=== PATIENT | female | born 1975 | race Caucasian/White ===

== ENCOUNTER → 2019-12-23 09:02 | Outpatient (BNVA) | payer OTHER, SELFPAY | PROVIDERS: Family Provider Internal Medicine; PCP Internal Medicine; Visit Provider Internal Medicine Rheumatology | DX: M35.00 Sjogren syndrome, unspecified (principal); I49.9 Cardiac arrhythmia, unspecified; H04.123 Dry eye syndrome of bilateral lacrimal glands; Q24.5 Malformation of coronary vessels; M25.50 Pain in unspecified joint | CPT/HCPCS: 36415; 80076; 82306; 82565; 85025; 85651; 86140; 99214 ==

== ENCOUNTER 2020-03-17 13:47 | Outpatient (CLI) | payer OTHER, SELFPAY ==
--- NOTE | 2020-03-17 14:15 | USCV_ITS ---
Norma Rodriguez Age: 44 Gender: F : 1975 Exam Date: 03/17/2020 14:15 Ordering Phys: Ariel Dueñas MD (Andy) ([email or web address]) Technologist: Carlie Alonso Exam Location: [facility] [place] Indication: HISTORY: Lower extremity pain. PROCEDURES: Bilateral duplex Venous Insufficiency study of the Deep and Superficial systems was carried out according to normal protocol with the patient in supine positon for deep system and dependent position for the superficial system. FINDINGS: There is no evidence of bilateral deep vein thrombosis. No evidence of superficial thrombosis in the bilateral saphenous system. Venous reflux is demonstrated in the RIGHT greater saphenous vein with a spectral Doppler display of greater than 500 milliseconds at all levels evaluated. No venous reflux noted in the RIGHT small saphenous vein. No venous reflux noted in the LEFT greater saphenous vein. No venous reflux noted in the LEFT small saphenous vein. CONCLUSIONS 1. No evidence of DVT in the above-mentioned identifiable veins. 2. Significant venous reflux of greater than 500 ms were noted on the right side, distal to the saphenofemoral junction and throughout the greater saphenous vein segments-proximal, mid, distal and below-knee segments. No significant venous reflux was noted in the small saphenous vein segments.The venous dimensions were ranging area from 0.58 to 0.71 cm, in these segments and were at a depth of greater than 1.5 cm from the surface. 3. No significant venous reflux was noted on the left side 4. No significant venous reflux in the deep veins. Dr Natalia Carnes MD [facility] (Electronically Signed) Final Date: 18 March 2020 10:13 S
== END 2020-03-17 13:48 | disposition home or self-care (01) ==
LOC: RAD 13:49
PROVIDERS: PCP Internal Medicine; Visit Provider Thoracic Surgery (Cardiothoracic Vascular Surgery)
DX: I83.813 Varicose veins of bilateral lower extremities with pain (principal); M79.604 Pain in right leg; M79.605 Pain in left leg
CPT/HCPCS: 93970

== ENCOUNTER → 2020-05-20 11:50 | Outpatient (BNVA) | payer OTHER, SELFPAY | PROVIDERS: PCP Internal Medicine; Visit Provider Nurse Practitioner Family | DX: Z20.828 Contact with and (suspected) exposure to other viral communicable diseases (principal); B34.9 Viral infection, unspecified | CPT/HCPCS: 87426 ==

== ENCOUNTER → 2020-05-22 10:49 | Outpatient (BNVA) | payer OTHER, SELFPAY | PROVIDERS: PCP Internal Medicine; Visit Provider Obstetrics & Gynecology | DX: R19.5 Other fecal abnormalities (principal); R14.0 Abdominal distension (gaseous); Z83.79 Family history of other diseases of the digestive system | CPT/HCPCS: 82784; 83516 ==

== ENCOUNTER 2020-05-29 08:41 | Day surgery (SDC) | payer OTHER, SELFPAY ==
[2020-05-28 07:34] VITALS: BMI 30.8
[2020-05-29 09:01] VITALS: BP 133/94; PULSE 82; RESP 18; TEMP 36.5; O2SAT 98
--- NOTE | 2020-05-29 09:10 | W.PM.OPSUD ---
Surgery/Procedure H&P Update DATE OF PROCEDURE: May 29, 2020 DATE H&P PERFORMED: 05/25/20 PREOP DIAGNOSIS: nv PLANNED PROCEDURE: Operation Date: 05/29/20 09:30 Proposed Procedures p EGD 36192 K52.9(Not Applicable) - Fernandez Veloz MD
--- NOTE | 2020-05-29 09:11 | ANES.PREANE2 ---
Pre-Anesthetic Assessment Pre-Anesthetic Assessment: Height/Weight: Height 1.7 m Weight 89.358 kg Temp Pulse Resp BP Pulse Ox 97.7 F 82 18 133/94 98 05/29/20 09:01 05/29/20 09:01 05/29/20 09:01 05/29/20 09:01 05/29/20 09:01 Preop Diagnosis: Nausea/Vomiting Proposed Procedure: Operation Date: 05/29/20 09:30 Proposed Procedures p EGD 63973 K52.9(Not Applicable) - Fernandez Veloz MD Familial anesthetic complications: PONV, but has done fine w/ endoscopies in the past Was Beta Aleksandar taken within 24 hours: N/A Last intake: Intake Last Liquid Date 05/28/20 Last Liquid Time 20:00 Last Solid Date 05/28/20 Last Solid Time 20:00 Social: Social History: No alcohol and No tobacco Exam: Pre-Anes Outpt Exam: alert, oriented x 3, clear to auscultation bilaterally and regular rate & rhythm Airway: Cervical ROM: WNL MP: 3 Dentition: Full (fragile teeth d/t sjogren's syndrome (dry mouth)) CV/HEM: CV/HEM: Arrythmia and HTN Comments: ? Myocardial bridge/internalized coronary vessels Patient can achive > 4 mETS without chest pain, syncope, SOB GI: GI: GERD Anesthetic Plan: ASA status: 2 Anesthesia: MAC Risk of > 500 ml blood loss (7ml/kg in children): No PFSH Anesthesia PFSH: Medical History (Updated 05/25/20 @ 14:09 by Fernandez Veloz MD) Dry eyes Dry mouth GERD (gastroesophageal reflux disease) HTN (hypertension) Myocardial bridge Primary Sjogren's syndrome Ventricular arrhythmia Surgical History S/P ACL repair S/P cholecystectomy Status post tubal ligation Family History Father Hypertension Cancer LUNG/PROSTATE Grandmother Diabetes CAD (coronary artery disease) Stroke Chronic kidney disease (CKD) Daughter Diabetes Mother CAD (coronary artery disease) Grandfather CAD (coronary artery disease) Social History (Updated 05/25/20 @ 13:[address]) Smoking and tobacco status: never smoked Alcohol intake: never History of recent travel: No Data Anesthesia Cardiac Studies: No Data to Display
[2020-05-29] MEDS: sodium chloride 0.9% 1,000 ML 30 ML IV (09:12)
[2020-05-29 09:23] VITALS: BP 116/65; PULSE 78; RESP 16; TEMP 36.7; O2SAT 98
[2020-05-29 10:32] VITALS: BP 119/89; PULSE 87; RESP 16; O2SAT 97
--- NOTE | 2020-05-29 18:38 | ANE.PACU2 ---
Inpatient post-anesthesia follow up: Airway intact: Yes Vital signs: Temperature 98.1 F Pulse Rate 87 Respiratory Rate 16 Blood Pressure 119/89 Pulse Oximetry 97 Oxygen Delivery Me thod Room Air Oxygen Flow Rate Fraction of Inspir ed Oxygen Hydration adequate: Yes Nausea and vomiting: No Pain level: 1 Mental status: Baseline
== END 2020-05-29 10:51 | disposition home or self-care (01) ==
PROVIDERS: PCP Internal Medicine; Visit Provider Internal Medicine
PROC: 0DJ08ZZ Inspection of Upper Intestinal Tract, Via Natural or Artificial Opening Endoscopic (ICD-10-PCS; CPT 43235; principal; 2020-05-29 09:30)
DX: R10.11 Right upper quadrant pain (principal); K52.9 Noninfective gastroenteritis and colitis, unspecified; I10 Essential (primary) hypertension; K21.9 Gastro-esophageal reflux disease without esophagitis
CPT/HCPCS: 12345; 43239; 88305; J2704; J7030

== ENCOUNTER 2020-06-02 07:36 | Outpatient (CLI) | payer OTHER, SELFPAY ==
--- NOTE | 2020-06-02 09:00 | CT_ITS ---
WS: [id number] CT ABDOMEN AND PELVIS WITH CONTRAST HISTORY: R63.4 - Abnormal weight loss TECHNIQUE: Imaging performed of the abdomen and pelvis with IV contrast. Single phase imaging of the abdomen. Coronal and sagittal reformats are submitted. All CT scans at [facility] use at least one of these dose optimization techniques: automated exposure control; mA and/or kV adjustment per patient size (includes targeted exams where dose is matched to clinical indication); or iterativ e reconstruction. IV CONTRAST: Omnipaque 300; 95 mL IV. Oral contrast: Yes. DLP: 1366.28 mGy.cm COMPARISON: 03/05/2010 Lower thorax: Lung bases are clear. Heart is normal size. Small hiatal hernia. Liver/biliary system: Normal size with no intrahepatic dilatation. Gallbladder: Status post cholecystectomy. Normal common bile duct. Pancreas: Normal. Spleen: Spleen is top normal size at 13 cm in length. Adrenal glands: Normal. Right kidney: Numerous cysts and calcifications associated with the RIGHT kidney. The largest cyst in the mid kidney measures 5.8 x 5.2 cm. No solid mass is identified. Largest calcification is 9 mm in the mid kidney. Left kidney: Numerous calcifications and cysts scattered throughout the kidney. The largest cyst kidn ey maximum diameter of 2.3 cm. There are numerous calcifications with the largest cluster measuring 1 .2 cm maximum diameter. No renal obstruction. Aorta: Normal. Lymphadenopathy: There are numerous small lymph nodes in the central mesentery along with infiltratio n of the central mesentery no pseudocapsule. There are several lymph nodes which are now present. The largest with a short axis diameter of 12 mm. There are a few small retroperitoneal lymph nodes in th e periaortic and retrocaval distribution which are not enlarged. New since the prior study. Free fluid: None. GI tract: Mild constipation. The appendix is normal. Abdominal wall: Unremarkable abdominal wall. No hernia. Pelvis: Well-distended urinary bladder. Prior hysterectomy. Bones: Mild degenerative disc disease and endplate osteophytes at L5-S1. CT/CT abdomen pelvis w con* [id number] IMPRESSION: 1. 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 Findings can be associated with chronic nonspecific inflammatio n of the small bowel mesentery. Additional evaluation for low-grade lymphoma is also within the differential. 2. Increasing size and number of bilateral renal cysts and renal calcification s. 3. Prior hysterectomy and cholecystectomy.
[2020-06-02] MEDS: iohexol 300 mg/mL 100 mL Btl IV (09:09)
== END 2020-06-02 07:37 | disposition home or self-care (01) ==
LOC: RAD 07:38
PROVIDERS: PCP Internal Medicine; Visit Provider Internal Medicine
DX: R63.4 Abnormal weight loss (principal); K65.4 Sclerosing mesenteritis; N28.1 Cyst of kidney, acquired; N20.0 Calculus of kidney; Z90.49 Acquired absence of other specified parts of digestive tract; Z90.710 Acquired absence of both cervix and uterus
CPT/HCPCS: 74177; 87635

== ENCOUNTER → 2020-06-22 09:02 | Outpatient (BNVA) | payer OTHER, SELFPAY | PROVIDERS: PCP Internal Medicine; Visit Provider Internal Medicine Rheumatology | DX: M35.00 Sjogren syndrome, unspecified (principal); Z79.899 Other long term (current) drug therapy; K65.4 Sclerosing mesenteritis; R76.8 Other specified abnormal immunological findings in serum; R59.0 Localized enlarged lymph nodes; K90.0 Celiac disease | CPT/HCPCS: 36415; 80076; 81001; 82565; 83883; 84155; 84165; 85025; 85651; 99214 ==

== ENCOUNTER → 2020-06-24 16:00 | Outpatient (BNVA) | payer OTHER, SELFPAY | PROVIDERS: PCP Internal Medicine; Visit Provider Internal Medicine | DX: R59.0 Localized enlarged lymph nodes (principal); K90.41 Non-celiac gluten sensitivity; R43.0 Anosmia | CPT/HCPCS: 87426 ==

== ENCOUNTER 2020-09-08 08:00 | Outpatient (CLI) | payer OTHER, SELFPAY ==
--- NOTE | 2020-09-08 09:30 | CT_ITS ---
WS: [id number] CT ABDOMEN PELVIS TECHNIQUE: Contrast-enhanced CT of the abdomen and pelvis with coronal and sagittal reformatted image s. CLINICAL INFORMATION: R59.0 - Localized enlarged lymph nodes COMPARISON: CT abdomen pelvis June 02, 2020 and March 05, 2010 DLP: 1144.[address] scans at [facility] use at least one of these dose optimization techniques: automat ed exposure control; mA and/or kV adjustment per patient size (includes targeted exams where dose is matched to clinical indication); or iterative reconstruction. FINDINGS: Previously described findings of sclerosing mesenteritis is unchanged. No evidence of progr ession. Prominent lymph nodes along the mesenteric root similar to the prior examination. No progress ed lymphadenopathy. Minimal induration in the central mesentery. No periaortic or retroperitoneal lym phadenopathy. Prior postoperative changes cholecystectomy and hysterectomy. Diffuse fatty infiltration of the liver . Normal portal vein and splenic vein. Normal spleen. Normal GE junction. Lung bases are well aerated . Normal pancreas. Adrenal glands are normal. No hydronephrosis in either kidney. Numerous bilateral renal cysts largest in the right measuring 6.0 x 4.7 CM. Nonobstructing calyceal renal parenchymal ca lculi. Both ureters are decompressed. A few sigmoid diverticuli. No evidence of small or large bowel obstruction. No free fluid in the pelv is. Normal caliber abdominal aorta. Tiny fat-containing umbilical hernia. Disc osteophyte complex L3-L4 with moderate to severe central c anal stenosis. Disc space narrowing L5-S1. Right ovarian cyst measuring 2.[address]/CT abdomen pelvis w con* [id number] IMPRESSION: 1. Previously described sclerosing enteritis is unchanged in the central mesen sherin with stable prominent lymph nodes. No evidence of progression. 2. No progressed abdominal or pelvic lymphadenopathy. 3. Stable bilateral renal cysts and nonobstructing renal parenchymal and calyc eal tip calculi. Largest right renal cyst measures 6.0 x 4.7 cm. 4. Mild diffuse fatty infiltration of the liver. 5. Prior cholecystectomy and hysterectomy. 6. Overall no significant changes from previous.
[2020-09-08] MEDS: iohexol 300 mg/mL 50 mL Btl PO (09:31)
[2020-09-08] MEDS: iohexol 300 mg/mL 100 mL Btl IV (09:31)
== END 2020-09-08 08:01 | disposition home or self-care (01) ==
LOC: RADWPI 08:02
PROVIDERS: PCP Internal Medicine; Visit Provider Internal Medicine
DX: R59.0 Localized enlarged lymph nodes (principal); Z90.49 Acquired absence of other specified parts of digestive tract; Z90.710 Acquired absence of both cervix and uterus; K76.0 Fatty (change of) liver, not elsewhere classified; Q61.02 Congenital multiple renal cysts; K52.9 Noninfective gastroenteritis and colitis, unspecified
CPT/HCPCS: 74177; Q9967

== ENCOUNTER 2020-10-22 09:42 | Outpatient (CLI) | payer OTHER, SELFPAY ==
--- NOTE | 2020-10-22 09:47 | XR_ITS ---
WS: [id number] KUB, AP view, 10/22/2020 Clinical Data: stones Comparison: KUB, 03/05/2010, CT abdomen and pelvis, 09/08/2020. Findings: No abnormal intraabdominal masses are seen. There is no dilatated small bowel or evidence of obstruct ion. There are numerous bilateral renal calcifications. The largest calcification is 1.3 cm in the left ki dney and the largest is 0.9 cm in the right kidney. There is is a large amount of fecal material thro ughout the colon. XR/XR KUB [id number] Impression: Numerous bilateral renal calculi.
== END 2020-10-22 09:43 | disposition home or self-care (01) ==
LOC: RAD 09:45
PROVIDERS: PCP Internal Medicine; Visit Provider Urology
DX: N20.0 Calculus of kidney (principal)
CPT/HCPCS: 74018

== ENCOUNTER → 2020-10-23 08:38 | Outpatient (BNVA) | payer OTHER, SELFPAY | PROVIDERS: PCP Internal Medicine; Visit Provider Urology | DX: N20.9 Urinary calculus, unspecified (principal) | CPT/HCPCS: 81003 ==

== ENCOUNTER → 2020-10-26 09:31 | Outpatient (BNVA) | payer OTHER, SELFPAY | PROVIDERS: PCP Internal Medicine; Visit Provider Urology | DX: N20.0 Calculus of kidney (principal); Z20.822 Contact with and (suspected) exposure to COVID-19 | CPT/HCPCS: 87635 ==

== ENCOUNTER 2020-10-30 11:36 | Day surgery (SDC) | payer OTHER, SELFPAY ==
[2020-10-29 14:42] VITALS: BMI 27.3
[2020-10-30] VITALS (16 sets, daily range): BP systolic 95–124; BP diastolic 57–87; PULSE 54–108; RESP 16–18; TEMP 36.4–37.2; O2SAT 95–99
--- NOTE | 2020-10-30 | SCC_ITS ---
Procedure Done: 1. Cystoscopy with right retrograde ureteropyelogram 2. Right ureteroscopy, laser lithotripsy, stent (4.5 x 28 cm no string) 33.1 seconds of fluoroscopic guidance, for a cumulative dose of 6.94 mGy, was provided to Dr. Alvarado by the radiology department. C-arm images of the abdomen were saved for the patient's permanent record. [facility]
[2020-10-30] MEDS: sodium chloride 0.9% 1,000 ML 30 ML IV (12:00)
--- NOTE | 2020-10-30 12:18 | P.ANESASSM_ITS ---
Pre-Anesthetic Assessment Pre-Anesthetic Assessment: Height/Weight: Height 1.7 m Weight 79.379 kg Temp Pulse Resp BP Pulse Ox 99.0 F 77 18 108/72 99 10/30/20 11:54 10/30/20 11:54 10/30/20 11:54 10/30/20 11:54 10/30/20 11:54 Preop Diagnosis: Right distal ureteral calculi Proposed Procedure: Operation Date: 10/30/20 13:00 Proposed Procedures p Cystoscopy 08830 66901 23431 N20.0 N20.1(Not Applicable) - Curtis Alvarado MD s Retrograde Pyelogram(Right) - MD milad Prieto Ureteroscopy(Not Applicable) - Curtis Alvarado MD s Laser Lithotripsy(Not Applicable) - Curtis Alvarado MD s Ureteral Stent Placement(Not Applicable) - Curtis Alvarado MD Was Beta Aleksandar taken within 24 hours: N/A Was Clonidine taken within 24 hours: N/A Last intake: Intake Last Liquid Date 10/30/20 Last Liquid Time 07:00 Last Solid Date 10/30/20 Last Solid Time 18:30 Social: Social History: No alcohol and No tobacco Exam: Pre-Anes Outpt Exam: alert, oriented x 3, clear to auscultation bilaterally and regular rate & rhythm Airway: Submandibular: WNL Cervical ROM: WNL MP: 2 Dentition: Full CV/HEM: CV/HEM: Arrythmia (SVT) and HTN GI: GI: GERD Comments: Celiac Dz Neuropsych: Neuropsych: HERNANDEZ Anesthetic Plan: ASA status: 2 Anesthesia: General Risk of > 500 ml blood loss (7ml/kg in children): No PFSH Anesthesia PFSH: Medical History Adult celiac disease Bilateral renal stones GERD (gastroesophageal reflux disease) HTN (hypertension) Migraine headache with aura Myocardial bridge Nephrolithiasis Primary Sjogren's syndrome Rheumatoid factor positive Right ureteral stone Sclerosing mesenteritis Ventricular arrhythmia Surgical History H/O vaginal surgery (10/04/02) A&P repair, Katelyn application. Dx: Cystocele, rectocele, HUMA. [place]. Card [place] [facility] [place]. History of esophagogastroduodenoscopy (EGD) (10/05/20) with sphincterotomy of sphincter of oddi. Performed in [place] S/P ACL repair (~1993) Open on Right S/P bilateral breast reduction (~03/2000) S/P cholecystectomy (~1996) Laparoscopic. Performed by Dr. Burgess at [facility] in [place] S/P cystoscopy with ureteral stent placement (03/06/10) S/P laparoscopic assisted vaginal hysterectomy (LAVH) (12/04/18) With LSO, RS, Anterior vaginal repair, Solyx SIS, cystoscopy. Dx: Incomplete uterovaginal prolapse, HUMA. Performed by Dr. Card at [facility] [place]. S/P tubal ligation (06/01/12) LTF. Performed by Dr. Card at [facility] [place]. Status post hysteroscopic ablation of endometrium (05/09/17) NovaSure. Dx: Menorrhagia. Performed by Dr. Card at [facility] [place]. Family History Father Hypertension Cancer LUNG/PROSTATE Grandmother Diabetes Maternal CAD (coronary artery disease) Maternal Stroke Maternal Chronic kidney disease (CKD) Maternal Daughter Diabetes Mother CAD (coronary artery disease) Arthritis Family history of thyroid problem Grandfather CAD (coronary artery disease) Paternal Sister Asthma Migraine headache Family/Other CAD (coronary artery disease) Maternal aunt Chronic kidney disease (CKD) Maternal aunt Social History Smoking and tobacco status: never smoked Alcohol intake: never History of recent travel: No Data Anesthesia Cardiac Studies: No Data to Display
--- NOTE | 2020-10-30 13:06 | P.HPUD_ITS ---
Surgery/Procedure H&P Update DATE OF PROCEDURE: October 30, 2020 DATE H&P PERFORMED: 10/23/20 H&P UPDATE INFORMATION: I have reviewed H&P completed within last 30 days, I have examined patient prior to procedure, No changes to prior documentation and H&P is in [facility] EMR on date indicated CHANGES TO PREVIOUS DOCUMENTATION: In retrospect she thinks she has had this right-sided flank pain now likely consistent with renal colic for probably off a nd on for 3 years. Reviewed that thankfully her kidney looks much better preserved than that would imply. We also reviewed again the concern related to chronic inflammatory changes below the stones which may make access to the upper tract much more tenuous. Discussed stenting again as the sole treatment today if could not successfully get to the stone with the scope safely or even considering pe rcutaneous nephrostomy tube placement with antegrade stent placement if access cannot be obtained. She expressed understanding PREOP DIAGNOSIS: Right distal ureteral calculi PLANNED PROCEDURE: Operation Date: 10/30/20 13:00 Proposed Procedures p Cystoscopy 23662 [id number] 72956 N20.0 N20.1(Not Applicable) - Curtis Alvarado MD s Retrograde Pyelogram(Right) - Curtis Alvarado MD s Ureteroscopy(Not Applicable) - Curtis Alvarado MD s Laser Lithotripsy(Not Applicable) - Curtis Alvarado MD s Ureteral Stent Placement(Not Applicable) - Curtis Alvarado MD
[2020-10-30] MEDS: levofloxacin-dextrose 5 % 500 MG/100 ML PREMIX 100 MG IV (13:12)
--- NOTE | 2020-10-30 14:29 | SUR.OPER ---
family was updated via cell phone
--- NOTE | 2020-10-30 14:52 | P.OP_ITS ---
Operative Report Date of procedure: October 30, 2020 Pre-op Diagnosis: Right distal ureteral calculi Post-op diagnosis: same Procedure Done: 1. Cystoscopy with right retrograde ureteropyelogram 2. Right ureteroscopy, laser lithotripsy, stent (4.5 x 28 cm no string) Specimens removed/disposition: Stone fragments Pathology: Stone fragments Surgeon: Christiano Anesthesia: General Estimated blood loss: None Urine output: Not measured Complications: None Findings: Stones in the expected position. Access to them was relatively easy. Completely fragmented and fragments were removed with basketing and flushing of the ureter. 4.5 Scottish by 28 cm double-pigtail stent without string was left in place. Condition: stable Disposition: PACU Brief History: Is a 44-year-old white female with a history of complex stone disease MSK type pattern She was found on recent CT scan done for right flank pain to have a column of stones with mild obstructive changes. The column was in the distal ureter several centimeters above the right ureteral orifice. She is admitted for endoscopic treatment of the stones. Procedure: After routine preoperative evaluation examination and obtaining of informed consent she was taken to the operating suite on 10/30/2020 where general anesthesia was administered without difficulty after appropriate timeout was performed, SCDs confirmed to be functioning, preoperative antibiotics administered, beta-yong protocol confirmed. Prepped and draped in the usual sterile fashion in dorsolithotomy position p aying careful attention to avoiding pressure points. 21 Scottish cystoscope with 30 degree lens was introduced into the urethra meatus and advanced into the bladder without difficulty. The bladder was systematically examined and found to be within normal limits. An 8 Scottish cone-tip catheter was intubated to the right ureteral orifice for right retrograde ureteropyelogram which demonstrated normal caliber of the distal ureter extending about 3 cm from the right ureteral orifice up to the column of stones seen previously. The contrast easily advanced beyond the stone into the proximal ureter. No additional stones were seen in the ureter proximal to this column that was already identified. A flexible tip guidewire was advanced up the ureter thankfully easily bypassing the stone column and curling in the area of the renal pelvis. The distal ureter was then dilated with an 18 Scottish 4 cm balloon. The 7.5 Scottish offset semirigid ureteroscope was advanced up the ureter next to the guidewire and the stones were encountered in the expected position. A 365 ?m thulium superpulse laser fiber was utilized for fragmentation of the stones. The stones were methodically fragmented with combination of fragmentation and dusting technique one by one until the column was completely fragmented. A good portion of the sand and fragmentation particles flushed free from the ureter as the process continued the remaining pieces which were quite numerous were removed with a parachute basket with multiple passes. No tension and no problem removing these fragments. Final passage showed no large fragments and very little sand remaining. The scope was passed up to the UPJ. The ureter was again inspected as the scope was removed. There was some inflammatory change as expected where the stones have been located distally and for that reason it was decided to leave a stent. A 4.5 Scottish by 28 cm double-pigtail stent was then advanced over the guidewire through the cystoscope into appropriate position as confirmed via fluoroscopy. No string. The bladder had a large amount of sand fragments that were flushed free from the bladder. Final inspection revealed stent in good position. No active bleeding. And the procedure was completed. She tolerated procedure well without complications and was awakened in the operating room and returned to recovery room in stable condition. PLANS: 1. Anticipate discharge from outpatient surgery 2. Follow-up next week for cystoscopy and stent removal. Associated Problem List Diagnoses (1) Right ureteral stone: (2) Bilateral renal stones:
[2020-10-30] MEDS: fentaNYL 50 mcg/mL INJ 2mL IVP (14:57)
[2020-10-30] MEDS: HYDROmorphone 1 mg/mL INJ 1 mL 0.5 MG IVP (15:17)
--- NOTE | 2020-10-30 15:25 | SUR.PHASEI ---
pt awake on admit to PACU, PT RESTLESS WRITHING IN BED C/O OF PAIN SEE MED GIVEN, PT THEN CALMS DOWN, VSS AND THEN AWAKES AGAIN MOANING IN PAIN,VSS SEE PAIN MED GIVEN PER DR HERNANDEZ'S OK, HE ORDERED HER TO HAVE DILAUDID FOR PAIN IN PACU.
[2020-10-30] MEDS: ondansetron 2 mg/ML SDV 2 mL 4 MG IVP (16:20)
--- NOTE | 2020-10-30 16:21 | ANE.PACU2 ---
Inpatient post-anesthesia follow up: Airway intact: Yes Vital signs: Temperature 97.5 F Pulse Rate 70 Respiratory Rate 18 Blood Pressure 118/66 Pulse Oximetry 96 Oxygen Delivery Me thod Room Air Oxygen Flow Rate 8 Fraction of Inspir ed Oxygen Hydration adequate: Yes Nausea and vomiting: No Pain level: 2 Mental status: Baseline
[2020-10-30] MEDS: metoclopramide 5 mg/mL SDV 2 mL 10 MG IVP (16:35)
== END 2020-10-30 17:24 | disposition home or self-care (01) ==
PROVIDERS: PCP Internal Medicine; Visit Provider Urology
PROC: 0TJB8ZZ Inspection of Bladder, Via Natural or Artificial Opening Endoscopic (ICD-10-PCS; CPT 52000; principal; 2020-10-30 13:00)
PROC: (CPT 74420; 2020-10-30 13:00)
PROC: 0TJ98ZZ Inspection of Ureter, Via Natural or Artificial Opening Endoscopic (ICD-10-PCS; CPT 52351; 2020-10-30 13:00)
PROC: (CPT 52356; 2020-10-30 13:00)
PROC: (CPT 50605; 2020-10-30 13:00)
DX: N20.1 Calculus of ureter (principal); K21.9 Gastro-esophageal reflux disease without esophagitis; I10 Essential (primary) hypertension
CPT/HCPCS: 52356; 76000; 82365; 88300; 96374; 96375; C2625; J1100; J1170; J1956; J2250; J2405; J2704; J2765; J3010; J3490; J7030

== ENCOUNTER 2020-11-06 07:35 | Outpatient (CLI) | payer OTHER, SELFPAY ==
--- NOTE | 2020-11-06 07:39 | XR_ITS ---
WS: [id number] Exam: XR KUB [id number] Date/Time of Exam: 11/06/2020 7:47 AM Reason For Exam: post lithotripsy A right-sided double-J ureteral stent is in place appearing to be in appropriate position. There are numerous bilateral renal calculi noted. No bowel obstruction or free air. Marked constipation. Signs of prior cholecystectomy. XR/XR KUB [id number] IMPRESSION: 1. Right-sided ureteral stent in place in satisfactory location. 2. Multiple bilateral renal stones. 3. Constipation.
== END 2020-11-06 07:36 | disposition home or self-care (01) ==
LOC: RAD 07:38
PROVIDERS: PCP Internal Medicine; Visit Provider Urology
DX: Z98.890 Other specified postprocedural states (principal); N20.1 Calculus of ureter; Z96.0 Presence of urogenital implants; N20.0 Calculus of kidney; K59.00 Constipation, unspecified
CPT/HCPCS: 74018; 81003

== ENCOUNTER → 2020-11-12 11:50 | Outpatient (BNVA) | payer OTHER, SELFPAY | PROVIDERS: PCP Internal Medicine; Visit Provider Obstetrics & Gynecology | DX: Z01.419 Encounter for gynecological examination (general) (routine) without abnormal findings (principal); K59.00 Constipation, unspecified; R10.11 Right upper quadrant pain; R50.9 Fever, unspecified | CPT/HCPCS: 80053; 82150; 83690; 85007; 85027 ==

== ENCOUNTER 2020-11-16 16:12 | Outpatient (CLI) | payer OTHER, SELFPAY ==
--- NOTE | 2020-11-16 16:19 | XRR_ITS ---
PROCEDURE INFORMATION: Exam: XR Chest Exam date and time: 11/16/2020 4:25 PM Age: 44 years old Clinical indication: Other: Abnormal breath sounds; Prior surgery; Surgery type: Hysterectomy TECHNIQUE: Imaging protocol: XR of the chest. Views: 2 views. Total images: 2 COMPARISON: CR Chest 2 views* [id number] 05/28/2019 10:23 AM FINDINGS: Lungs: No visible active interstitial or alveolar airspace disease. Pleural spaces: Unremarkable. No pleural effusion. No pneumothorax. Heart/Mediastinum: Unremarkable. No cardiomegaly. Bones/joints: Unremarkable. Organs: Status post cholecystectomy. XR/XR chest 2V* [id number] IMPRESSION: Nonacute.
== END 2020-11-16 16:13 | disposition home or self-care (01) ==
PROVIDERS: PCP Internal Medicine; Visit Provider Internal Medicine
DX: R09.89 Other specified symptoms and signs involving the circulatory and respiratory systems (principal)
CPT/HCPCS: 71046

== ENCOUNTER → 2020-11-25 09:16 | Outpatient (BNVA) | payer OTHER, SELFPAY | PROVIDERS: PCP Internal Medicine; Visit Provider Nurse Practitioner Family | DX: N20.0 Calculus of kidney (principal); N20.9 Urinary calculus, unspecified; I10 Essential (primary) hypertension; Z79.899 Other long term (current) drug therapy | CPT/HCPCS: 80048; 81003; 82131; 82140; 82340; 82436; 82507; 82570; 83735; 83935; 84100; 84300; 84550 ==

== ENCOUNTER → 2020-12-14 08:50 | Outpatient (BNVA) | payer OTHER, SELFPAY | PROVIDERS: PCP Internal Medicine; Visit Provider Internal Medicine Rheumatology | DX: M35.00 Sjogren syndrome, unspecified (principal); R76.8 Other specified abnormal immunological findings in serum; K65.4 Sclerosing mesenteritis; N20.0 Calculus of kidney | CPT/HCPCS: 99214 ==

== ENCOUNTER 2021-01-04 07:16 | Outpatient (CLI) | payer OTHER, SELFPAY ==
--- NOTE | 2021-01-04 07:15 | XRR_ITS ---
PROCEDURE INFORMATION: Exam: XR Abdomen Exam date and time: 01/04/2021 7:15 AM Age: 45 years old Clinical indication: Condition or disease; Kidney or ureter condition; Calculus (stone) in kidney; Prior surgery; Surgery type: Hyst, tubal, ercp, gb; Additional info: Ureteral stone TECHNIQUE: Imaging protocol: XR of the abdomen. Views: Frontal supine view of the abdomen. 1 View. COMPARISON: CR XR KUB [id number] 11/06/2020 7:55 AM FINDINGS: Gastrointestinal tract: Normal. No bowel dilation. Organs: There is bilateral nephrolithiasis more prominently on the left side. This has not significantly changed since previous study. No definite ureteral calculi are seen. Small phleboliths are present in the pelvis. Bones/joints: Unremarkable. XR/XR KUB [id number] IMPRESSION: 1. Bilateral nephrolithiasis similar to the previous study. 2. No definite ureteral calculi.
== END 2021-01-04 07:17 | disposition home or self-care (01) ==
LOC: RAD 07:18
PROVIDERS: PCP Internal Medicine; Visit Provider Urology
DX: N20.1 Calculus of ureter (principal); N20.0 Calculus of kidney
CPT/HCPCS: 74018; 81003; 87086

== ENCOUNTER → 2021-02-13 14:54 | Outpatient (BNVA) | payer OTHER, SELFPAY | PROVIDERS: PCP Internal Medicine; Visit Provider Registered Nurse Neonatal Intensive Care | DX: Z20.822 Contact with and (suspected) exposure to COVID-19 (principal) | CPT/HCPCS: 87635 ==

== ENCOUNTER 2021-03-22 08:31 | Outpatient (CLI) | payer OTHER, SELFPAY ==
[2021-03-22] MEDS: iohexol 300 mg/mL 100 mL Btl IV (09:28)
--- NOTE | 2021-03-22 10:00 | CT_ITS ---
WS: [id number] CT ABDOMEN PELVIS TECHNIQUE: Noncontrast CT of the abdomen and contrast-enhanced CT of the abdomen and pelvis with kendra nal and sagittal reformatted images. CLINICAL INFORMATION: N20.1 - Calculus of ureter COMPARISON: CT 09/08/2020 and 06/02/2020 DLP: 1723.[address] scans at [facility] use at least one of these dose optimization techniques: automated e xposure control; mA and/or kV adjustment per patient size (includes targeted exams where dose is matc hed to clinical indication); or iterative reconstruction. FINDINGS: FINDINGS: Progressed right hydronephrosis with prominent right ureterectasis. This is progressed compared to pr evious. Pelvic phleboliths. No visualized obstructing renal or ureteral calculi. Delayed emptying of the right kidney. No opacification right ureter on the delayed images. No obstructing left renal or ureteral calculi. Multiple nonobstructing renal parenchymal calculi dayna lar in appearance. Multicystic kidneys bilaterally. 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 No evidence of progression. Promi nent lymph nodes along the mesenteric root similar to the prior examination. No progressed lymphadeno vickie. Minimal induration in the central mesentery. No periaortic or retroperitoneal lymphadenopathy. Prior postoperative changes cholecystectomy and hysterectomy. Diffuse fatty infiltration of the liver. Pneumobilia. Normal portal vein and splenic vein. Normal spl een. Normal GE junction. Lung bases are well aerated. Normal pancreas. Adrenal glands are normal. A few sigmoid diverticuli. No evidence of small or large bowel obstruction. No free fluid in the pel vis. Normal caliber abdominal aorta. Tiny fat-containing umbilical hernia. Disc osteophyte complex L3 -L4 with moderate to severe central canal stenosis. Disc space narrowing L5-S1. Right ovarian cyst me asuring 2.[address]/CT abdomen pelvis wo/w [id number] IMPRESSION: 1. Progressed right hydronephrosis with delayed emptying. Advanced right hydro nephrosis with ureterectasis. Ureter is dilated into the pelvis. No visualized obstructing renal or ureteral calculi. Recommend urology consultation. 2. No hydronephrosis in the left kidney. 3. Multicystic kidneys bilaterally. 4. Stable previously described slight sclerosing mesenteritis central mesenter y stable compared to the prior examination. Stable prominent lymph nodes. 5. No progressive abdominal or pelvic lymphadenopathy. 6. Prior cholecystectomy and hysterectomy.
== END 2021-03-22 08:32 | disposition home or self-care (01) ==
PROVIDERS: PCP Internal Medicine; Visit Provider Internal Medicine
DX: R63.4 Abnormal weight loss (principal); N20.1 Calculus of ureter; N13.30 Unspecified hydronephrosis; N13.4 Hydroureter; Q61.02 Congenital multiple renal cysts; Z90.49 Acquired absence of other specified parts of digestive tract; Z90.710 Acquired absence of both cervix and uterus
CPT/HCPCS: 74178; Q9967

== ENCOUNTER → 2021-03-24 13:09 | Outpatient (BNVA) | payer OTHER, SELFPAY | PROVIDERS: PCP Internal Medicine; Visit Provider Nurse Practitioner Women's Health | DX: R30.0 Dysuria (principal); N39.0 Urinary tract infection, site not specified | CPT/HCPCS: 81000; 87086 ==

== ENCOUNTER 2021-04-09 10:34 | Outpatient (CLI) | payer OTHER, SELFPAY ==
--- NOTE | 2021-04-09 10:15 | XR_ITS ---
WS: [id number] Exam: XR KUB [id number] Date/Time of Exam: 04/09/2021 10:38 AM Reason For Exam: stones Comparison 01/04/2021. Multiple calcifications are seen over the left renal silhouette suggesting multiple renal calculi. Th ere are also calcifications seen over the right kidney also suspicious for renal stones. No bowel obs truction or free air. Moderate amount stool in the colon. No sign of organ enlargement. Nonspecific b ilateral pelvic calcifications noted. Regional bony elements are intact. Degenerative changes of the lower lumbar spine. XR/XR KUB [id number] IMPRESSION: 1. Calcifications superimposing both kidneys more numerous on the left than the right suggesting renal stones. 2. No acute abdominal process.
== END 2021-04-09 10:35 | disposition home or self-care (01) ==
PROVIDERS: PCP Internal Medicine; Visit Provider Urology
DX: N20.0 Calculus of kidney (principal); Z20.822 Contact with and (suspected) exposure to COVID-19
CPT/HCPCS: 74018; 81003; 87635

== ENCOUNTER 2021-04-16 11:25 | Day surgery (SDC) | payer OTHER, SELFPAY ==
[2021-04-15 15:45] VITALS: BMI 28.0
[2021-04-16] VITALS (13 sets, daily range): BP systolic 85–141; BP diastolic 59–78; PULSE 5–91; RESP 12–22; TEMP 36.1–36.7; O2SAT 91–100
--- NOTE | 2021-04-16 | SCC_ITS ---
Procedure Done: 1. Cystoscopy with right retrograde ureteropyelogram 2. Right ureteroscopy with dilation of ureteral stricture 3. Right ureteral stent placement 87.1 seconds of fluoroscopic guidance, for a cumulative dose of 26.01 mGy, was provided to by the radiology department. C-arm images of the abdomen were saved for the patient's permanent record. [facility]
--- NOTE | 2021-04-16 11:32 | SC_ITS ---
WS: [id number] C-arm FL for Urology REASON FOR EXAM: Right ureteral obstruction FINDINGS: Initial injection into the proximal right ureter demonstrates an area of severe stenosis with contras t partially opacifying a dilated more proximal ureter which has irregular filling defects. Congruent with the CT scan of 03/22/2021. Last image demonstrates a ureteral stent at the level of the right renal pelvis with some contrast ou tlining severely dilated pyelocalyceal system, congruent with the previous CT scan. [place]/C-arm [place] for Urology IMPRESSION: Right ureteral stent placement.
--- NOTE | 2021-04-16 12:06 | P.ANESASSM_ITS ---
Pre-Anesthetic Assessment Pre-Anesthetic Assessment: Height/Weight: Height 1.7 m Weight 81.193 kg Temp Pulse Resp BP Pulse Ox 98.0 F 5 L 18 141/66 100 04/16/21 11:57 04/16/21 11:57 04/16/21 11:57 04/16/21 11:57 04/16/21 11:57 Preop Diagnosis: Right ureteral obstruction Proposed Procedure: Operation Date: 04/16/21 13:00 Proposed Procedures p Cystoscopy 73679 [id number] 42971 N20.1(Not Applicable) - Curtis Alvarado MD s Retrograde Pyelogram(Not Applicable) - Curtis Alvarado MD s Ureteroscopy(Not Applicable) - Curtis Alvarado MD s Ureteral Stent Placement(Not Applicable) - Curtis Alvarado MD Was Beta Aleksandar taken within 24 hours: N/A Was Clonidine taken within 24 hours: N/A Last intake: Intake Last Liquid Date 04/15/21 Last Liquid Time 18:00 Last Solid Date 04/15/21 Last Solid Time 18:00 Social: Social History: No alcohol and No tobacco Exam: Pre-Anes Outpt Exam: alert, oriented x 3, clear to auscultation bilaterally and regular rate & rhythm Airway: Submandibular: WNL Cervical ROM: WNL MP: 2 Dentition: Full GI: GI: GERD Comments: Celiac dz Musc/skel: Musc/avery: RA Anesthetic Plan: ASA status: 2 Anesthesia: General Other: TIVA (PONV) Risk of > 500 ml blood loss (7ml/kg in children): No PFSH Anesthesia PFSH: Medical History Adult celiac disease Bilateral renal stones GERD (gastroesophageal reflux disease) HTN (hypertension) Hydronephrosis, right Migraine headache with aura Myocardial bridge Nephrolithiasis Primary Sjogren's syndrome Rheumatoid factor positive Right ureteral stone Sclerosing mesenteritis Ventricular arrhythmia Surgical History H/O vaginal surgery (10/04/02) A&P repair, Katelyn application. Dx: Cystocele, rectocele, HUMA. [place] [facility] [place]. History of esophagogastroduodenoscopy (EGD) (10/05/20) with sphincterotomy of sphincter of oddi. Performed in [place] S/P ACL repair (~1993) Open on Right S/P bilateral breast reduction (~03/2000) S/P cholecystectomy (~1996) Laparoscopic. [place] Burg[place] [facility] [place] S/P cystoscopy with ureteral stent placement (03/06/10) S/P laparoscopic assisted vaginal hysterectomy (LAVH) (12/04/18) With LSO, RS, Anterior vaginal repair, Solyx SIS, cystoscopy. Dx: Incomplete uterovaginal prolapse, HUMA. [place]. Card [place] [facility] [place]. S/P tubal ligation (06/01/12) LTF. [place]. Card [place] [facility] [place]. Status post hysteroscopic ablation of endometrium (05/09/17) NovaSure. Dx: Menorrhagia. [place]. [place] [facility] [place]. Family History Father Hypertension Cancer LUNG/PROSTATE Grandmother Diabetes Maternal CAD (coronary artery disease) Maternal Stroke Maternal Chronic kidney disease (CKD) Maternal Daughter Diabetes Mother CAD (coronary artery disease) Arthritis Family history of thyroid problem Grandfather CAD (coronary artery disease) Paternal Sister Asthma Migraine headache Family/Other CAD (coronary artery disease) Maternal aunt Chronic kidney disease (CKD) Maternal aunt Social History Alcohol intake: never Marital status: Current occupational status: employed History of recent travel: No Data Anesthesia Cardiac Studies: No Data to Display
[2021-04-16] MEDS: sodium chloride 0.9% 1,000 ML 30 ML IV (12:30)
[2021-04-16] MEDS: ondansetron 2 mg/ML SDV 2 mL 4 MG IVP (12:30)
[2021-04-16] MEDS: diphenhydrAMINE 50 mg/mL SDV 1mL 12.5 MG IVP (12:30)
--- NOTE | 2021-04-16 13:06 | P.HPUD_ITS ---
Surgery/Procedure H&P Update DATE OF PROCEDURE: April 16, 2021 DATE H&P PERFORMED: 04/09/21 H&P UPDATE INFORMATION: I have reviewed H&P completed within last 30 days, I have examined patient prior to procedure, No changes to prior documentation and H&P is in [facility] EMR on date indicated PREOP DIAGNOSIS: Right ureteral obstruction PLANNED PROCEDURE: Operation Date: 04/16/21 13:00 Proposed Procedures p Cystoscopy 21709 [id number] 44553 N20.1(Not Applicable) - Curtis Alvraado MD s Retrograde Pyelogram(Not Applicable) - Curtis Alvarado MD s Ureteroscopy(Not Applicable) - Curtis Alvarado MD s Ureteral Stent Placement(Not Applicable) - Curtis Alvarado MD
[2021-04-16] MEDS: levofloxacin-dextrose 5 % 500 MG/100 ML PREMIX 100 MG IV (13:45)
[2021-04-16] MEDS: iohexol 300 mg/mL 50 mL Btl (OR ONLY) XX (13:55)
--- NOTE | 2021-04-16 14:38 | P.OP_ITS ---
Operative Report Date of procedure: April 16, 2021 Pre-op Diagnosis: Right ureteral obstruction Post-op diagnosis: same Procedure Done: 1. Cystoscopy with right retrograde ureteropyelogram 2. Right ureteroscopy with dilation of ureteral stricture 3. Right ureteral stent placement Implants: 8.5 Singaporean by 28 cm double-pigtail stent without string Pathology: none sent Surgeon: Christiano Anesthesia: General Estimated blood loss: Less than 10 cc Urine output: Not measured Complications: None Findings: Stricture was found roughly at the level of the pelvic vessels crossing. It was very tight and extended for about a centimeter to 1.5 cm in length. It dilated up very nicely with only 6 esther of pressure. The ureter proximal to that point was very dilated. No lesions were identified at that other than the stricture. There was a lot of sediment in the kidney which was irrigated out. The stone seen on KUB could not be identified intracollecting system. Stent left indwelling for further healing of the dilated area. Condition: stable Disposition: PACU Brief History: Norma is a delightful 45-year-old white female with a history of stone disease who was discovered earlier this year to have a large stone burden in the right distal ureter with chronic hydronephrosis and pain. She was treated with endoscopic laser lithotripsy and the procedure went well. Recently she started having increasing abdominal pain and a CT scan showed marked increase in right hydroureteronephrosis with extension down to roughly the pelvic vessels. No stones could be identified in that area. It was presumed that she had a ureteral stricture. She is admitted now for further evaluation of that with hopes for dilation. She was also seen on KUB to have a stone in the kidney that was felt to be likely in the collecting system but she does have MSK changes so it was not clear. Plans were if easy access to the kidney can be obtained to try to treat the stone with laser lithotripsy at the same time Procedure: After routine preoperative evaluation examination and obtaining of informed consent she was taken to the operating suite on 04/16/2021 where general anesthesia was administered without difficulty after appropriate timeout was performed, SCDs confirmed to be functioning, preoperative antibiotics administered, beta-yong protocol confirmed. Prepped and draped in usual sterile fashion in dorsolithotomy position paying careful attention to avoiding pressure points. 21 Singaporean cystoscope with 30 degree lens was introduced into the urethra meatus and advanced into the bladder under videoscopy. The bladder was systematically examined and found to be within normal limits. An 8 Singaporean cone-tip catheter was intubated into the right ureteral orifice for right retrograde ureteropyelogram: The right distal ureter was normal up until roughly the all crossing of the pelvic vessels where there was a 1.5 cm very narrowed strictured area. The ureter proximal to that point did fill somewhat with contrast and it was markedly dilated as confirming CT scan findings. A flexible tip guidewire was advanced up the right ureter easily advancing through the strictured area up the right ureter into the dilated collecting system. An open-ended ureteral catheter was advanced over the guidewire up into the renal pelvis and contrast was injected for visualization of the system and it confirmed a severely dilated collecting system. A 7 Singaporean offset semirigid ureteroscope was advanced next to the safety wire (wire secured to the drapes with hemostat) and up to the level of the stricture. A second guidewire was passed through the ureteroscope through the narrowed area and passed up into the kidney. The scope was manipulated through the narrowed area and was found to be very tight. The ureter proximal to that point was as expected very dilated. There was some sediment in this area. The scope was removed and the second wire was utilized as a working wire for a 15 Singaporean 4 cm balloon which was passed over and across the stricture and then dilated. 6 esther of pressure was required to complete the dilation and then the balloon was deflated to 2 esther of pressure maintained at that for about for 5 minutes. The balloon was deflated and easily removed. A flexible ureteroscope was advanced over the working wire up into the renal pelvis. The system was very dilated. There was a large amount of sediment in all the dilated calyces and this was irrigated free for the most part completely. Inspection of the calyces failed to reveal the stone that was felt to likely be in the calyx. It is possible that it was intraparenchymal but could not say that for sure. That being said I could not find the stone with careful inspection of the her dilated system. The scope was removed under visualization. The area of dilation was traumatized from balloon as expected but no through and through perforation etc. It was decided to leave a stent indwelling for healing and an 8.5 Singaporean by 28 cm double-pigtail stent was advanced over the safety wire that had been backloaded through the cystoscope into appropriate position as confirmed via fluoroscopy and cystoscopy. The bladder was drained and the procedure was completed. Tolerated procedure well without complications and was awakened in the operating room and returned to the recovery room in stable condition. PLANS: 1. Anticipate discharge from outpatient surgery today 2. We will plan on maintaining the stent at least 4 weeks may be longer. The purpose of such a prolonged stent is to allow adequate healing. Prior to final removal of the stent I think it might make sense to reevaluate ureteroscopically to confirm adequate healing.
[2021-04-16] MEDS: fentaNYL 50 mcg/mL INJ 2mL IVP ×2 (14:45→14:52)
== END 2021-04-16 16:05 | disposition home or self-care (01) ==
PROVIDERS: PCP Internal Medicine; Visit Provider Urology
PROC: 0TJB8ZZ Inspection of Bladder, Via Natural or Artificial Opening Endoscopic (ICD-10-PCS; CPT 52000; principal; 2021-04-16 13:00)
PROC: (CPT 74420; 2021-04-16 13:00)
PROC: 0TJ98ZZ Inspection of Ureter, Via Natural or Artificial Opening Endoscopic (ICD-10-PCS; CPT 52351; 2021-04-16 13:00)
PROC: (CPT 50605; 2021-04-16 13:00)
DX: N13.5 Crossing vessel and stricture of ureter without hydronephrosis (principal); K21.9 Gastro-esophageal reflux disease without esophagitis; K90.0 Celiac disease; M06.9 Rheumatoid arthritis, unspecified; I10 Essential (primary) hypertension; Z82.49 Family history of ischemic heart disease and other diseases of the circulatory system; Z83.3 Family history of diabetes mellitus
CPT/HCPCS: 52332; 52344; 76000; 96374; 96375; C2625; J1100; J1200; J1956; J2405; J2704; J3010; J7030

== ENCOUNTER 2021-04-19 08:16 | Outpatient (CLI) | payer OTHER, SELFPAY ==
--- NOTE | 2021-04-19 08:22 | FL_ITS ---
WS: [id number] FL small bowel series* [id number] REASON FOR EXAM: CELIAC DISEASE FLUOROSCOPY TIME: 0 minutes FINDINGS: No abnormality of the small bowel is identified on the previous CT scan of 03/22/2021. After ingestion of barium meal, multiple abdominal images were obtained over time is a barium progres sed from stomach to colon. The duodenum and the jejunum demonstrate normal caliber and a normal mucosal fold pattern. No excess fluid. Terminal ileum demonstrates a normal caliber and normal mucosal fold pattern and no excess fluid. Incidentally noted are multiple clustered renal calculi. There is a right ureteral stent. There is ai r in the common bile duct and central intrahepatic radicles which was also demonstrated on a CT scan of 03/22/2021. FL/FL small bowel series* [id number] IMPRESSION: Normal small bowel.
== END 2021-04-19 08:17 | disposition home or self-care (01) ==
LOC: RAD 08:19
PROVIDERS: PCP Internal Medicine; Visit Provider Internal Medicine Gastroenterology
DX: K90.0 Celiac disease (principal); A04.8 Other specified bacterial intestinal infections; K92.9 Disease of digestive system, unspecified; M35.00 Sjogren syndrome, unspecified
CPT/HCPCS: 74250

== ENCOUNTER 2021-05-14 08:17 | Outpatient (CLI) | payer OTHER, SELFPAY ==
--- NOTE | 2021-05-14 08:23 | XR_ITS ---
WS: [id number] KUB, AP view, 05/14/2021 Clinical Data: RENAL STONES Comparison: KUB, 04/09/2021. Findings: No abnormal intraabdominal masses are seen. There is no dilatated small bowel or evidence of obstruct ion. There is a right ureteral stent. Bilateral renal calcifications are seen. There is a large amount of fecal material throughout the colon. XR/XR KUB [id number] Impression: 1. Right ureteral stent. 2. Bilateral renal calcifications.
== END 2021-05-14 08:18 | disposition home or self-care (01) ==
LOC: RAD 08:19
PROVIDERS: PCP Internal Medicine; Visit Provider Urology
DX: N20.0 Calculus of kidney (principal); Z96.0 Presence of urogenital implants; N28.89 Other specified disorders of kidney and ureter
CPT/HCPCS: 74018; 81003

== ENCOUNTER 2021-06-11 08:16 | Outpatient (CLI) | payer OTHER, SELFPAY ==
--- NOTE | 2021-06-11 08:15 | XR_ITS ---
WS: [id number] KUB, AP view, 06/11/2021 Clinical Data: BILATERAL RENAL STONES Comparison: KUB, 05/14/2021. Findings: No abnormal intraabdominal masses are seen. There is no dilatated small bowel or evidence of obstruct ion. The right ureteral stent remains in good position. The bilateral renal calcifications are again noted . There is a large amount of fecal material throughout the colon. There are clips in the right upper quadrant from a cholecystectomy. XR/XR KUB 10162 Impression: 1. Right ureteral stent unchanged. 2. Bilateral renal calcifications unchanged.
== END 2021-06-11 08:17 | disposition home or self-care (01) ==
PROVIDERS: PCP Internal Medicine; Visit Provider Urology
DX: N20.0 Calculus of kidney (principal); Z96.0 Presence of urogenital implants
CPT/HCPCS: 74018

== ENCOUNTER 2021-07-08 12:32 | Outpatient (CLI) | payer OTHER, SELFPAY | END 2021-07-08 12:33 | disposition home or self-care (01) | PROVIDERS: PCP Internal Medicine; Visit Provider Internal Medicine | DX: R23.2 Flushing (principal); R19.7 Diarrhea, unspecified; K90.0 Celiac disease | CPT/HCPCS: 36415; 86003 ==

== ENCOUNTER 2021-07-14 08:29 | Outpatient (CLI) | payer OTHER, SELFPAY ==
[2021-07-21 17:48] LABS: 24 Hour Urine Volume 2675 mL; 5-HIAA, 24 Hour Urine 4.3 mg/24 h (<=6.0)
== END 2021-07-14 08:30 | disposition home or self-care (01) ==
LOC: LAB 08:32
PROVIDERS: PCP Internal Medicine; Visit Provider Urology
DX: R23.2 Flushing (principal); K59.09 Other constipation
CPT/HCPCS: 83497

== ENCOUNTER → 2021-07-16 10:00 | Outpatient (BNVA) | payer OTHER, SELFPAY | PROVIDERS: PCP Internal Medicine; Visit Provider Obstetrics & Gynecology | DX: R30.0 Dysuria (principal) | CPT/HCPCS: 81000; 87086 ==

== ENCOUNTER 2021-08-27 09:10 | Outpatient (CLI) | payer OTHER, SELFPAY ==
--- NOTE | 2021-08-27 08:45 | US_ITS ---
WS: [id number] RENAL ULTRASOUND HISTORY: N13.30 - Unspecified hydronephrosis COMPARISON: CT 03/22/2021 and prior ultrasound 03/28/2016 TECHNIQUE: 2-D and color Doppler imaging of the kidney submitted. Right kidney: 9.8 cm x 5.1 cm x 4.8 cm. Low normal size kidney. The renal cortex is thinned and difficult to visualize due to increased echog enicity. There are multiple cystic masses throughout the RIGHT kidney. Some of these are lobulated an d some contain low-level echoes. These cystic masses have been described on prior imaging studies. No nobstructing calcification superior pole measures 2.0 cm. The renal pelvis does not appear dilated. L argest cyst in the mid kidney measures approximately 4.3 x 5.3 x 5.0 cm. Hydronephrosis was noted on a prior CT. On this ultrasound the pelvis does not appear dilated. Left kidney: 12.4 cm x 6.0 cm x 5.7 cm. Normal size kidney. There are multiple cysts within the LEFT kidney but these are smaller than the cy st within the RIGHT kidney. Largest cyst in the mid kidney measures approximately 3.0 x 2.4 x 2.2 cm. No hydronephrosis. Nonobstructing calcification in the mid kidney with a maximum diameter of 1.8 cm. There are additional stones within the renal pelvis. Aorta: Normal. Urinary Bladder: Only minimally distended urinary bladder. US/US renal BI* [id number] IMPRESSION: 1. Numerous bilateral renal cysts. Greater size and number of cysts in the RIG HT kidney. Very similar to prior studies. 2. No hydronephrosis within either kidney identified. 3. Bilateral renal calculi. Greater burden of calcification on the LEFT. 4. Mild increased echogenicity RIGHT kidney and thinning of the cortex. Early atrophy and medical renal disease suspected.
== END 2021-08-27 09:11 | disposition home or self-care (01) ==
PROVIDERS: PCP Internal Medicine; Visit Provider Urology
DX: N13.30 Unspecified hydronephrosis (principal); Q61.02 Congenital multiple renal cysts; N20.0 Calculus of kidney
CPT/HCPCS: 76770; 80048; 81003

== ENCOUNTER → 2021-09-14 18:12 | Outpatient (BNVA) | payer OTHER, SELFPAY | PROVIDERS: Visit Provider Emergency Medicine | DX: R68.89 Other general symptoms and signs (principal); J10.1 Influenza due to other identified influenza virus with other respiratory manifestations | CPT/HCPCS: 87400; 87880 ==

== ENCOUNTER 2021-09-23 07:48 | Outpatient (CLI) | payer OTHER, SELFPAY ==
--- NOTE | 2021-09-23 07:58 | NM_ITS ---
WS: [id number] NUCLEAR MEDICINE RENAL SCINTIGRAPHY INDICATION: RIGHT kidney hydronephrosis TECHNIQUE: Nuclear medicine renal scintigraphy with 12.6 mCi technetium 99m DTPA.. 20 mg Lasix admini stered at 10 minutes. FINDINGS: History of RIGHT ureteral stent with calculi removal. Comparison ultrasound August [address] March 22, 2021 Significantly delayed and diffusely persistent decreased perfusion RIGHT kidney. Persistent decreased activity in the RIGHT kidney throughout the duration of the examination. Administration of Lasix dem onstrates no significant effect on RIGHT kidney emptying. Estimated GFR RIGHT kidney 27.3 Estimated GFR LEFT kidney 94.3 NM/NM renal flow w pharm [id number] IMPRESSION: 1. Significantly delayed perfusion with decreased overall renal function RIGHT kidney likely due to chronic obstruction based on prior imaging findings. 2. Poor uptake throughout the RIGHT kidney throughout the duration of the exam ination. Lasix has no significant effect on RIGHT kidney emptying. 3. Normal function LEFT kidney.
== END 2021-09-23 07:49 | disposition home or self-care (01) ==
PROVIDERS: PCP Internal Medicine; Visit Provider Urology
DX: N13.5 Crossing vessel and stricture of ureter without hydronephrosis (principal)
CPT/HCPCS: 78708; A9539

== ENCOUNTER → 2021-10-01 08:27 | Outpatient (BNVA) | payer OTHER, SELFPAY | PROVIDERS: PCP Internal Medicine; Visit Provider Urology | DX: N13.30 Unspecified hydronephrosis (principal) | CPT/HCPCS: 81003 ==

== ENCOUNTER 2021-10-22 11:15 | Day surgery (SDC) | payer OTHER, SELFPAY ==
[2021-10-21 14:53] VITALS: BMI 27.8
--- NOTE | 2021-10-22 11:18 | SC_ITS ---
WS: [id number] C-arm fluoroscopy for right retrograde ureterogram, 10/22/2021 Clinical Data: Right ureteral stricture Comparison: None. Findings: Dr. Alvarado injected the right ureter and contrast material flowed into the right kidney. SC/C-arm FL for Urology Impression: Right retrograde ureterogram.
[2021-10-22] MEDS: sodium chloride 0.9% 1,000 ML 30 ML IV ×2 (11:58→13:25)
--- NOTE | 2021-10-22 12:45 | W.PM.OPSUD ---
Surgery/Procedure H&P Update DATE OF PROCEDURE: October 22, 2021 DATE H&P PERFORMED: 10/01/21 H&P UPDATE INFORMATION: I have reviewed H&P completed within last 30 days, I have examined patient prior to procedure, Changes to prior documentation as noted here and H&P is in [facility] EMR on date indicated CHANGES TO PREVIOUS DOCUMENTATION: No symptomatic change since visit. Her case has been reviewed with [facility] urology, Dr. Nagy. We discussed options and they included stenting and imaging for better delineation of the strictured area in order for surgical planning. No change in physical exam. Lungs are clear, heart is regular rate and rhythm, mental status is normal. Abdomen is soft. She does have some mild right-sided CVA tenderness. No contraindications to proceeding with surgery. PREOP DIAGNOSIS: Right ureteral stricture PLANNED PROCEDURE: Operation Date: 10/22/21 12:30 Proposed Procedures p Cystoscopy 49421 mod 26/81548/n13.5/n13.30(Not Applicable) - Curtis Alvarado MD s Retrograde Pyelogram(Right) - Curtis Alvarado MD s Ureteral Stent Placement(Right) - Curtis Alvarado MD
[2021-10-22] MEDS: levofloxacin-dextrose 5 % 500 MG/100 ML PREMIX 100 MG IV (12:52)
--- NOTE | 2021-10-22 13:09 | P.ANESASSM_ITS ---
Pre-Anesthetic Assessment Height/Weight: Height 1.7 m Weight 80.739 kg Preop Diagnosis: Right ureteral stricture Operation Date: 10/22/21 12:30 Proposed Procedures p Cystoscopy 33273 mod 26/99225/n13.5/n13.30(Not Applicable) - Curtis Alvarado MD s Retrograde Pyelogram(Right) - MD milad Prieto Ureteral Stent Placement(Right) - Curtis Alvarado MD Familial anesthetic complications: None Was Beta Aleksandar taken within 24 hours: N/A Was Clonidine taken within 24 hours: N/A Last intake: Intake Last Liquid Date 10/22/21 Last Liquid Time 08:00 Last Solid Date 10/21/21 Last Solid Time 20:00 Social No alcohol and No tobacco Exam alert, oriented x 3, clear to auscultation bilaterally and regular rate & rhythm Airway Submandibular: within normal limits Cervical ROM: within normal limits Mallampati: Class II Dentition: full CV/HEM Arrythmia and Hypertension GI Gastroesophageal Reflux Disease Musc/skel Rheumatoid Arthritis Sjorgen's, chronic steroid Neuropsych Headache Anesthetic Plan ASA status: 3 Anesthesia: General Other: PONV--TIVA Medications/Allergies Home Medications Medication Instructions Recorded Confirmed Last Taken Type ondansetron HCl 4 mg tablet 4 mg PO Q6H PRN #60 tab 06/01/20 10/21/21 04/15/21 Rx (Zofran) dicyclomine 10 mg capsule 10 mg PO QID PRN 06/22/20 10/22/21 04/15/21 History lorazepam 1 mg tablet (Ativan) 1 mg PO TID PRN 10/19/20 10/21/21 04/15/21 History pyridoxine (vitamin B6) 100 mg 100 mg PO DAILY tab 10/19/20 10/21/21 04/15/21 History tablet (Vitamin B-6) magnesium 200 mg tablet 400 mg PO DAILY tab 04/09/21 10/21/21 04/15/21 History mecobalamin (vitamin B12) 1,000 500 mcg PO DAILY tab 05/14/21 10/22/21 Unknown History mcg chewable tablet (B12 Active) polyethylene glycol 3350 17 17 g PO BID PRN 05/14/21 10/21/21 Unknown History gram/dose oral powder (Miralax) vortioxetine 5 mg tablet 10 mg PO DAILY tab 05/14/21 10/21/21 Unknown History (Trintellix) pantoprazole 40 mg tablet,delayed See Rx Instructions PO DAILY #90 08/11/21 10/21/21 Unknown Rx release tab prednisone 10 mg tablet 10 mg PO DAILY PRN #90 tab 08/11/21 10/21/21 Unknown Rx folic acid 1 mg tablet 1 mg PO DAILY #90 tab 08/17/21 10/21/21 Unknown Rx methotrexate sodium 2.5 mg tablet See Rx Instructions PO Q7D #30 tab 08/17/21 10/21/21 Unknown Rx valacyclovir 1 gram tablet 1,000 mg PO DAILY PRN #30 tab 09/22/21 10/21/21 Unknown Rx (Valtrex) ascorbic acid (vitamin C) 1,000 mg 1 g PO DAILY tab 10/01/21 10/21/21 Unknown History tablet cholecalciferol (vitamin D3) 50 50 mcg PO DAILY 10/01/21 10/21/21 Unknown History mcg (2,000 unit) capsule fluconazole 200 mg tablet 200 mg PO .WEEKLY PRN tab 10/20/21 10/21/21 Unknown History scopolamine base 1 mg over 3 days 1 patch TRANSDERMAL Q3D PRN #1 ea 10/21/21 10/21/21 10/21/21 Rx transdermal patch Allergies Allergy/AdvReac Type Severity Reaction Status Date / Time tetanus and diphtheria AdvReac Severe Cellulitis Verified 10/22/21 11:26 toxoids Current Medications Generic Name Dose Route Start Last Admin Trade Name Freq PRN Reason Stop Dose Admin Sodium Chloride 1,000 mls @ 30 mls/hr 10/22/21 11:30 10/22/21 11:58 Sodium Chloride 0.9% IV 10/23/21 11:29 30 mls/hr .Q24H JAMIL Administration PFSH Anesthesia Medical History (Updated 10/20/21 @ 08:22 by Norma Funez RN) Adult celiac disease Bilateral renal stones GERD (gastroesophageal reflux disease) High risk medication use HTN (hypertension) Hydronephrosis, right Immunization counseling Migraine headache with aura Myocardial bridge Nephrolithiasis Primary Sjogren's syndrome Rheumatoid factor positive Right ureteral stone 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 Dx: Cystocele, rectocele, HUMA. [place]. [place] [facility] [place]. History of esophagogastroduodenoscopy (EGD) (10/05/20) with sphincterotomy of sphincter of oddi. Performed in [place] S/P ACL repair (~1993) Open on Right S/P bilateral breast reduction (~03/2000) S/P cholecystectomy (~1996) Laparoscopic. [place] Dr. Burgess [place] [facility] [place] S/P cystoscopy with ureteral stent placement (03/06/10) S/P laparoscopic assisted vaginal hysterectomy (LAVH) (12/04/18) With LSO, RS, Anterior vaginal repair, Solyx SIS, cystoscopy. Dx: Incomplete uterovaginal prolapse, HUMA. Per[place] Dr. Card [place] [facility] [place]. S/P tubal ligation (06/01/12) LTF. Per[place] Dr. Card [place] [facility] [place]. Status post hysteroscopic ablation of endometrium (05/09/17) NovaSure. Dx: Menorrhagia. Per[place] Dr. Card [place] [facility] [place]. Family History (Updated 10/20/21 @ 08:25 by Norma Funez, LG) Father Hypertension Cancer prostate Grandmother Diabetes Maternal CAD (coronary artery disease) Maternal Stroke Maternal Chronic kidney disease (CKD) Maternal Daughter Diabetes Mother CAD (coronary artery disease) Arthritis Chronic kidney disease (CKD) Thyroid condition Grandfather CAD (coronary artery disease) Paternal Sister Asthma Migraine headache Diabetes Family/Other CAD (coronary artery disease) Maternal aunt Chronic kidney disease (CKD) Maternal aunt Denies family history of Colon cancer Ovarian cancer Breast cancer Uterine cancer Data Anesthesia Cardiac Studies: No Data to Display
[2021-10-22 13:25] VITALS: BP 115/58; PULSE 71; RESP 16; TEMP 36.9; O2SAT 100
[2021-10-22 13:30] VITALS: BP 114/65; PULSE 75; RESP 16; O2SAT 100
--- NOTE | 2021-10-22 13:33 | SUR.PHASEI ---
PATIENT ARRIVES INTO PACU ARROUSABLE BUT DROWSY. SHE HAS A SIMPLE MASK IN PLACE WITH O2 AT 6l AND SAT AT 100%. NO DRESSING PRESENT.
[2021-10-22 13:36] VITALS: BP 110/67; PULSE 69; RESP 14; O2SAT 98
--- NOTE | 2021-10-22 13:37 | PM.OP ---
Operative Report Date of procedure: October 22, 2021 Pre-op diagnosis: Right ureteral stricture Post-op diagnosis: Right ureteral stricture Procedure done: Cystoscopy, right retrograde ureteropyelogram with intraoperative interpretation exclusive of radiology Failed attempt at right ureteral stent placement Pathology: None Surgeon: Christiano Anesthesia: MAC (Total IV) Urine output: Not measured Complications: None Findings: Tight ureteral stricture at the crossing of the pelvic vessels. It appears that the total linear distance is about 2 cm to 3 cm in length. Unable to advance a guidewire past the stricture. Previously this had been an easy task. Video imaging and still shots obtained. Brief History: Norma is a very pleasant 45-year-old white female with a history of complex stone disease including bilateral MSK changes, multiple stone passages, multiple stone interventions. Further complicated by polycystic kidney disease of a lesser than severe variant. She was recently discovered to have progressive hydronephrosis and was discovered to have a ureteral stricture near the right pelvic vessels. She underwent cystoscopy dilation of the stricture and stent placement for an extended period of time. Did well. On surveillance though she was found to have persistent to increased hydronephrosis. It was decided to obtain better retrograde ureterogram imaging in preparation for consultation with [facility] as well as ureteral stent placement for decompression. She is admitted for that procedure. Procedure: After routine preoperative evaluation examination and obtaining of informed consent she was taken to the operating suite on 10/22/2021 where general anesthesia was administered without difficulty after appropriate timeout was performed, SCDs confirmed to be functioning, preoperative antibiotics administered, beta-yong protocol confirmed. Prepped and draped in the usual sterile fashion in dorsolithotomy position paying careful attention to avoiding pressure points. 21 Guatemalan cystoscope with 30 degree lens was introduced into the urethra meatus and advanced into the bladder to videoscopy. Bladder was normal. Right retrograde ureteropyelogram: 8 Guatemalan cone-tip catheter intubated to the right ureteral orifice and contrast was injected showing normal course and caliber of the distal ureter until the just below the level of the pelvic vessels where a distinct narrowing was encountered with some irregularity of the segment just proximal to that and then an additional narrowed area just distal to smooth-walled ureter that was dilated proximal to that. It appeared that the total distance of the strictured area involving all of the segments mentioned above was about 2 to 3 cm in length. Video imaging as well as still shots were taken. Flexible tip guidewire was then advanced up the right ureter but could not be easily manipulated beyond the narrowed area. A zip wire (Glidewire) was then passed with same result. The wire was curling back on itself. An open-ended ureteral catheter was advanced over the wire but this did not facilitate easy passage. The wire was removed and contrast was reinjected in several different angles of the C-arm were utilized for enhanced imaging At this point it was decided to not force the issue and try to get a wire through the area in anticipation of consultation with [facility] for repair. She was awakened in the operating room and returned to the recovery room in stable condition PLANS: 1. Anticipate discharge from outpatient surgery 2. Formal consultation with Dr. Nagy up in [place] with images transferred will be made 3. Discussed ureteroureterostomy, Boari flap, psoas hitch as possible surgical options available
[2021-10-22 13:40] VITALS: BP 117/75; PULSE 58; RESP 15; TEMP 36.2; O2SAT 98
--- NOTE | 2021-10-22 13:46 | ANE.PACU2 ---
Inpatient post-anesthesia follow up: Airway intact: Yes Vital signs: Temperature 98.5 F Pulse Rate 69 Respiratory Rate 14 Blood Pressure 110/67 Pulse Oximetry 98 Oxygen Delivery Me thod Room Air Oxygen Flow Rate 6 Fraction of Inspir ed Oxygen Hydration adequate: Yes Nausea and vomiting: No Pain level: 2 Mental status: Baseline
[2021-10-22 13:52] VITALS: BP 125/71; PULSE 65; RESP 16; TEMP 36.6; O2SAT 100
[2021-10-22 14:22] VITALS: BP 104/67; PULSE 50; RESP 18; TEMP 36.6; O2SAT 98
--- NOTE | 2021-10-23 | SCC_ITS ---
Procedure done: Cystoscopy, right retrograde ureteropyelogram with intraoperative interpretation exclusive of radiology Failed attempt at right ureteral stent placement 73.8 seconds of fluoroscopic guidance, for a cumulative dose of 26.66 mGy, was provided to Dr. Alvarado by the radiology department. C-arm images of the abdomen were saved for the patient's permanent record. [facility]
== END 2021-10-22 14:27 | disposition home or self-care (01) ==
PROVIDERS: PCP Internal Medicine; Visit Provider Urology
PROC: 0TJB8ZZ Inspection of Bladder, Via Natural or Artificial Opening Endoscopic (ICD-10-PCS; CPT 52000; principal; 2021-10-22 12:30)
PROC: (CPT 74420; 2021-10-22 12:30)
DX: N13.5 Crossing vessel and stricture of ureter without hydronephrosis (principal); I10 Essential (primary) hypertension; K21.9 Gastro-esophageal reflux disease without esophagitis; M06.9 Rheumatoid arthritis, unspecified; M35.00 Sjogren syndrome, unspecified; Z79.52 Long term (current) use of systemic steroids; Z82.49 Family history of ischemic heart disease and other diseases of the circulatory system
CPT/HCPCS: 52005; 76000; J1170; J1200; J1956; J2405; J2704; J3010; J7030

== ENCOUNTER → 2021-11-11 12:24 | Outpatient (BNVA) | payer OTHER, SELFPAY | PROVIDERS: PCP Internal Medicine; Visit Provider Internal Medicine Rheumatology | DX: M05.79 Rheumatoid arthritis with rheumatoid factor of multiple sites without organ or systems involvement (principal); Z79.899 Other long term (current) drug therapy | CPT/HCPCS: 80061; 82565; 85025; 86140 ==

== ENCOUNTER → 2021-11-16 09:09 | Outpatient (BNVA) | payer OTHER, SELFPAY | PROVIDERS: PCP Internal Medicine; Visit Provider Obstetrics & Gynecology | DX: M05.79 Rheumatoid arthritis with rheumatoid factor of multiple sites without organ or systems involvement (principal); Z79.899 Other long term (current) drug therapy | CPT/HCPCS: 80076 ==

== ENCOUNTER 2021-12-09 13:19 | Outpatient (CLI) | payer OTHER, SELFPAY ==
--- NOTE | 2021-12-09 13:36 | FL_ITS ---
WS: [id number] FLUOROSCOPIC GUIDED CYSTOGRAM INDICATION: Bladder and ureteral stricture repair TECHNIQUE: Fluoroscopic administration of 350 cc Cysto-Conray II via indwelling Velasquez catheter FINDINGS: Underlay Stitcher imaging demonstrates RIGHT double-J ureteral stent in place. Cholecystectomy clips. S everal RIGHT renal parenchymal calculi largest measuring 8 mm. Numerous clustered LEFT renal parenchy mal calculi. Surgical clips in the RIGHT pelvis. Tenting of the RIGHT superior lateral bladder along the RIGHT UVJ presumably due to recent ureteral s tricture repair with bladder flap. 350 cc contrast administered with distention of the bladder. Patie nt experienced minor discomfort. No evidence of active contrast leak. Reflux is visualized in the RIG HT ureter into the RIGHT renal collecting system along the indwelling double-J ureteral stent. Chroni c appearing RIGHT hydronephrosis appears similar to the prior studies. Postdrainage images demonstrates good decompression of the bladder with a small amount of residual co ntrast along the RIGHT inferior bladder. No evidence of contrast leak. FL/FL cystogram [id number] IMPRESSION: No evidence of bladder leak. Additional findings detailed above.
== END 2021-12-09 13:20 | disposition home or self-care (01) ==
PROVIDERS: PCP Internal Medicine; Visit Provider Urology
DX: N13.30 Unspecified hydronephrosis (principal)
CPT/HCPCS: 74430

== ENCOUNTER 2021-12-10 06:00 | Outpatient (CLI) | payer OTHER, SELFPAY | END 2021-12-10 06:01 | disposition home or self-care (01) | LOC: LAB 04-18 20:34 | PROVIDERS: Visit Provider Urology | DX: N13.30 Unspecified hydronephrosis (principal); R10.9 Unspecified abdominal pain | CPT/HCPCS: 81003; 87077; 87086; 87186 ==

== ENCOUNTER 2021-12-10 15:09 | Inpatient (IN) | payer OTHER, SELFPAY ==
[2021-12-10 15:18] VITALS: BP 131/94; PULSE 74; RESP 18; TEMP 36.7; O2SAT 98; BMI 27.7
--- NOTE | 2021-12-10 15:19 | CTR_ITS ---
PROCEDURE INFORMATION: Exam: CT Abdomen And Pelvis Without Contrast Exam date and time: 12/10/2021 3:39 PM Age: 46 years old Clinical indication: Prior surgery; Surgery type: Tubal ligation, ureteral reimplantation, marcie, cystocele, breast reduction; Patient HX: Flank pain, RT, cystogram yesterday, S/P cath removal pain TECHNIQUE: Imaging protocol: Computed tomography of the abdomen and pelvis without contrast. Radiation optimization: All CT scans at this facility use at least one of these dose optimization techniques: automated exposure control; mA and/or kV adjustment per patient size (includes targeted exams where dose is matched to clinical indication); or iterative reconstruction. COMPARISON: CT abdomen pelvis wo/w [id number] 03/22/2021 9:25 AM RADIATION DOSE METRICS: Total DLP (mGy-cm): 1544.7 FINDINGS: Tubes, catheters and devices: Interval placement of right nephroureteral stent with significant interval improvement of right hydronephrosis and hydroureter. The right UVJ appears to be in the anterior right aspect of the bladder compatible with provided history of ureteral reimplantation. There is minimal residual right pelviectasis. There is minimal right perinephric stranding with no significant collection. Several right simple renal cysts are noted, the largest is an exophytic cyst in the lower pole measuring 4.4 cm, similar to prior exam. Approximately 3-4 nonobstructing right renal calculi are noted, the largest measuring 9 x 5 mm similar to prior exam. No obvious calculi are noted along the right-sided stent a, UVJ region or bladder lumen. Diaphragm: Small hiatal hernia. Liver: See Spleen finding. Gallbladder and bile ducts: Cholecystectomy clips. There is mild pneumobilia and minimal intrahepatic bile duct dilatation, similar to prior exam, likely benign in the setting of prior cholecystectomy. No abnormal extrahepatic bile duct dilatation with distal CBD measuring about 5 mm. Pancreas: Normal. No ductal dilation. Spleen: Mild splenomegaly. Liver is normal in size with probable mild steatosis. No cirrhosis. Adrenal glands: Normal. No mass. Kidneys and ureters: The left kidney stable in appearance containing several nonobstructing calculi and clustered calculi, the largest cluster in the lower pole, measuring 12 by 10 mm. Interpolar left simple renal cyst measuring 2.4 cm along with several other hypodense lesions, too small to characterize. No hydronephrosis on the left. Stomach and bowel: Moderate amount of fecal retention. No obvious bowel dilatation, pneumatosis or suspicious bowel wall thickening however assessment is limited due to lack of contrast. Appendix: No evidence of appendicitis. Intraperitoneal space: No free air or drainable abscess. New small amount of pelvic ascites, nonspecific.. Vasculature: No abdominal aortic aneurysm. Lymph nodes: No enlarged lymph nodes. Urinary bladder: Urinary bladder is suboptimally assessed due to incomplete distention however there is probable nonspecific bladder wall thickening. This may be related to chronic hypertrophy and/or cystitis. Clinical correlation is needed. Reproductive: Absent uterus. No adnexal region masses. Bones/joints: Multilevel vertebral disc degeneration and endplate osteophytes. No acute osseous findings otherwise. Soft tissues: New, somewhat linear density with skin irregularity in the right anterior lower quadrant abdominal wall extending to the underlying abdominal wall musculature suggesting recent surgical/percutaneous procedure. A small low-density collection is noted in the deep subcutaneous region in the anterior right lower quadrant, measuring about 18 x 15 mm with little or no surrounding regional inflammatory response however clinical correlation follow-up should be obtained to exclude infected collection.. Other findings: . CT/CT kidney stone [id number] IMPRESSION: 1. Comparison CT 03/22/2021. Interval placement of right-sided nephroureteral stent with significant improvement of hydronephrosis. Status post right-sided distal ureteral reimplantation with the UVJ at the anterior superior aspect of bladder. Multiple bilateral nonobstructing calculi and renal cysts are again noted similar to prior exam. Probable mild bladder wall thickening. See discussion above. 2. New abdominal wall soft tissue findings and new small amount of pelvic ascites, nonspecific. 3. No acute abdominopelvic findings otherwise. Somewhat limited exam due to lack of contrast. COMMENTS: Consistent with the [employer]'s Incidental Findings Committee white paper (J Am Stevie Radiol 2018): Any incidental renal lesion less than 1 cm or classified as too small to characterize, or any incidental cystic renal lesion characterized as simple-appearing, is likely benign. No follow-up imaging is recommended for these lesions per consensus recommendations based on imaging criteria.
--- NOTE | 2021-12-10 15:20 | W.ED.ABDPA2 ---
HPI - Abdominal Pain General: Chief Complaint: Urogenital-Female Stated Complaint: FLANK PAIN Time Seen by Provider: 12/10/21 15:10 Source: patient Mode of arrival: ambulatory Limitations: no limitations History of Present Illness: 46-year-old female presents emergency room with complaints of right-sided flank pain. Patient had ureteral stricture which she had repaired at [place]. She has a stent in place and had a Velasquez removed yesterday. She has had slightly blood-tinged urine. She is states she feels like she has a renal stone on the right side she still has ureteral stent in place. She not had any fever sweats or chills. No other abdominal pain. MD elicited complaint: flank pain Pertinent past history: kidney stones and other (Ureteral stenosis) Onset (ago): hour(s) Pain Consistency: constant Location: R flank Severity: severe Quality: stabbing Radiation: none Exacerbating factors: nothing Relieving factors: nothing Associated Symptoms: Reports hematuria and nausea; Denies anorexia, belching, bloating, change in bowel habits, change in stool character, chills, coffee ground emesis, constipation, GI cramping, diarrhea, dyspepsia, dysuria, excessive flatus, fever(s), heartburn, hematochezia, hematemesis, fecal incontinence, loose stools, melena, poor appetite, syncope and vomiting Review of Systems Const: Reports: change in appetite; Denies: fever(s), chills, body aches, fatigue or malaise Card: Denies: chest pain or syncope Resp: Denies: dyspnea, productive cough or non-productive cough GI: Reports: abdominal pain and nausea; Denies: vomiting, hematemesis, coffee ground emesis, heartburn, diarrhea, constipation, bloating, GI cramping, belching, excessive flatus, fecal incontinence, change in bowel habits, change in stool character, hematochezia or melena : Reports: flank pain, difficulty voiding and hematuria; Denies: dysuria, urinary frequency or urinary urgency Skin/Breast: Denies: rash or pruritus PFSH ED PFSH: Medical History Adult celiac disease Diagnosed in 2019--has a radio electronics technician in [place].(Dr Turner and Dr. Roberto Hydronephrosis, right Migraine headache with aura Diagnosed in 2006 however has not had symptoms in years. She is not on any medication. Does not have a neurologist Mood changes 2018--currently on Trintellix Myocardial bridge Diagnosed in 2019 when she was undergoing evaluation for palpitation. Per patient this is asymptomatic and she is not on any medication. Sees ophthalmology surgical technician Dr. Fierro at [facility] as needed Nephrolithiasis No pertinent past medical history Denies diabetes, asthma, hypertension, seizures, DVT/PE PCP: Dr. Ballesteros Primary Sjogren's syndrome Diagnosed in 2012. Not on any medication. Managed by Dr. Vogt-rheumatology at [facility] [place]. 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 Dx: Cystocele, rectocele, HUMA. Performed by Dr. Card at [facility] [place] in [place], [place]. History of esophagogastroduodenoscopy (EGD) X 2 2018--[place] 2020-with sphincterotomy of sphincter of oddi. Performed in [place] S/P ACL repair (~1993) Open on Right S/P bilateral breast reduction (~03/2000) S/P cholecystectomy (~1996) Laparoscopic. Performed by Dr. Burgess at [facility] [place] in [place], [place] S/P cystoscopy with ureteral stent placement X 4 S/P laparoscopic assisted vaginal hysterectomy (LAVH) (12/04/18) With LSO, RS, Anterior vaginal repair, Solyx SIS, cystoscopy. Dx: Incomplete uterovaginal prolapse, HUMA. Performed by Dr. Card at [facility] [place] in [place], [place]. S/P tubal ligation (06/01/12) LTF. Performed by Dr. Card at [facility] [place] in [place], [place]. Status post hysteroscopic ablation of endometrium (05/09/17) NovaSure. Dx: Menorrhagia. Performed by Dr. Card at [facility] [place] in [place], [place]. Status post ureteral reimplantation Family History Father Hypertension Cancer prostate Grandmother Diabetes Maternal CAD (coronary artery disease) Maternal Stroke Maternal Chronic kidney disease (CKD) Maternal Daughter Diabetes Mother CAD (coronary artery disease) Arthritis Chronic kidney disease (CKD) Thyroid condition Grandfather CAD (coronary artery disease) Paternal Sister Asthma Migraine headache Diabetes Family/Other CAD (coronary artery disease) Maternal aunt Chronic kidney disease (CKD) Maternal aunt Denies family history of Colon cancer Ovarian cancer Breast cancer Uterine cancer Social History Smoking and tobacco status: never smoked Alcohol intake: never Marital status: Current occupational status: employed Physical Exam Const: GENERAL APPEARANCE: cooperative ORIENTATION/CONSCIOUSNESS: Yes awake, Yes oriented to person, Yes oriented to place and Yes oriented to time HENMT: COMMON NORMALS: normocephalic, atraumatic and hearing grossly normal bilaterally HEAD & SCALP: normocephalic and atraumatic Neck/C-Spine: COMMON NORMALS: no JVD Lymph: LYMPHATIC: no lymphadenopathy noted and no lymphedema noted Resp: COMMON NORMALS: normal respiratory effort, No retractions, No use of accessory muscles and clear to auscultation bilaterally AUSCULTATION: clear to auscultation bilaterally Cardio: COMMON NORMALS: no JVD, regular rate, regular rhythm and No murmurs present (Cardio) RATE: regular rate RHYTHM: regular rhythm GI: COMMON NORMALS: Soft to palpation and No hepatosplenomegaly present AUSCULTATION: Yes normoactive bowel sounds PALPATION: Yes Soft to palpation, No Tenderness to palpation present (GI), No Guarding due to palpation present (GI) and Yes No hepatosplenomegaly present Extremity: COMMON NORMALS: normal to inspection, capillary refill normal, no clubbing, cyanosis or edema, no calf tenderness and no pedal edema Neuro: SENSORIUM/ORIENTATION: Yes oriented to person, Yes oriented to place and Yes oriented to time Skin: COMMON NORMALS: no rashes or lesions noted GENERAL SKIN EXAM: no rashes or lesions noted Course Vital Signs: Vital signs: Vital Signs Temperature 98.0 F 12/10/21 15:18 Pulse Rate 66 12/10/21 15:26 Respiratory Rate 16 12/10/21 15:26 Blood Pressure 131/94 12/10/21 15:26 Pulse Oximetry 99 12/10/21 15:26 MDM - Abdominal Pain Medical Decision Making Patient was directed here from Dr. West's office Dr. Alvarado came to see the patient and has reviewed the CT and findings there is what looks like maybe a small hematoma adjacent to the psoas near where the psoas hitch was done to reanastomose the ureter he is going to admit the patient we have gotten blood cultures and start antibiotics orders written. Medical Records I reviewed the patient's medical records. Lab Data I reviewed the patient's lab results. : 12/10/21 15:35 12/10/21 15:35 Labs/Radiology: Radiology Impressions Abdomen/Pelvis CT 12/10/21 15:19 IMPRESSION: 1. Comparison CT 03/22/2021. Interval placement of right-sided nephroureteral stent with significant improvement of hydronephrosis. Status post right-sided distal ureteral reimplantation with the UVJ at the anterior superior aspect of bladder. Multiple bilateral nonobstructing calculi and renal cysts are again noted similar to prior exam. Probable mild bladder wall thickening. See discussion above. 2. New abdominal wall soft tissue findings and new small amount of pelvic ascites, nonspecific. 3. No acute abdominopelvic findings otherwise. Somewhat limited exam due to lack of contrast. COMMENTS: Consistent with the [employer]'s Incidental Findings Committee white paper (J Am Stevie Radiol 2018): Any incidental renal lesion less than 1 cm or classified as too small to characterize, or any incidental cystic renal lesion characterized as simple-appearing, is likely benign. No follow-up imaging is recommended for these lesions per consensus recommendations based on imaging criteria. Laboratory Results WBC 12.3 10^3/uL (4.0-10.0) H 12/10/21 15:35 RBC 5.35 10^6/uL (4.1-5.3) H 12/10/21 15:35 Hgb 16.1 g/dL (11.5-15.3) H 12/10/21 15:35 Hct 49.2 % (37.0-47.0) H 12/10/21 15:35 MCV 92.0 fl (81-99) 12/10/21 15:35 MCH 30.1 pg (28.0-34.0) 12/10/21 15:35 MCHC 32.7 g/dL (30.0-36.0) 12/10/21 15:35 RDW 14.3 % (12.1-15.1) 12/10/21 15:35 Plt Count 299 10^3/cmm (130-400) 12/10/21 15:35 MPV 10.6 fL (7.4-10.4) H 12/10/21 15:35 Neut % (Auto) 72.2 % 12/10/21 15:35 Lymph % (Auto) 14.8 % 12/10/21 15:35 [place] % (Auto) 5.3 % 12/10/21 15:35 Eos % (Auto) 6.0 % 12/10/21 15:35 Baso % (Auto) 0.6 % 12/10/21 15:35 Neut # (Auto) 8.87 10^3/uL (1.8-7.7) H 12/10/21 15:35 Lymph # (Auto) 1.8 10^3/uL (0.8-4.8) 12/10/21 15:35 [place] # (Auto) 0.7 10^3/uL (0.2-0.9) 12/10/21 15:35 Eos # (Auto) 0.7 10^3/uL (0.0-0.8) 12/10/21 15:35 Baso # (Auto) 0.1 10^3/uL (0.0-0.1) 12/10/21 15:35 Nucleated RBC % (auto) 0 % 12/10/21 15:35 Nucleated RBCs # 0.0 /100WBC 12/10/21 15:35 Sodium Cancelled 12/10/21 15:35 Potassium Cancelled 12/10/21 15:35 Chloride Cancelled 12/10/21 15:35 Carbon Dioxide Cancelled 12/10/21 15:35 Anion Gap Cancelled 12/10/21 15:35 BUN Cancelled 12/10/21 15:35 Creatinine Cancelled 12/10/21 15:35 GFR Calculation Cancelled 12/10/21 15:35 Glucose Cancelled 12/10/21 15:35 Calculated Osmolality Cancelled 12/10/21 15:35 Calcium Cancelled 12/10/21 15:35 Discharge Plan Discharge Patient Disposition: Admitted As Inpatient Clinical Impression: Pelvic hematoma, Ureteral stricture, right, Status post ureteral reimplantation, Right flank pain Condition: Stable Prescriptions: No Action dicyclomine 10 mg capsule 10 mg PO QID PRN (Reason: Pain) 0RF ondansetron HCl [Zofran] 4 mg tablet 4 mg PO Q6H PRN (Reason: Nausea) Qty: 60 0RF pyridoxine (vitamin B6) [Vitamin B-6] 100 mg tablet 100 mg PO DAILY 0RF lorazepam [Ativan] 1 mg tablet 1 mg PO TID PRN (Reason: Anxiety) 0RF B12 Active 1,000 mcg tablet,chewable 500 mcg PO DAILY 0RF magnesium 200 mg tablet 400 mg PO DAILY 0RF polyethylene glycol 3350 [Miralax] 17 gram/dose powder 17 g PO BID PRN (Reason: Constipation) 0RF cholecalciferol (vitamin D3) 50 mcg (2,000 unit) capsule 50 mcg PO DAILY 0RF ascorbic acid (vitamin C) 1,000 mg tablet 1 g PO DAILY 0RF fluconazole 200 mg tablet 200 mg PO .WEEKLY PRN (Reason: yeast infection) 0RF pantoprazole 40 mg tablet,delayed release (DR/EC) See Rx Instructions PO DAILY Qty: 90 1RF Rx Instructions: take in AM 30 minutes before meal PO daily; prednisone 10 mg tablet 10 mg PO DAILY PRN (Reason: for flares) Qty: 90 1RF tamsulosin 0.4 mg capsule 0.4 mg PO DAILY 0RF folic acid 1 mg tablet 1 mg PO DAILY Qty: 90 3RF methotrexate sodium 2.5 mg tablet See Rx Instructions PO Q7D Qty: 30 3RF Rx Instructions: take 6 tabs once weekly/every monday PO every 7 days; valacyclovir [Valtrex] 1 gram tablet 1,000 mg PO DAILY PRN (Reason: cold sores) Qty: 30 6RF scopolamine base 1 mg over 3 days patch 3 day 1 patch transdermal Q3D PRN (Reason: nausea and vomiting) Qty: 1 1RF Rx Instructions: apply 1-2 hours prior to surgery Trintellix 5 mg tablet 10 mg PO DAILY 0RF Referrals: Martha Ballesteros MD [Primary Care Provider] - Coding Level of Care Code ED Air Traffic Coordinator for Chg Fwd Exam Comprehensive
[2021-12-10 15:26] VITALS: BP 131/94; PULSE 66; RESP 16; O2SAT 99
[2021-12-10] MEDS: ondansetron 2 mg/ML SDV 2 mL 4 MG IVP ×2 (15:31→22:12)
[2021-12-10] MEDS: HYDROmorphone 1 mg/mL INJ 1 mL IVP (15:31)
[2021-12-10 15:43] LABS: Basophils # 0.1 10^3/uL (0.0-0.1); Basophils % 0.6 %; Eosinophils # 0.7 10^3/uL (0.0-0.8); Hematocrit 49.2 % (37.0-47.0); Hemoglobin 16.1 g/dL (11.5-15.3); Lymphocytes # 1.8 10^3/uL (0.8-4.8); Lymphocytes % 14.8 %; Mean Corpuscular HGB Conc 32.7 g/dL (30.0-36.0); Mean Corpuscular Hemoglobin 30.1 pg (28.0-34.0); Mean Platelet Volume 10.6 fL (7.4-10.4); Monocytes # 0.7 10^3/uL (0.2-0.9); Monocytes % 5.3 %; Neutrophils # 8.87 10^3/uL (1.8-7.7); Neutrophils % 72.2 %; Nucleated Red Blood Cells % 0 %; Platelet Count 299 10^3/cmm (130-400); Red Blood Count 5.35 10^6/uL (4.1-5.3); Red Cell Distribution Width 14.3 % (12.1-15.1); White Blood Count 12.3 10^3/uL (4.0-10.0)
[2021-12-10] MEDS: sodium chloride 0.9% 1,000 ML 999 ML IV (16:02)
--- NOTE | 2021-12-10 16:05 | P.HP_ITS ---
Providers/Chief Complaint Admitting Physician: Christiano Primary Care Provider: Martha Ballesteros MD Chief Complaint: FLANK PAIN History of Present Illness Norma Rodriguez is a 46 year old female well-known to me for history of multiple episodes of urolithiasis and right ureteral stricture developing post retained right ureteral stone. Attempts at conservative management of the stricture unsuccessful and ultimately she underwent a psoas hitch with ureteral reimplantation about 2 and half weeks ago at the [facility]. Postoperatively she did well. Cystogram yesterday showed no evidence of extravasation and a Velasquez catheter was removed. She voided well postoperatively with no retention symptoms. Last night she woke up with a full bladder and voided and developed fairly acute onset of right ureteral colicky type symptoms extending from the right flank down to her right lower quadrant. Had some nausea associated with that. Pain was poorly responsive to oral narcotics. Today she called the clinic with persistence of pain. No fever or chills. We called her into the clinic and did a bladder scan that showed that she was emptying adequately. A CT scan of the abdomen through the emergency department demonstrated no significant right hydronephrosis, stent in good position, and what appeared to be a small (2 x 3 cm) hematoma just medial to the psoas muscle near the psoas hitch attachment site. There is no clear evidence of a significant urinoma. Differential diagnosis of the area in question would potentially include urinoma versus hematoma though. White count was 12.3. Because of the refractory nature of her pain it was decided to admit for observation status. We discussed placement of the catheter to see if that would relieve her pain but she wanted to try without first. Will perform serial labs. Potentially place Velasquez catheter for refractory pain. Reviewed in detail with patient and Yuri. Review of Systems Const: Denies: fever(s), chills or malaise Eyes: Denies: yellow eyes ENMT: Denies: hoarseness Card: Denies: orthopnea Resp: Denies: wheezing : Reports: flank pain and dysuria (Some bladder spasm type symptoms.) Neuro: Denies: confusion, Slurred speech present or seizure-like activity Eric/Lymph: Denies: easy bleeding All/Imm: Denies: acute wheezing Medications/Allergies Home Medications Medication Instructions Recorded Confirmed Last Taken Type ondansetron HCl 4 mg tablet 4 mg PO Q6H PRN #60 tab 06/01/20 12/10/21 04/15/21 Rx (Zofran) dicyclomine 10 mg capsule 10 mg PO QID PRN 06/22/20 12/10/21 04/15/21 History lorazepam 1 mg tablet (Ativan) 1 mg PO TID PRN 10/19/20 12/10/21 04/15/21 History pyridoxine (vitamin B6) 100 mg 100 mg PO DAILY tab 10/19/20 12/10/21 04/15/21 History tablet (Vitamin B-6) magnesium 200 mg tablet 400 mg PO DAILY tab 04/09/21 12/10/21 04/15/21 History mecobalamin (vitamin B12) 1,000 500 mcg PO DAILY tab 05/14/21 12/10/21 Unknown History mcg chewable tablet (B12 Active) polyethylene glycol 3350 17 17 g PO BID PRN 05/14/21 12/10/21 Unknown History gram/dose oral powder (Miralax) vortioxetine 5 mg tablet 10 mg PO DAILY tab 05/14/21 12/10/21 Unknown History (Trintellix) pantoprazole 40 mg tablet,delayed See Rx Instructions PO DAILY #90 08/11/21 12/10/21 Unknown Rx release tab prednisone 10 mg tablet 10 mg PO DAILY PRN #90 tab 08/11/21 12/10/21 Unknown Rx folic acid 1 mg tablet 1 mg PO DAILY #90 tab 08/17/21 12/10/21 Unknown Rx methotrexate sodium 2.5 mg tablet See Rx Instructions PO Q7D #30 tab 08/17/21 12/10/21 Unknown Rx valacyclovir 1 gram tablet 1,000 mg PO DAILY PRN #30 tab 09/22/21 12/10/21 Unknown Rx (Valtrex) ascorbic acid (vitamin C) 1,000 mg 1 g PO DAILY tab 10/01/21 12/10/21 Unknown History tablet cholecalciferol (vitamin D3) 50 50 mcg PO DAILY 10/01/21 12/10/21 Unknown Histo ry mcg (2,000 unit) capsule fluconazole 200 mg tablet 200 mg PO .WEEKLY PRN tab 10/20/21 12/10/21 Unknown History scopolamine base 1 mg over 3 days 1 patch TRANSDERMAL Q3D PRN #1 ea 10/21/21 12/10/21 10/21/21 Rx transdermal patch tamsulosin 0.4 mg capsule 0.4 mg PO DAILY 12/09/21 12/10/21 Unknown History Allergies Allergy/AdvReac Type Severity Reaction Status Date / Time tetanus and diphtheria AdvReac Severe Cellulitis Verified 12/10/21 13:39 toxoids PFSH Acute PFSH: Medical History Adult celiac disease Diagnosed in 2019--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 Mejia Hydronephrosis, right Migraine headache with aura Diagnosed in 2006 however has not had symptoms in years. She is not on any medication. Does not have a neurologist Mood changes 2018--currently on Trintellix Myocardial bridge Diagnosed in 2019 when she was undergoing evaluation for palpitation. Per patient this is asymptomatic and she is not on any medication. Sees cardio logist Dr. Fierro at [facility] as needed Nephrolithiasis No pertinent past medical history Denies diabetes, asthma, hypertension, seizures, DVT/PE PCP: Dr. Ballesteros Primary Sjogren's syndrome Diagnosed in 2012. Not on any medication. [place]og[place] [facility] [place] 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 Dx: Cystocele, rectocele, HUMA. [place] [facility] [place]. History of esophagogastroduodenoscopy (EGD) X 2 2018--[place] 2019-with sphincterotomy of sphincter of oddi. Performed in [place] S/P ACL repair (~1993) Open on Right S/P bilateral breast reduction (~03/2000) S/P cholecystectomy (~1996) Laparoscopic. [place] Burg[place] [facility] [place] S/P cystoscopy with ureteral stent placement X 4 S/P laparoscopic assisted vaginal hysterectomy (LAVH) (12/04/18) With LSO, RS, Anterior vaginal repair, Solyx SIS, cystoscopy. Dx: Incomplete uterovaginal prolapse, HUMA. Per[place]. Card [place] [facility] [place]. S/P tubal ligation (06/01/12) LTF. [place]. Card [place] [facility] [place]. Status post hysteroscopic ablation of endometrium (05/09/17) NovaSure. Dx: Menorrhagia. [place]. Card [place] [facility] [place]. Status post ureteral reimplantation Family History Father Hypertension Cancer prostate Grandmother Diabetes Maternal CAD (coronary artery disease) Maternal Stroke Maternal Chronic kidney disease (CKD) Maternal Daughter Diabetes Mother CAD (coronary artery disease) Arthritis Chronic kidney disease (CKD) Thyroid condition Grandfather CAD (coronary artery disease) Paternal Sister Asthma Migraine headache Diabetes Family/Other CAD (coronary artery disease) Maternal aunt Chronic kidney disease (CKD) Maternal aunt Denies family history of Colon cancer Ovarian cancer Breast cancer Uterine cancer Social History Smoking and tobacco status: never smoked Alcohol intake: never Marital status: Current occupational status: employed Vitals/I&O/Wt Last Vital Signs Temp 98.0 F 12/10/21 15:18 Pulse 66 12/10/21 15:26 Resp 16 12/10/21 15:26 BP 131/94 12/10/21 15:26 Pulse Ox 99 12/10/21 15:26 Weight last 48 hrs Weight 177 lb Physical Exam Const: COMMON NORMALS: alert and well nourished GENERAL APPEARANCE: well kempt and well developed ORIENTATION/CONSCIOUSNESS: not confused Resp: COMMON NORMALS: normal respiratory effort EFFORT & INSPECTION: No labored and No Actively coughing GI: OTHER: Abdomen is soft. There are some tenderness in the right CVA area and right lower quadrant. No palpable mass. Has some mild separation of her wound. No evidence of active infection cellulitis etc. : OTHER: Bladder is nondistended. Back/Pelvis: OTHER: Right CVA tenderness. Mild now Neuro: SENSORIUM/ORIENTATION: Yes alert Psych: COMMON NORMALS: mental status grossly normal APPEARANCE: Yes grossly normal and Yes well kempt ATTITUDE: Yes calm and Yes engaged Skin: COMMON NORMALS: no rashes or lesions noted and no jaundice Data : 12/10/21 15:35 12/10/21 15:35 A&P Assessment and plan (1) Status post ureteral reimplantation: Status post psoas hitch with right ureteral reimplantation. Technically the procedure went well. Status: Acute (2) Right flank pain: Right flank and right lower abdominal pain consistent with renal colic without clear evidence of obstruction of the stent but clinically it appears to be more likely that then structural disruption of her repair. Status: Acute (3) Primary Sjogren's syndrome: Status: Acute (4) Gluten enteropathy: Status: Acute (5) Bilateral renal stones: Chronic medullary sponge kidney Status: Chronic (6) Polycystic kidney disease: Status: Acute (7) Pelvic hematoma: Appears to be not acute and probably related to immediate postop event. It is not large. Probably coincidental finding. Status: Acute Plan 1. Admit for pain control hydration IV antibiotics serial labs. 2. Place catheter for increasing symptoms. 3. Consider reimaging for worsening of symptoms. Attestations Medical Necessity Statement*: Refractory pain status post psoas hitch and ureteral reimplantation with stent placement. Mildly elevated white count. Admit for IV antibiotics symptomatic control serial labs possible serial tavo ging. Coding Level of Care Code Acute Inspector Tool for Chg Fwd Diagnoses Status post ureteral reimplantation Z98.890 Right flank pain R10.9 Primary Sjogren's syndrome M35.00 Gluten enteropathy K90.41 Bilateral renal stones N20.0 Polycystic kidney disease Q61.3 Pelvic hematoma
[2021-12-10 16:39] LABS: Add Urine Microscopic? YES; Bilirubin Urine Neg (Negative); Blood Urine 3+ (Negative); Glucose Urine UA Norm (Normal); Ketones Urine Negative (Negative); Leukocyte Esterase Urine 2+ (Negative); Nitrate Urine Positive (Negative); Protein Urine 1+ (Negative); Urine Appearance Cloudy (CLEAR); Urine Color Yellow (Yellow); Urobilinogen Urine Norm (Negative); pH Urine 6.5 (5-7)
[2021-12-10] MEDS: HYDROmorphone 1 mg/mL INJ 1 mL 0.5 MG IVP (16:46)
[2021-12-10] MEDS: cefTRIAXone 1,000 MG in sodium chloride 0.9% (plus) 50 ML 100 MG IV (16:53)
[2021-12-10 16:57] LABS: RBC Urine 50-80 /hpf (0-2); Squamous Epithelial Cell Urine 0-4 /hpf (0-5); WBC Urine 25-40 /hpf (0-5)
[2021-12-10 16:58] LABS: Add Urine Culture? Yes; Bacteria Urine 2+ /hpf
[2021-12-10 17:34] LABS: Anion Gap 17.3 (5-19); Blood Urea Nitrogen 9 mg/dL (6-20); Calcium 8.7 mg/dL (8.5-10.5); Carbon Dioxide 22 mmol/L (22-29); Chloride 103 mmol/L (98-107); Glomerular Filtration Rate 77.2 mL/min (90-130); Glucose 100 mg/dL (65-115); Osmolality Calculated 285 mOsm/kg (285-295); Potassium 4.3 mmol/L (3.5-5.1); Sodium 138 mmol/L (136-145)
[2021-12-10 17:59] VITALS: BP 131/94; PULSE 66; RESP 16; O2SAT 99
[2021-12-10] MEDS: D5-NS 0.45% + KCL 20 mEq 20 MEQ/1,000 ML BAG 125 MEQ IV (18:07)
[2021-12-10 18:15] VITALS: BP 112/68; PULSE 67; RESP 18; O2SAT 96
[2021-12-10 20:00] VITALS: BP 124/85; PULSE 60; RESP 18; TEMP 36.4; O2SAT 99
[2021-12-11] VITALS: BP 104/66; PULSE 64; RESP 17; TEMP 37; O2SAT 99
[2021-12-11] MEDS: D5-NS 0.45% + KCL 20 mEq 20 MEQ/1,000 ML BAG 125 MEQ IV (01:38)
[2021-12-11 04:00] VITALS: BP 96/59; PULSE 64; RESP 17; TEMP 36.8; O2SAT 97
[2021-12-11 04:18] LABS: Basophils # 0.1 10^3/uL (0.0-0.1); Basophils % 0.7 %; Eosinophils # 0.8 10^3/uL (0.0-0.8); Eosinophils % 9.1 %; Hematocrit 39.4 % (37.0-47.0); Hemoglobin 12.8 g/dL (11.5-15.3); Lymphocytes # 1.5 10^3/uL (0.8-4.8); Lymphocytes % 18.4 %; Mean Corpuscular HGB Conc 32.5 g/dL (30.0-36.0); Mean Corpuscular Hemoglobin 30.3 pg (28.0-34.0); Mean Corpuscular Volume 93.1 fl (81-99); Mean Platelet Volume 11.1 fL (7.4-10.4); Monocytes # 0.6 10^3/uL (0.2-0.9); Monocytes % 7.2 %; Neutrophils # 5.36 10^3/uL (1.8-7.7); Nucleated Red Blood Cells % 0 %; Platelet Count 247 10^3/cmm (130-400); Red Blood Count 4.23 10^6/uL (4.1-5.3); Red Cell Distribution Width 14.1 % (12.1-15.1); White Blood Count 8.4 10^3/uL (4.0-10.0)
[2021-12-11 04:39] LABS: Albumin Level 3.4 g/dL (3.5-5.2); Alkaline Phosphatase 81 IU/L (35-105); Blood Urea Nitrogen 7 mg/dL (6-20); Calcium 8.3 mg/dL (8.5-10.5); Carbon Dioxide 21 mmol/L (22-29); Chloride 107 mmol/L (98-107); Glomerular Filtration Rate 90.1 mL/min (90-130); Glucose 104 mg/dL (65-115); Osmolality Calculated 284 mOsm/kg (285-295); Sodium 138 mmol/L (136-145); Total Bilirubin 0.7 mg/dL (0.15-1.2); Total Protein 6.4 g/dL (6.6-8.7)
[2021-12-11 04:47] LABS: Alanine Aminotransferase 21 U/L (0-33); Anion Gap 14.6 (5-19); Aspartate Amino Transferase 44 U/L (0-32); Potassium 4.6 mmol/L (3.5-5.1)
--- NOTE | 2021-12-11 07:45 | P.DS_ITS ---
Discharge Providers Date of Admission: 12/10/21 16:08 Date of Discharge: December 11, 2021 Attending Provider at Admission: Curtis Alvarado MD Attending Provider at Discharge: Curtis Alvarado MD Primary Care Provider: Martha Ballesteros MD Diagnoses at Discharge Discharge Diagnosis (1) Right flank pain: Details from hospital stay: Pain improved with medical therapy alone. CT scan confirm no catastrophic intra-abdominal process. Final assessment likely related to stent partial occlusion etc. Status: Acute (2) Status post ureteral reimplantation: Status: Acute (3) Primary Sjogren's syndrome: Status: Acute Permanent problem details: Diagnosed in 2012. Not on any medication. Managed by Dr. Vogt- [place]ology at [facility] [place] Does take fluconazole for thrush as needed (4) Gluten enteropathy: Status: Acute (5) Bilateral renal stones: Status: Chronic (6) Polycystic kidney disease: Status: Acute (7) Pelvic hematoma: Status: Acute Reason for Visit Reason for Visit: FLANK PAIN Brief History: Norma is a very pleasant 46-year-old white female with a history of ureteral stricture secondary to chronically impacted right ureteral calculi. She failed conservative management of the stricture with dilation and stenting and ultimately underwent psoas hitch with ureteral reimplantation at the [facility] on 11/24/2021. Procedure went well. Cystogram revealed no evidence of extravasation in roughly 2 weeks and the Velasquez catheter was removed in my office. She voided well without problems. On the night of the catheter removal she woke up and voided and developed increasingly significant renal colicky type symptoms. The pain was not very responsive to pain medication of appropriate dosing. Presented to the clinic on the following day with increasing pain. A CT scan was performed to rule out significant structural problems related to her repair and the only finding of any consequence was a small hematoma near the psoas connection. No evidence of extravasation. Findings consistent with postoperative changes of little clinical significance. Hospital Course Hospital Course She was admitted from the emergency department on inpatient basis for pain control. It was anticipated that she would spend at least 2 nights in the hospital. Pain was aggressively treated and she responded well. She was hydrated and started on antibiotics. White count was initially elevated at 12.3 on admission. On hospital day #2 white count had normalized at 8.4. No other glaring abnormalities on her lab work. By the morning of hospital day #2 she was doing much better. Pain was well controlled and she was no longer requiring any pain medication. She was felt to be a good candidate for further convalescence at home. Return of bowel function normalcy. Improvement was more than expected at admission to inpatient status and therefore she was discharged earlier than expected. Plan was to continue antibiotics with cefuroxime 500 mg twice daily for 10 days, prescription for Dilaudid for breakthrough pain, and follow-up as scheduled. The plan is to remove her ureteral stent about 6 weeks postoperatively. I encouraged her to call if she had questions or concerns. Physical Exam Narrative: Alert oriented no acute distress, marked improvement from last night Pleasant cooperative throughout exam No labored respiration. No audible wheezing Good range of motion of extremities. Discharge Data Studies Completed and Pending Completed Studies During Hospitalization Category Date Time Status CT kidney stone [id number] Stat Cat Scan 12/10/21 15:19 Completed Pending at discharge Category Date Time Status Blood Culture Stat Lab 12/10/21 16:38 Results Urine Culture Stat Lab 12/10/21 16:14 Received Radiology Impressions Abdomen/Pelvis CT 12/10/21 15:19 IMPRESSION: 1. Comparison CT 03/22/2021. Interval placement of right-sided nephroureteral stent with significant improvement of hydronephrosis. Status post right-sided distal ureteral reimplantation with the UVJ at the anterior superior aspect of bladder. Multiple bilateral nonobstructing calculi and renal cysts are again noted similar to prior exam. Probable mild bladder wall thickening. See discussion above. 2. New abdominal wall soft tissue findings and new small amount of pelvic ascites, nonspecific. 3. No acute abdominopelvic findings otherwise. Somewhat limited exam due to lack of contrast. COMMENTS: Consistent with the [employer]'s Incidental Findings Committee white paper (J Am Stevie Radiol 2018): Any incidental renal lesion less than 1 cm or classified as too small to characterize, or any incidental cystic renal lesion characterized as simple-appearing, is likely benign. No follow-up imaging is recommended for these lesions per consensus recommendations based on imaging criteria. Laboratory Results WBC 8.4 10^3/uL (4.0-10.0) 12/11/21 03:55 RBC 4.23 10^6/uL (4.1-5.3) 12/11/21 03:55 Hgb 12.8 g/dL (11.5-15.3) 12/11/21 03:55 Hct 39.4 % (37.0-47.0) 12/11/21 03:55 MCV 93.1 fl (81-99) 12/11/21 03:55 MCH 30.3 pg (28.0-34.0) 12/11/21 03:55 MCHC 32.5 g/dL (30.0-36.0) 12/11/21 03:55 RDW 14.1 % (12.1-15.1) 12/11/21 03:55 Plt Count 247 10^3/cmm (130-400) 12/11/21 03:55 MPV 11.1 fL (7.4-10.4) H 12/11/21 03:55 Neut % (Auto) 64.0 % 12/11/21 03:55 Lymph % (Auto) 18.4 % 12/11/21 03:55 Jessamine % (Auto) 7.2 % 12/11/21 03:55 Eos % (Auto) 9.1 % 12/11/21 03:55 Baso % (Auto) 0.7 % 12/11/21 03:55 Neut # (Auto) 5.36 10^3/uL (1.8-7.7) 12/11/21 03:55 Lymph # (Auto) 1.5 10^3/uL (0.8-4.8) 12/11/21 03:55 Jessamine # (Auto) 0.6 10^3/uL (0.2-0.9) 12/11/21 03:55 Eos # (Auto) 0.8 10^3/uL (0.0-0.8) 12/11/21 03:55 Baso # (Auto) 0.1 10^3/uL (0.0-0.1) 12/11/21 03:55 Nucleated RBC % (auto) 0 % 12/11/21 03:55 Nucleated RBCs # 0.0 /100WBC 12/11/21 03:55 Sodium 138 mmol/L (136-145) 12/11/21 03:55 Potassium 4.6 mmol/L (3.5-5.1) 12/11/21 03:55 Chloride 107 mmol/L (98-107) 12/11/21 03:55 Carbon Dioxide 21 mmol/L (22-29) L 12/11/21 03:55 Anion Gap 14.6 (5-19) 12/11/21 03:55 BUN 7 mg/dL (6-20) 12/11/21 03:55 Creatinine 0.7 mg/dL (0.5-0.9) 12/11/21 03:55 GFR Calculation 90.1 mL/min (90-130) 12/11/21 03:55 Glucose 104 mg/dL (65-115) 12/11/21 03:55 Calculated Osmolality 284 mOsm/kg (285-295) L 12/11/21 03:55 Calcium 8.3 mg/dL (8.5-10.5) L 12/11/21 03:55 Total Bilirubin 0.7 mg/dL (0.15-1.2) 12/11/21 03:55 AST 44 U/L (0-32) H 12/11/21 03:55 ALT 21 U/L (0-33) 12/11/21 03:55 Alkaline Phosphatase 81 IU/L (35-105) 12/11/21 03:55 Total Protein 6.4 g/dL (6.6-8.7) L 12/11/21 03:55 Albumin 3.4 g/dL (3.5-5.2) L 12/11/21 03:55 Globulin 3.0 g/dL (1.3-4.6) 12/11/21 03:55 Urine Color Yellow (Yellow) 12/10/21 16:14 Urine Appearance Cloudy (CLEAR) 12/10/21 16:14 Urine pH 6.5 (5-7) 12/10/21 16:14 Ur Specific Manti 1.010 (1.005-1.030) 12/10/21 16:14 Urine Protein 1+ (Negative) H 12/10/21 16:14 Urine Glucose (UA) Norm (Normal) 12/10/21 16:14 Urine Ketones Negative (Negative) 12/10/21 16:14 Urine Blood 3+ (Negative) H 12/10/21 16:14 Urine Nitrate Positive (Negative) H 12/10/21 16:14 Urine Bilirubin Neg (Negative) 12/10/21 16:14 Urine Urobilinogen Norm mg/dL (Negative) 12/10/21 16:14 Ur Leukocyte Esterase 2+ (Negative) H 12/10/21 16:14 Urine RBC 50-80 /hpf (0-2) H 12/10/21 16:14 Urine WBC 25-40 /hpf (0-5) H 12/10/21 16:14 Ur Squamous Epith Cells 0-4 /hpf (0-5) H 12/10/21 16:14 Amorphous Sediment Not Reportable 12/10/21 16:14 Urine Bacteria 2+ /hpf (NONE) H 12/10/21 16:14 Additional Data from Hospital Stay CT scan did show a small hematoma near the psoas hitch connection. The other findings mentioned in the CT scan report are consistent with uneventful postoperative changes. Vitals Last Vital Signs Temp 98.3 F 12/11/21 04:00 Pulse 64 12/11/21 04:00 Resp 17 12/11/21 04:00 BP 96/59 12/11/21 04:00 Pulse Ox 97 12/11/21 04:00 Discharge Plan Discharge Patient Disposition: Home Condition: Stable Prescriptions: New hydromorphone 4 mg tablet 4 mg PO Q6H PRN (Reason: pain) Qty: 12 0RF cefuroxime axetil 500 mg tablet 500 mg PO BID 10 Days Qty: 20 0RF Continued dicyclomine 10 mg capsule 10 mg PO QID PRN (Reason: Pain) 0RF ondansetron HCl [Zofran] 4 mg tablet 4 mg PO Q6H PRN (Reason: Nausea) Qty: 60 0RF pyridoxine (vitamin B6) [Vitamin B-6] 100 mg tablet 100 mg PO DAILY 0RF lorazepam [Ativan] 1 mg tablet 1 mg PO TID PRN (Reason: Anxiety) 0RF B12 Active 1,000 mcg tablet,chewable 500 mcg PO DAILY 0RF magnesium 200 mg tablet 400 mg PO DAILY 0RF polyethylene glycol 3350 [Miralax] 17 gram/dose powder 17 g PO BID PRN (Reason: Constipation) 0RF cholecalciferol (vitamin D3) 50 mcg (2,000 unit) capsule 50 mcg PO DAILY 0RF ascorbic acid (vitamin C) 1,000 mg tablet 1 g PO DAILY 0RF fluconazole 200 mg tablet 200 mg PO .WEEKLY PRN (Reason: yeast infection) 0RF prednisone 10 mg tablet 10 mg PO DAILY PRN (Reason: for flares) Qty: 90 1RF tamsulosin 0.4 mg capsule 0.4 mg PO DAILY 0RF folic acid 1 mg tablet 1 mg PO DAILY Qty: 90 3RF methotrexate sodium 2.5 mg tablet See Rx Instructions PO Q7D Qty: 30 3RF Rx Instructions: take 6 tabs once weekly/every monday PO every 7 days; valacyclovir [Valtrex] 1 gram tablet 1,000 mg PO DAILY PRN (Reason: cold sores) Qty: 30 6RF Trintellix 5 mg tablet 10 mg PO DAILY 0RF cyclobenzaprine 5 mg tablet 5 mg PO TID PRN (Reason: Muscle Spasm) 0RF pantoprazole 40 mg tablet,delayed release (DR/EC) 40 mg PO DAILY 0RF Discontinued oxycodone 5 mg tablet 5 mg PO Q6H PRN (Reason: Pain) 0RF Discharge Orders: Discharge Order (Routine); Ordered 12/11/21 Ordered By: Curtis Alvarado Referrals: Martha Ballesteros MD [Primary Care Provider] - Discharge Diet: Advance as tolerated Discharge Activity: Limit activity as instructed Patient Instructions: Opioid Safety Activity Restrictions/Additional Instructions: Keep appointment as scheduled. Please call if you have any concerns or questions Cell number: [phone] Discharge Attestations Time Spent in Discharge Care*: less than 30 min Quality Metrics Clinical Quality Measures [ No reported AMI, CVA or VTE this stay] Coding Level of Care Code Acute Chg FW DC note Diagnoses Status post ureteral reimplantation Z98.890 Right flank pain R10.9 Primary Sjogren's syndrome M35.00 Gluten enteropathy K90.41 Bilateral renal stones N20.0 Polycystic kidney disease Q61.3 Pelvic hematoma
[2021-12-11 07:55] VITALS: BP 109/68; PULSE 62; RESP 16; TEMP 36.7; O2SAT 97
== END 2021-12-11 08:30 | disposition home or self-care (01) | DRG 694 ==
LOC: ER 16:30 → MEDSURG 16:58
PROVIDERS: Admitting Provider Urology; Emergency Provider Family Medicine; PCP Internal Medicine; Visit Provider Urology
DX: N20.0 Calculus of kidney (principal); N99.840 Postprocedural hematoma of a genitourinary system organ or structure following a genitourinary system procedure; Q24.5 Malformation of coronary vessels; G32.81 Cerebellar ataxia in diseases classified elsewhere; Q61.3 Polycystic kidney, unspecified; Z87.442 Personal history of urinary calculi; M35.00 Sjogren syndrome, unspecified; M05.9 Rheumatoid arthritis with rheumatoid factor, unspecified; M35.9 Systemic involvement of connective tissue, unspecified
CPT/HCPCS: 36415; 74176; 80048; 80053; 81001; 85025; 87040; 87086; 96365; 96375; 96376; 99285; J0696; J1170; J2405; J7030

== ENCOUNTER → 2021-12-28 17:21 | Outpatient (BNVA) | payer OTHER, SELFPAY | PROVIDERS: PCP Internal Medicine; Visit Provider Urology | DX: N39.0 Urinary tract infection, site not specified (principal) | CPT/HCPCS: 81003; 87077; 87086; 87186 ==

== ENCOUNTER 2022-01-04 13:43 | Outpatient (CLI) | payer OTHER, SELFPAY ==
--- NOTE | 2022-01-04 14:21 | XR_ITS ---
WS: [email or web address] XR KUB [id number] REASON FOR EXAM: stones FINDINGS: Right ureteral stent is in place in proper position and orientation. Multiple calculi are seen overlying the right kidney. Multiple clusters of calculi are seen overlying the left kidney. No ureteral or bladder calculi are identified. XR/XR KUB 51153 IMPRESSION: Right ureteral stent. Multiple bilateral renal calculi which do not appear to change significantly co mpared to 06/11/2021.
== END 2022-01-04 13:44 | disposition home or self-care (01) ==
LOC: RAD 13:44
PROVIDERS: PCP Internal Medicine; Visit Provider Urology
DX: N20.0 Calculus of kidney (principal)
CPT/HCPCS: 74018; 81003

== ENCOUNTER 2022-01-12 15:21 | Outpatient (CLI) | payer OTHER, SELFPAY ==
--- NOTE | 2022-01-12 15:58 | XR_ITS ---
WS: [email or web address] KUB, AP view, 01/12/2022 Clinical Data: stones Comparison: KUB, 01/04/2022. Findings: No abnormal intraabdominal masses are seen. There is no dilatated small bowel or evidence of obstruct ion. There are calcifications overlying both kidneys. The left kidney shows the calcifications consistent with medullary sponge kidney. There is a large amount of fecal material throughout the colon. There a re clips in the right upper quadrant from a cholecystectomy. XR/XR KUB [id number] Impression: Bilateral renal calculi.
== END 2022-01-12 15:22 | disposition home or self-care (01) ==
PROVIDERS: PCP Internal Medicine; Visit Provider Nurse Practitioner Family
DX: N20.0 Calculus of kidney (principal)
CPT/HCPCS: 74018; 81003

== ENCOUNTER 2022-01-17 11:30 | Outpatient (CLI) | payer OTHER, SELFPAY ==
--- NOTE | 2022-01-17 11:45 | XR_ITS ---
WS: [email or web address] KUB, AP view, 01/17/2022. Clinical Data: stone Comparison: KUB, 01/12/2022. Findings: No abnormal intraabdominal masses are seen. There is no dilatated small bowel or evidence of obstruct ion. Bilateral renal calcifications are seen. The left kidney shows scattered calcifications involve the r ight kidney has a solitary calcification. There are clips in the upper abdomen from a cholecystectomy and clips in the right side of the true pelvis. XR/XR KUB 95135 Impression: No change in bilateral renal calcifications.
== END 2022-01-17 11:31 | disposition home or self-care (01) ==
LOC: RAD 11:33
PROVIDERS: PCP Internal Medicine; Visit Provider Urology
DX: R10.9 Unspecified abdominal pain (principal)
CPT/HCPCS: 74018; 81003

== ENCOUNTER → 2022-01-26 13:30 | Outpatient (BNVA) | payer OTHER, SELFPAY | PROVIDERS: PCP Internal Medicine; Visit Provider Nurse Practitioner Family | DX: N20.0 Calculus of kidney (principal) | CPT/HCPCS: 87086 ==

== ENCOUNTER 2022-03-21 08:46 | Outpatient (CLI) | payer OTHER, SELFPAY ==
--- NOTE | 2022-03-21 08:56 | MM_ITS ---
WS: [email or web address] SCREENING DIGITAL TOMOSYNTHESIS MAMMOGRAM WITH CAD HISTORY: Screening. COMPARISON: 03/08/2021 and 01/27/2020 Bilateral CC and MLO with tomosynthesis views submitted. Synthetic mammography reviewed. Computer aid ed detection analyzed. Breast composition: There are scattered areas of fibroglandular density. No suspicious masses, microc alcifications or architectural distortion. MM/[place] [id number] IMPRESSION: BI-RADS: 1-Negative FOLLOW UP: 1 Year Follow-up
== END 2022-03-21 08:47 | disposition home or self-care (01) ==
LOC: RAD 08:47
PROVIDERS: Visit Provider Nurse Practitioner Women's Health
DX: Z12.31 Encounter for screening mammogram for malignant neoplasm of breast (principal)
CPT/HCPCS: 77063; 77067

== ENCOUNTER → 2022-04-16 12:34 | Outpatient (BNVA) | payer OTHER, SELFPAY | PROVIDERS: Visit Provider Family Medicine Adult Medicine | DX: N39.0 Urinary tract infection, site not specified (principal); R39.9 Unspecified symptoms and signs involving the genitourinary system | CPT/HCPCS: 81000; 87077; 87086; 87184 ==

== ENCOUNTER → 2022-05-03 10:00 | Outpatient (BNVA) | payer OTHER, SELFPAY | PROVIDERS: Visit Provider Urology | DX: R30.0 Dysuria (principal) | CPT/HCPCS: 87077; 87086; 87184 ==

== ENCOUNTER 2022-06-09 09:15 | Outpatient (CLI) | payer OTHER, SELFPAY ==
--- NOTE | 2022-06-09 09:21 | NMR_ITS ---
PROCEDURE INFORMATION: Exam: [place] Kidney Imaging with Vascular Flow and Function, Single Study, with Pharmacological Intervention Exam date and time: 06/09/2022 9:21 AM Age: 46 years old Clinical indication: Condition or disease; Kidney or ureter condition; Hydronephrosis; Prior surgery; Surgery type: Right ureteral reimplantation, ureteral stents; Additional info: Hydronephrosis, nuclear med lasix renogram first june TECHNIQUE: Imaging protocol: Kidney imaging morphology with angiographic images were obtained after diuretic or CLARA inhibitor was administered and additional planar images were obtained. after radiopharmaceutical administration. This radiotracer utilized for calculation of the GFR. Radiopharmaceutical: 11.1 mCi Tc99m DTPA. 11.1 mCi Tc99m DTPA. COMPARISON: [place] renal flow w pharm [id number] 09/23/2021 7:[address] dated 12/10/2021 FINDINGS: There is blood flow to both kidneys although it is decreased on the right when compared to the left. There is uptake of activity into both kidneys, left greater than right. There is transit of activity into the calices and ureter. No evidence for obstruction. After the administration of Lasix at 10 minutes, there is emptying of activity from the left kidney. No significant response in the right kidney. Renal perfusion is 76% to the left kidney and 24% to the right kidney. Renal uptake is 80% to the left kidney and 20% to the right kidney. Time to peak is 4.4 minutes for the left kidney and 8.2 minutes for the right kidney. The diuretic T1/2 is 6.9 minutes for the left kidney and 9.6 minutes for the right kidney. The GFR is 99.8 ml/min for the left kidney and 25.3 ml/min for the right kidney for a total of 125 mL/min. NM/NM renal flow w pharm [id number] IMPRESSION: No significant change when compared with 09/23/2021. There is asymmetry of perfusion and function of the kidneys with more function of the left kidney than the right.
== END 2022-06-09 09:16 | disposition home or self-care (01) ==
PROVIDERS: Visit Provider Urology
DX: N39.0 Urinary tract infection, site not specified (principal); N13.30 Unspecified hydronephrosis; N20.0 Calculus of kidney
CPT/HCPCS: 78708; 87077; 87086; 87186; A9539

== ENCOUNTER → 2022-06-13 10:59 | Outpatient (BNVA) | payer OTHER, SELFPAY | PROVIDERS: PCP Internal Medicine; Visit Provider Urology | DX: N39.0 Urinary tract infection, site not specified (principal); Z98.890 Other specified postprocedural states; Q61.3 Polycystic kidney, unspecified; N20.0 Calculus of kidney | CPT/HCPCS: 87086 ==

== ENCOUNTER → 2022-07-05 11:15 | Outpatient (BNVA) | payer OTHER, SELFPAY | PROVIDERS: PCP Internal Medicine; Visit Provider Nurse Practitioner Family | DX: N39.0 Urinary tract infection, site not specified (principal) | CPT/HCPCS: 87077; 87086; 87184 ==

== ENCOUNTER → 2022-07-18 15:32 | Outpatient (BNVA) | payer OTHER, SELFPAY | PROVIDERS: PCP Internal Medicine; Visit Provider Internal Medicine Rheumatology | DX: M54.2 Cervicalgia (principal); M05.79 Rheumatoid arthritis with rheumatoid factor of multiple sites without organ or systems involvement; M35.00 Sjogren syndrome, unspecified; Z71.85 Encounter for immunization safety counseling; Z79.899 Other long term (current) drug therapy | CPT/HCPCS: 72040 ==

== ENCOUNTER → 2022-07-27 08:15 | Outpatient (BNVA) | payer OTHER, SELFPAY | PROVIDERS: PCP Internal Medicine; Visit Provider Internal Medicine | DX: R30.0 Dysuria (principal) | CPT/HCPCS: 87086 ==

== ENCOUNTER → 2022-08-24 16:25 | Outpatient (BNVA) | payer OTHER, SELFPAY | PROVIDERS: PCP Internal Medicine; Visit Provider Urology | DX: N20.0 Calculus of kidney (principal); N30.20 Other chronic cystitis without hematuria; Z98.890 Other specified postprocedural states | CPT/HCPCS: 81003 ==

== ENCOUNTER 2022-08-29 10:50 | Outpatient (CLI) | payer OTHER, SELFPAY ==
[2022-08-29 11:31] LABS: Basophils # 0.1 10^3/uL (0.0-0.1); Basophils % 0.9 %; Eosinophils # 0.5 10^3/uL (0.0-0.8); Eosinophils % 6.8 %; Hematocrit 44.2 % (37.0-47.0); Hemoglobin 13.9 g/dL (11.5-15.3); Lymphocytes # 1.4 10^3/uL (0.8-4.8); Lymphocytes % 21.8 %; Mean Corpuscular HGB Conc 31.4 g/dL (30.0-36.0); Mean Corpuscular Hemoglobin 28.8 pg (28.0-34.0); Mean Corpuscular Volume 91.7 fl (81-99); Mean Platelet Volume 11.7 fL (7.4-10.4); Monocytes # 0.8 10^3/uL (0.2-0.9); Monocytes % 11.5 %; Neutrophils # 3.87 10^3/uL (1.8-7.7); Neutrophils % 58.7 %; Nucleated Red Blood Cells % 0 %; Platelet Count 194 10^3/cmm (130-400); Red Blood Count 4.82 10^6/uL (4.1-5.3); Red Cell Distribution Width 13.1 % (12.1-15.1); White Blood Count 6.6 10^3/uL (4.0-10.0)
[2022-08-29 12:00] LABS: Alanine Aminotransferase 25 U/L (0-33); Albumin Level 3.6 g/dL (3.5-5.2); Alkaline Phosphatase 112 U/L (35-105); Anion Gap 12.8 (5-19); Aspartate Amino Transferase 27 U/L (0-32); Blood Urea Nitrogen 14 mg/dL (6-20); C Reactive Protein 12.1 mg/L (0.0-4.9); Calcium 9.1 mg/dL (8.5-10.5); Carbon Dioxide 24 mmol/L (22-29); Chloride 103 mmol/L (98-107); Globulin 3.1 g/dL (1.3-4.6); Glomerular Filtration Rate 77.2 mL/min (90-130); Glucose 87 mg/dL (65-115); Osmolality Calculated 282 mOsm/kg (285-295); Phosphorus 2.6 mg/dL (2.5-4.5); Potassium 3.8 mmol/L (3.5-5.1); Sodium 136 mmol/L (136-145); Total Bilirubin 0.5 mg/dL (0.15-1.2); Total Protein 6.7 g/dL (6.6-8.7); Uric Acid 5.7 mg/dL (2.4-5.7)
[2022-09-08 19:19] LABS: Calcium-Oxalate 1.39 (<2.00); Urine Ammonia 24 Hour 15 mEq/day (14-62); Urine Citric Acid 24 Hour 53 mg/day (>320); Urine Phosphorus 24 Hour 648 mg/day (<1100); Urine Potassium 24 Hour 52 mEq/day (19-135); Urine Sulfate 24 Hour 10 mmol/day (<30)
== END 2022-08-29 10:51 | disposition home or self-care (01) ==
PROVIDERS: Internal Medicine Rheumatology; PCP Internal Medicine; Visit Provider Urology
DX: N20.0 Calculus of kidney (principal); M05.79 Rheumatoid arthritis with rheumatoid factor of multiple sites without organ or systems involvement; M19.90 Unspecified osteoarthritis, unspecified site; M35.00 Sjogren syndrome, unspecified; Z79.899 Other long term (current) drug therapy
CPT/HCPCS: 36415; 80048; 80076; 81003; 82131; 82140; 82340; 82436; 82507; 82570; 83735; 83935; 84100; 84300; 84550; 85025; 86140

== ENCOUNTER 2022-09-08 17:41 | Outpatient (CLI) | payer OTHER, SELFPAY ==
[2022-09-08 18:40] LABS: Amylase 32 U/L (28-100); Lipase 37 U/L (13-60)
== END 2022-09-08 17:42 | disposition home or self-care (01) ==
LOC: LAB 17:43
PROVIDERS: PCP Internal Medicine; Visit Provider Internal Medicine Rheumatology
DX: K85.90 Acute pancreatitis without necrosis or infection, unspecified (principal); Z79.899 Other long term (current) drug therapy
CPT/HCPCS: 36415; 82150; 83690

== ENCOUNTER 2022-09-26 13:08 | Outpatient (CLI) | payer OTHER, SELFPAY ==
--- NOTE | 2022-09-26 14:21 | XR_ITS ---
WS: [email or web address] EXAMINATION: XR KUB [id number] REASON FOR EXAM: Bilateral Kidney Stone COMPARISON: 01/17/2022 ORDER DATE: 09/26/2022 2:34 PM FINDINGS: There is no colon or small bowel dilatation or evidence of obstruction. Bilateral renal calcifications are seen. The left kidney shows numerous scattered calcifications some grouped in the medullary portions or infundibula, up to 10 mm in diameter. The right kidney has a few solitary calcification largest is approximately 4 x 7 mm in the mid kidney. Th ere are clips in the upper abdomen from a cholecystectomy and clips in the right side of the true pelvis. XR/XR KUB 18899 IMPRESSION: No change in bilateral renal calcifications likely from difference in visualiza tion from the difference in bowel gas pattern between the 2 studies..
== END 2022-09-26 13:09 | disposition home or self-care (01) ==
LOC: RAD 13:13
PROVIDERS: PCP Internal Medicine; Visit Provider Urology
DX: N20.0 Calculus of kidney (principal)
CPT/HCPCS: 74018; 81003

== ENCOUNTER → 2022-09-30 14:41 | Outpatient (BNVA) | payer OTHER, SELFPAY | PROVIDERS: PCP Internal Medicine; Visit Provider Obstetrics & Gynecology | DX: R23.3 Spontaneous ecchymoses (principal) | CPT/HCPCS: 85025 ==

== ENCOUNTER 2022-10-10 13:03 | Outpatient (CLI) | payer OTHER, SELFPAY ==
--- NOTE | 2022-10-10 13:10 | CT_ITS ---
WS: [email or web address] CT ABDOMEN WITH CONTRAST HISTORY: RUQ PAIN/EPIGASTRIC PAIN/NAUSEA Contiguous single phase 5 mm axial imaging performed to the abdomen. Oral contrast has not been provi ded. Coronal and sagittal reformats are submitted. All CT scans at [facility] use at least on e of these dose optimization techniques: automated exposure control; mA and/or kV adjustment per deidre ent size (includes targeted exams where dose is matched to clinical indication); or iterative reconst ruction. IV CONTRAST: Omnipaque 350; 75 mL IV. Oral contrast: No DLP: 358.98 mGy.cm COMPARISON: 12/10/2021, 03/22/2021 Lower thorax: Lung bases are clear. Heart is normal size. Small hiatal hernia. Liver/biliary system: Normal size with no intrahepatic dilatation. Moderate pneumobilia. Similar to p rior examinations. Gallbladder: Status post cholecystectomy. Normal-sized pancreatic duct. Pancreas: Normal size pancreas and pancreatic duct. No adjacent inflammation. Spleen: Normal size spleen. No mass or infarct. Adrenal glands: Normal. Right kidney: Numerous RIGHT renal cysts are identified. The largest cyst measures 7.3 x 5.8 cm. Ther e are a few nonobstructing calcifications within the renal pelvis. Previously described ureteral sten t has been removed. No obstruction or hydronephrosis. Left kidney: Numerous LEFT renal cysts. There are also numerous calcifications in the renal pelvis si milar to the prior study. Some of these cysts are too small to characterize. Aorta: Normal. Lymphadenopathy: None. Free fluid: None. GI tract: Minimally distended stomach with food products. No small bowel obstruction. The visualized GI tract in the abdomen is negative. No wall thickening or mucosal edema. Abdominal wall: Unremarkable abdominal wall. No hernia. Visualized osseous structures: Unremarkable. CT/CT abdomen w con* [id number] IMPRESSION: 1. Status post cholecystectomy with pneumobilia which is unchanged. 2. No bile duct dilatation. 3. Numerous bilateral renal cysts and calcifications. Similar to prior studies . No hydronephrosis or renal obstruction. 4. Previously seen RIGHT ureteral stent has been removed.
[2022-10-10] MEDS: iohexol 350 mg/mL 500 mL Btl (per mL) IV (13:13)
== END 2022-10-10 13:04 | disposition home or self-care (01) ==
LOC: RAD 13:04
PROVIDERS: PCP Internal Medicine; Visit Provider Nurse Practitioner
DX: R10.11 Right upper quadrant pain (principal); R11.0 Nausea; R10.13 Epigastric pain; Z90.49 Acquired absence of other specified parts of digestive tract; Q61.02 Congenital multiple renal cysts
CPT/HCPCS: 74160; Q9967

== ENCOUNTER → 2022-12-12 14:25 | Outpatient (BNVA) | payer OTHER, SELFPAY | PROVIDERS: PCP Internal Medicine; Visit Provider Urology | DX: N20.0 Calculus of kidney (principal); N30.20 Other chronic cystitis without hematuria; Z98.890 Other specified postprocedural states; Q61.5 Medullary cystic kidney | CPT/HCPCS: 81003 ==

== ENCOUNTER → 2023-01-12 10:00 | Outpatient (BNVA) | payer OTHER, SELFPAY | PROVIDERS: PCP Internal Medicine; Visit Provider Obstetrics & Gynecology | DX: R53.83 Other fatigue (principal) | CPT/HCPCS: 82306; 84443; 85025 ==

== ENCOUNTER 2023-03-06 15:57 | Outpatient (CLI) | payer OTHER, SELFPAY ==
--- NOTE | 2023-03-06 16:18 | XR_ITS ---
WS: [email or web address] Exam: XR hip RT 2-3V wo/w pel* [id number] Date/Time of Exam: 03/06/2023 4:18 PM Reason For Exam: Right hip pain No acute fracture or dislocation. There is bony hypertrophy of the superior lateral acetabulum with m orphology that might predispose the patient to femoral acetabular impingement. Normal soft tissues. T he joint compartment is preserved. IMPRESSION: 1. No fracture or dislocation. 2. Bony morphology of the acetabulum that might be seen with femoral acetabular impingement.
--- NOTE | 2023-03-06 16:28 | XR_ITS ---
WS: [email or web address] Exam: XR knee RT 4V [id number] Date/Time of Exam: 03/06/2023 4:28 PM Reason For Exam: Right knee pain No acute fracture or dislocation. Postoperative changes consistent with prior ACL reconstruction. Old fracture deformity of the lateral plateau. Moderate tricompartmental DJD with spurring of the wire fence erector ior patella. No joint effusion. IMPRESSION: 1. Signs of ACL reconstruction and old lateral plateau fracture. 2. Posttraumatic tricompartmental degenerative change.
== END 2023-03-06 15:58 | disposition home or self-care (01) ==
PROVIDERS: PCP Internal Medicine; Visit Provider Nurse Practitioner Family
DX: M17.31 Unilateral post-traumatic osteoarthritis, right knee (principal); Z98.890 Other specified postprocedural states; M25.551 Pain in right hip
CPT/HCPCS: 73502; 73564

== ENCOUNTER 2023-03-30 13:54 | Outpatient (CLI) | payer OTHER, SELFPAY | END 2023-03-30 13:55 | disposition home or self-care (01) | LOC: SPT 13:54 | PROVIDERS: PCP Internal Medicine; Visit Provider Podiatrist Foot & Ankle Surgery | DX: Z46.89 Encounter for fitting and adjustment of other specified devices (principal); M72.2 Plantar fascial fibromatosis | CPT/HCPCS: 97760; L3030 ==

== ENCOUNTER 2023-04-03 09:14 | Outpatient (CLI) | payer OTHER, SELFPAY ==
--- NOTE | 2023-04-03 09:40 | MM_ITS ---
WS: [email or web address] BILATERAL SCREENING DIGITAL TOMOSYNTHESIS MAMMOGRAM WITH CAD HISTORY: SCREENING COMPARISON: 03/21/2022 and 03/08/2021 Bilateral CC and MLO views with tomosynthesis and synthetic mammography submitted. Computer aided det ection analyzed. Breast composition: There are scattered areas of fibroglandular density. No suspicious masses, microc alcifications or architectural distortion. IMPRESSION: MM/[place] [id number] BI-RADS: 1-Negative FOLLOW UP: 1 Year Follow-up
== END 2023-04-03 09:15 | disposition home or self-care (01) ==
PROVIDERS: PCP Internal Medicine; Visit Provider Internal Medicine
DX: Z12.31 Encounter for screening mammogram for malignant neoplasm of breast (principal)
CPT/HCPCS: 77063; 77067

== ENCOUNTER → 2023-06-17 11:46 | Outpatient (BNVA) | payer OTHER, SELFPAY | PROVIDERS: PCP Internal Medicine; Visit Provider Physician Assistant | DX: M70.61 Trochanteric bursitis, right hip (principal); I80.9 Phlebitis and thrombophlebitis of unspecified site; M05.79 Rheumatoid arthritis with rheumatoid factor of multiple sites without organ or systems involvement | CPT/HCPCS: 80053; 83516; 85025; 85651; 86146; 86147 ==

== ENCOUNTER 2023-07-05 11:06 | Outpatient (CLI) | payer OTHER, SELFPAY ==
--- NOTE | 2023-07-05 11:10 | USCV_ITS ---
Norma Rodriguez Age: 47 Gender: F : 1975 Exam Date: 07/05/2023 11:17 Ordering Phys: Martha Ballesteros MD Technologist: BRIANA Exam Location: [facility] [place]_ Indication: 2 areas, rt mid thigh and ankle popped up red/painful and disappeared within a week. HISTORY: Lower extremity pain. PROCEDURES: Venous duplex imaging was performed in only the right lower extremity. The following venous structures were evaluated: common femoral vein, profunda vein, proximal portion of the greater saphenous vein, superficial femoral vein, and the popliteal vein. In addition, the posterior tibial and peroneal trunk were evaluated. Serial compression, augmentation maneuvers, and spectral Doppler flow evaluation were performed. FINDINGS: No evidence of DVT seen in any vessel visualized at this time. CONCLUSIONS No evidence of right lower extremity DVT. Vincent Araujo MD (Electronically Signed) Final Date: 05 July 2023 12:06 S
== END 2023-07-05 11:07 | disposition home or self-care (01) ==
LOC: RAD 11:07
PROVIDERS: PCP Internal Medicine; Visit Provider Internal Medicine
DX: M79.661 Pain in right lower leg (principal); M79.651 Pain in right thigh
CPT/HCPCS: 93971

== ENCOUNTER 2023-10-25 13:03 | Emergency (ER) | payer OTHER, SELFPAY ==
[2023-10-25] VITALS (11 sets, daily range): BP systolic 125–159; BP diastolic 73–101; PULSE 57–94; RESP 16; TEMP 36.6; O2SAT 94–100
[2023-10-25 13:27] LABS: Add Urine Microscopic? NO; Charge for UA Resulting for Rev
[2023-10-25 13:37] LABS: Bilirubin Urine Neg (Negative); Blood Urine Neg (Negative); Glucose Urine UA Norm (Normal); Ketones Urine Negative (Negative); Leukocyte Esterase Urine Negative (Negative); Nitrate Urine Negative (Negative); Protein Urine Neg (Negative); Urine Appearance Clear (CLEAR); Urine Color Yellow (Yellow); Urobilinogen Urine Norm (Negative); pH Urine 7 (5-7)
--- NOTE | 2023-10-25 14:12 | ED_ITS ---
HPI - Abdominal Pain 2 General: Chief Complaint: Abdominal Pain Stated Complaint: right flank pain Time Seen by Provider: 10/25/23 13:52 Source: patient Mode of arrival: ambulatory History of Present Illness: 47-year-old female 47-year-old female pr esents to the emergency room complaining of right flank pain that began this morning with right lower quadrant pain. Took some Tylenol and Zofran with minimal relief of symptoms. Patient has a history of ureteral stenosis had a ureteral reconstruction 2 years ago. As result of the ureteral stenosis did lose some kidney function on the right. Patient had renal colic like symptoms similar to what she has had in the past with nephrolithiasis. She has known stones on the left kidney but none noted on the right. No fever sweats or chills associated with no shortness of breath. MD elicited complaint: abdominal pain Location: R flank Severity: moderate Quality: sharp Migration to: RLQ and other (Right groin) Exacerbating factors: nothing Associated Symptoms: Denies chills, dysuria and fever(s) Review of Systems 2 Const: Denies: fever(s) or chills Card: Denies: chest pain Resp: Denies: dyspnea GI: Denies: abdominal pain : Denies: dysuria, urinary frequency or urinary urgency Musc: Denies: neck pain or back pain Skin/Breast: Denies: rash PFSH ED 2 PFSH: Medical History Chronic cystitis Urinary tract infection Immunization counseling High risk medication use Mood changes 2018--currently on Trintellix No pertinent past medical history Denies diabetes, asthma, hypertension, seizures, DVT/PE PCP: Dr. Ballesteros Seropositive rheumatoid arthritis of multiple sites Ureteral stricture, right Hydronephrosis, right Nephrolithiasis Migraine headache with aura Diagnosed in 2006 however has not had symptoms in years. She is not on any medication. 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 Mejia Sclerosing mesenteritis Primary Sjogren's syndrome Myocardial bridge Diagnosed in 2019 when she was undergoing evaluation for palpitation. Per patient this is asymptomatic and she is not on any medication. Sees clarity developer Dr. Fierro at [facility] as needed Surgical History Status post ureteral reimplantation Right ureteral reimplantation, distal ureteral excision, psoas hitch for distal ureteral stricture H/O arthroscopy of knee 2017-right knee S/P bilateral breast reduction (~03/2000) H/O vaginal surgery (10/04/02) A&P repair, Katelyn application. Dx: Cystocele, rectocele, HUMA. Performed by Dr. Card at [facility] in [place], [place]. S/P cystoscopy with ureteral stent placement X 4 Status post hysteroscopic ablation of endometrium (05/09/17) NovaSure. Dx: Menorrhagia. Performed by Dr. Card at [facility] in [place], [place]. S/P laparoscopic assisted vaginal hysterectomy (LAVH) (12/04/18) With LSO, RS, Anterior vaginal repair, Solyx SIS, cystoscopy. Dx: Incomplete uterovaginal prolapse, HUMA. Performed by Dr. Card at [facility] in [place], [place]. S/P tubal ligation (06/01/12) LTF. Performed by Dr. Card at [facility] in [place], [place]. History of esophagogastroduodenoscopy (EGD) X 2 2018--2019-with sphincterotomy of sphincter of oddi. Performed in [place] S/P cholecystectomy (~1996) Laparoscopic. Performed by Dr. Burgess at [facility] in [place], [place] S/P ACL repair (~1993) Open on Right Family History Father Hypertension Cancer prostate Grandmother Diabetes Maternal CAD (coronary artery disease) Maternal Stroke Maternal Chronic kidney disease (CKD) Maternal Daughter Diabetes Mother CAD (coronary artery disease) Arthritis Chronic kidney disease (CKD) Thyroid disease Grandfather CAD (coronary artery disease) Paternal Sister Asthma Migraines Diabetes Family/Other CAD (coronary artery disease) Maternal aunt Chronic kidney disease (CKD) Maternal aunt Denies family history of Colon cancer Ovarian cancer Breast cancer Uterine cancer Social History Smoking and tobacco/nicotine status: never used tobacco/nicotine Alcohol intake: never Substance/Drug Use: never Marital status: Current occupational status: employed Physical Exam 2 Const: COMMON NORMALS: no acute distress GENERAL APPEARANCE: cooperative and comfortable ORIENTATION/CONSCIOUSNESS: Yes awake, Yes oriented to person, Yes oriented to place and Yes oriented to time HENMT: COMMON NORMALS: normocephalic, atraumatic and hearing grossly normal bilaterally HEAD & SCALP: normocephalic and atraumatic Resp: COMMON NORMALS: normal respiratory effort, No retractions, No use of accessory muscles and clear to auscultation bilaterally AUSCULTATION: clear to auscultation bilaterally Cardio: COMMON NORMALS: regular rate, regular rhythm and No murmurs present (Cardio) RATE: regular rate RHYTHM: regular rhythm GI: COMMON NORMALS: Soft to palpation and No hepatosplenomegaly present A USCULTATION: Yes normoactive bowel sounds PALPATION: Yes Soft to palpation, No Tenderness to palpation present (GI), No Guarding due to palpation present (GI) and Yes No hepatosplenomegaly present Extremity: COMMON NORMALS: normal to inspection, capillary refill normal, no clubbing, cyanosis or edema, no calf tenderness and no pedal edema Neuro: SENSORIUM/ORIENTATION: Yes oriented to person, Yes oriented to place and Yes oriented to time Skin: COMMON NORMALS: no rashes or lesions noted GENERAL SKIN EXAM: no rashes or lesions noted Course 2 Vital Signs: Vital signs: Vital Signs Temperature 98 F 10/25/23 13:06 Pulse Rate 76 10/25/23 19:43 Respiratory Rate 16 10/25/23 14:36 Blood Pressure 125/83 10/25/23 19:43 Pulse Oximetry 99 10/25/23 19:43 Oxygen Delivery Me thod Room Air 10/25/23 16:10 MDM - Abdominal Pain Medical Decision Making Labs and imaging reviewed. Patient has no signs of infection in the urine at this time she had renal colic when she first arrived she appeared to be clinically passing a stone no stone seen on the CT CT was repeated with delayed imaging with IV contrast to look for recurrence of ureteral stenosis or narrowing that might explain her symptoms all this was negative. Her symptoms are resolved and she is feeling better will discharge patient home. She was encouraged to contact her urologist at [place] tomorrow to let him know of the symptoms she had. Also will forward the CT so that her urologist can review them. She has recurrence of symptoms return given hydrocodone to use as needed for renal colic pain Medical Records I reviewed the patient's medical records. Lab Data I reviewed the patient's lab results. 10/25/23 14:06 10/25/23 14:06 Labs/Radiology: Radiology Impressions Abdomen/Pelvis CT 10/25/23 16:07 IMPRESSION: 1. Question subtle enhancement involving the right renal collecting system and ureter. Infection cannot be excluded. Recommend clinical correlation. 2. Stable appearance to 3.5 cm cystic lesion within the pelvis which may be ovarian or adnexal in origin. Pelvic gynecological structures would be better assessed with pelvic ultrasound if clinically warranted. Laboratory Results WBC 10.15 10^3/uL (3.29-11.43) 10/25/23 14:06 RBC 5.33 10^6/uL (3.85-5.65) 10/25/23 14:06 Hgb 15.40 g/dL (11.27-16.99) 10/25/23 14:06 Hct 47.5 % (36-47) H 10/25/23 14:06 MCV 89.1 fl (85-98) 10/25/23 14:06 MCH 28.9 pg (27-33) 10/25/23 14:06 MCHC 32.4 g/dL (30-55) 10/25/23 14:06 RDW 12.7 % (12.1-15.1) 10/25/23 14:06 Plt Count 254 10^3/cmm (157-399) 10/25/23 14:06 MPV 10.7 fL (7.4-10.4) H 10/25/23 14:06 Neut % (Auto) 88.4 % 10/25/23 14:06 Lymph % (Auto) 9.1 % 10/25/23 14:06 [place] % (Auto) 1.5 % 10/25/23 14:06 Eos % (Auto) 0.1 % 10/25/23 14:06 Baso % (Auto) 0.3 % 10/25/23 14:06 Neut # (Auto) 8.98 10^3/uL (1.8-7.7) H 10/25/23 14:06 Lymph # (Auto) 0.9 10^3/uL (0.8-4.8) 10/25/23 14:06 [place] # (Auto) 0.2 10^3/uL (0.2-0.9) 10/25/23 14:06 Eos # (Auto) 0.0 10^3/uL (0.0-0.8) 10/25/23 14:06 Baso # (Auto) 0.0 10^3/uL (0.0-0.1) 10/25/23 14:06 Nucleated RBC % (auto) 0 % 10/25/23 14:06 Nucleated RBCs # 0.0 /100WBC 10/25/23 14:06 Sodium 136 mmol/L (136-145) 10/25/23 14:06 Potassium 4.5 mmol/L (3.5-5.1) 10/25/23 14:06 Chloride 101 mmol/L (98-107) 10/25/23 14:06 Carbon Dioxide 22 mmol/L (22-29) 10/25/23 14:06 Anion Gap 17.5 (5-19) 10/25/23 14:06 BUN 17 mg/dL (6-20) 10/25/23 14:06 Creatinine 0.9 mg/dL (0.5-0.9) 10/25/23 14:06 GFR Calculation 67.1 mL/min (90-130) L 10/25/23 14:06 Glucose 127 mg/dL (65-115) H 10/25/23 14:06 Calculated Osmolality 285 mOsm/kg (285-295) 10/25/23 14:06 Calcium 9.5 mg/dL (8.5-10.5) 10/25/23 14:06 Total Bilirubin 0.6 mg/dL (0.15-1.2) 10/25/23 14:06 AST 34 U/L (0-32) H 10/25/23 14:06 ALT 34 U/L (0-33) H 10/25/23 14:06 Alkaline Phosphatase 85 U/L (35-105) 10/25/23 14:06 Total Protein 7.9 g/dL (6.6-8.7) 10/25/23 14:06 Albumin 4.4 g/dL (3.5-5.2) 10/25/23 14:06 Globulin 3.5 g/dL (1.3-4.6) 10/25/23 14:06 Lipase 31 U/L (13-60) 10/25/23 14:06 Urine Color Yellow (Yellow) 10/25/23 13:17 Urine Appearance Clear (CLEAR) 10/25/23 13:17 Urine pH 7 (5-7) 10/25/23 13:17 Ur Specific [place] 1.010 (1.005-1.030) 10/25/23 13:17 Urine Protein Neg (Negative) 10/25/23 13:17 Urine Glucose (UA) Norm (Normal) 10/25/23 13:17 Urine Ketones Negative (Negative) 10/25/23 13:17 Urine Blood Neg (Negative) 10/25/23 13:17 Urine Nitrate Negative (Negative) 10/25/23 13:17 Urine Bilirubin Neg (Negative) 10/25/23 13:17 Urine Urobilinogen Norm mg/dL (Negative) 10/25/23 13:17 Ur Leukocyte Esterase Negative (Negative) 10/25/23 13:17 All radiology interpretation(s) finalized by discharge Discharge Plan Discharge Patient Disposition: Home Clinical Impression: Renal colic on right side, Polycystic kidney disease Condition: Stable Prescriptions: New hydrocodone-acetaminophen 5-325 mg tablet 1 tab PO Q6H PRN (Reason: pain) Qty: 15 0RF No Action pyridoxine (vitamin B6) [Vitamin B-6] 100 mg tablet 100 mg PO DAILY B12 Active 1,000 mcg tablet,chewable 500 mcg PO DAILY magnesium 200 mg tablet 400 mg PO DAILY cholecalciferol (vitamin D3) 50 mcg (2,000 unit) capsule 50 mcg PO DAILY fluconazole 200 mg tablet 200 mg PO .WEEKLY PRN (Reason: yeast infection) (DME) SOLE Supports See Rx Instructions .Route .MEDSUPPLY Qty: 1 0RF Rx Instructions: As directed hydroxychloroquine [Plaquenil] 200 mg tablet 200 mg PO DAILY cyclobenzaprine 10 mg tablet 10 mg PO TID PRN (Reason: muscle spasm) Qty: 30 1RF potassium citrate 10 mEq (1,080 mg) tablet extended release 20 meq PO BID folic acid 1 mg tablet 1 mg PO DAILY Qty: 90 3RF pantoprazole 40 mg tablet,delayed release (DR/EC) 40 mg PO DAILY Qty: 30 1RF Humira(CF) 40 mg/0.4 mL syringe kit See Rx Instructions SUBCUT .COMPLEX Qty: 2 12RF Rx Instructions: inject one - 40 mg/0.4 mL syringe every 2 weeks SUBCUT valacyclovir [Valtrex] 1 gram tablet 1,000 mg PO DAILY PRN (Reason: cold sores) Qty: 90 3RF estradiol 0.5 mg tablet 0.5 mg PO DAILY Qty: 90 5RF Trintellix 5 mg tablet 10 mg PO DAILY Rx Instructions: MEDICATION ON HOLD Zofran 4 mg Tablet 4 mg PO Q6H PRN (Reason: Nausea) gabapentin 300 mg capsule 300 mg PO BID PreviDent 5000 Dry Mouth 1.1 % paste 1 applic PO .2XWEEKLY methenamine hippurate 1 gram tablet 1 g PO BID PRN (Reason: Recurrent UTI) Rx Instructions: 1 pill twice a day with 1 g vitamin C each dose After completion of prolonged antibiotic course. cefuroxime axetil 500 mg tablet 500 mg PO BID PRN (Reason: UNKNOWN) Discharge Orders: Discharge ED (Routine); Ordered 10/25/23 Ordered By: Donovan Pettit Referrals: Martha Ballesteros MD [Primary Care Provider] - Discharge Diet: Usual diet Discharge Activity: Increase activity as tolerated Patient Instructions: Abdominal Pain (ED), Opioid Safety, Pain Management Activity Restrictions/Additional Instructions: Thank you for choosing [facility] for your healthcare needs today. Please realize this is an emergency room and that we are providing you with a medical screening exam and this may not be complete and all inclusive of all the testing and or work up that you may need to determine your ailment or severity of your illness. It is very important that you follow up as instructed or that you return to the Emergency Department should you have concerns or if your condition changes or worsens in any way. You were seen today for right renal colic. There is no significant findings on your labs or your imaging however given your history is strongly recommend that you contact your neurologist tomorrow to review the CTs that were done today and seek further advice regarding the symptoms. If you have worsening of pain or new symptoms return to the emergency room. Coding Level of Care Code ED [employer] for [facility] [employer]a
[2023-10-25] MEDS: metoclopramide 5 mg/mL SDV 2 mL 10 MG IVP (14:21)
[2023-10-25] MEDS: sodium chloride 0.9% 1,000 ML 999 ML IV (14:22)
[2023-10-25 14:30] LABS: Basophils % 0.3 %; Eosinophils % 0.1 %; Hematocrit 47.5 % (36-47); Lymphocytes # 0.9 10^3/uL (0.8-4.8); Lymphocytes % 9.1 %; Mean Corpuscular HGB Conc 32.4 g/dL (30-55); Mean Corpuscular Hemoglobin 28.9 pg (27-33); Mean Corpuscular Volume 89.1 fl (85-98); Mean Platelet Volume 10.7 fL (7.4-10.4); Monocytes # 0.2 10^3/uL (0.2-0.9); Monocytes % 1.5 %; Neutrophils # 8.98 10^3/uL (1.8-7.7); Neutrophils % 88.4 %; Nucleated Red Blood Cells % 0 %; Platelet Count 254 10^3/cmm (157-399); Red Blood Count 5.33 10^6/uL (3.85-5.65); Red Cell Distribution Width 12.7 % (12.1-15.1); White Blood Count 10.15 10^3/uL (3.29-11.43)
[2023-10-25] MEDS: morphine 4 mg/mL SDV 1 mL IVP (14:36)
[2023-10-25 14:50] LABS: Alanine Aminotransferase 34 U/L (0-33); Albumin Level 4.4 g/dL (3.5-5.2); Alkaline Phosphatase 85 U/L (35-105); Anion Gap 17.5 (5-19); Aspartate Amino Transferase 34 U/L (0-32); Blood Urea Nitrogen 17 mg/dL (6-20); Calcium 9.5 mg/dL (8.5-10.5); Carbon Dioxide 22 mmol/L (22-29); Chloride 101 mmol/L (98-107); Creatinine Clr Calc Pharmacy 92.1055; Globulin 3.5 g/dL (1.3-4.6); Glomerular Filtration Rate 67.1 mL/min (90-130); Glucose 127 mg/dL (65-115); Lipase 31 U/L (13-60); Osmolality Calculated 285 mOsm/kg (285-295); Potassium 4.5 mmol/L (3.5-5.1); Sodium 136 mmol/L (136-145); Total Bilirubin 0.6 mg/dL (0.15-1.2); Total Protein 7.9 g/dL (6.6-8.7)
--- NOTE | 2023-10-25 15:11 | CTR_ITS ---
PROCEDURE INFORMATION: Exam: CT Abdomen And Pelvis Without Contrast Exam date and time: 10/25/2023 3:19 PM Age: 47 years old Clinical indication: Abdominal pain; Flank; Right; Prior surgery; Surgery date: 6+ months; Surgery type: Hyst, marcie; Additional info: Flank pain TECHNIQUE: Imaging protocol: Computed tomography of the abdomen and pelvis without contrast. Radiation optimization: All CT scans at this facility use at least one of these dose optimization techniques: automated exposure control; mA and/or kV adjustment per patient size (includes targeted exams where dose is matched to clinical indication); or iterative reconstruction. COMPARISON: CT abdomen w con* [id number] 10/10/2022 1:36 PM RADIATION DOSE METRICS: Total DLP (mGy-cm): 920.93 FINDINGS: Limitations: Evaluation is limited without the use of IV and oral contrast, particularly for the evaluation of infection and malignancy. Liver: The liver is unremarkable in appearance. Gallbladder and bile ducts: Status post cholecystectomy. Stable pneumobilia. Pancreas: Pancreas is unremarkable in appearance. No ductal dilation. Spleen: The spleen is normal in size and contour. Adrenal glands: Adrenal glands are unremarkable in appearance. Kidneys and ureters: No hydronephrosis. Stable appearance to multiple right renal cysts measuring up to 7.5 cm. Stable 1 cm right renal calcification. Stable appearance to multiple left renal calcifications which may be related to medullary nephrocalcinosis. Redemonstration of the left renal cysts measuring up to 3.2 cm. Stomach and bowel: Stomach and bowel grossly unremarkable. No evidence of bowel obstruction. Appendix: Appendix is normal. Intraperitoneal space: Unremarkable. No free air. No significant fluid collection. Vasculature: Unremarkable. No abdominal aortic aneurysm. Lymph nodes: No abdominal or pelvic lymphadenopathy. Urinary bladder: Nondistended bladder. Reproductive: The uterus is not identified. Nonspecific cystic lesion is seen in the pelvis measuring up to 3.5 cm in size and may represent an ovarian or adnexal cyst . Pelvic gynecological structures would be better assessed with pelvic ultrasound if clinically warranted. Bones/joints: No acute bony abnormality. Soft tissues: Umbilical hernia containing fat. CT/CT kidney stone [id number] IMPRESSION: 1. No acute abdominal and pelvic pathology. 2. Redemonstration of bilateral renal cysts and renal calcifications. 3. Cystic structure in the pelvis may be ovarian or adnexal in origin. Pelvic gynecological structures would be better assessed with pelvic ultrasound if clinically warranted.
--- NOTE | 2023-10-25 16:07 | CTR_ITS ---
PROCEDURE INFORMATION: Exam: CT Abdomen And Pelvis With Contrast Exam date and time: 10/25/2023 5:04 PM Age: 47 years old Clinical indication: Abdominal pain; Flank; Right; Prior surgery; Surgery date: 6+ months; Surgery type: Hyst, marcie; Additional info: R renal colic, 15 min delay 2 phase - contact deyanira TECHNIQUE: Imaging protocol: Computed tomography of the abdomen and pelvis with contrast. Radiation optimization: All CT scans at this facility use at least one of these dose optimization techniques: automated exposure control; mA and/or kV adjustment per patient size (includes targeted exams where dose is matched to clinical indication); or iterative reconstruction. Contrast material: OMNI 350; Contrast volume: 100 ml; Contrast route: INTRAVENOUS (IV); COMPARISON: CT kidney stone [id number] 10/25/2023 3:19 PM RADIATION DOSE METRICS: Total DLP (mGy-cm): 1846.23 FINDINGS: Liver: The liver is unremarkable in appearance. Gallbladder and bile ducts: Status post cholecystectomy. Stable pneumobilia. Pancreas: Pancreas is unremarkable in appearance. No ductal dilation. Spleen: The spleen is normal in size and contour. Adrenal glands: Adrenal glands are unremarkable in appearance. Kidneys and ureters: Stable appearance to bilateral renal cysts. Stable bilateral renal calcifications. No hydronephrosis. Question subtle urothelial enhancement involving the right renal collecting system and right ureter. Stomach and bowel: Stomach and bowel grossly unremarkable. No evidence of bowel obstruction. Appendix: Appendix is normal. Intraperitoneal space: Unremarkable. No free air. No significant fluid collection. Vasculature: Unremarkable. No abdominal aortic aneurysm. Lymph nodes: Unremarkable. No enlarged lymph nodes. Urinary bladder: Bladder unremarkable. Reproductive: Stable appearance to 3.5 cm cystic lesion within the pelvis which may be ovarian or adnexal in origin. Bones/joints: No acute bony abnormality. Soft tissues: Umbilical hernia containing fat. CT/CT abdomen pelvis w con* [id number] IMPRESSION: 1. Question subtle enhancement involving the right renal collecting system and ureter. Infection cannot be excluded. Recommend clinical correlation. 2. Stable appearance to 3.5 cm cystic lesion within the pelvis which may be ovarian or adnexal in origin. Pelvic gynecological structures would be better assessed with pelvic ultrasound if clinically warranted.
[2023-10-25] MEDS: iohexol 350 mg/mL 500 mL Btl (per mL) IV (17:10)
== END 2023-10-25 19:43 | disposition home or self-care (01) ==
PROVIDERS: Physician Assistant; Emergency Provider Family Medicine; PCP Internal Medicine
DX: N23 Unspecified renal colic (principal); Q61.3 Polycystic kidney, unspecified; Z87.442 Personal history of urinary calculi
CPT/HCPCS: 36415; 74176; 74177; 80053; 81003; 83690; 85025; 96374; 96375; 99285; J2270; J2765; J7030; Q9967

== ENCOUNTER → 2023-11-07 09:45 | Outpatient (BNVA) | payer OTHER, SELFPAY | PROVIDERS: PCP Internal Medicine; Visit Provider Obstetrics & Gynecology | DX: R39.9 Unspecified symptoms and signs involving the genitourinary system (principal) | CPT/HCPCS: 84315; 87086 ==

== ENCOUNTER 2024-01-19 12:33 | Emergency (ER) | payer OTHER, SELFPAY ==
[2024-01-19 12:36] VITALS: BP 144/85; PULSE 70; RESP 14; TEMP 36.7; O2SAT 98; BMI 32.5
--- NOTE | 2024-01-19 13:23 | CTR_ITS ---
PROCEDURE INFORMATION: Exam: CT Abdomen And Pelvis With Contrast Exam date and time: 01/19/2024 1:46 PM Age: 48 years old Clinical indication: Abdominal pain; Localized; Right; Prior surgery; Surgery date: 6+ months; Surgery type: Hyster, gb; Additional info: Eval appendicitis or R ovarian torsion, previous hysterectomy and right oophorectomy. TECHNIQUE: Imaging protocol: Computed tomography of the abdomen and pelvis with contrast. Radiation optimization: All CT scans at this facility use at least one of these dose optimization techniques: automated exposure control; mA and/or kV adjustment per patient size (includes targeted exams where dose is matched to clinical indication); or iterative reconstruction. Contrast material: OMNIPAQUE 350; Contrast volume: 100 ml; Contrast route: INTRAVENOUS (IV); COMPARISON: CT abdomen pelvis w con* [id number] 10/25/2023 5:04 PM RADIATION DOSE METRICS: Total DLP (mGy-cm): 946.71 FINDINGS: Liver: Normal. No mass. Gallbladder and biliary ducts: Cholecystectomy:. Gas within biliary system. Pancreas: Normal. No ductal dilation. Spleen: Normal. No splenomegaly. Adrenal glands: Normal. No mass. Kidneys and ureters: Multiple bilateral renal cysts. Multiple bilateral nonobstructing renal calculi. Stomach and bowel: Unremarkable. No obstruction. No mucosal thickening. Appendix: No evidence of appendicitis. Intraperitoneal space: No acute subdiaphragmatic pathology. Vasculature: Unremarkable. No abdominal aortic aneurysm. Lymph nodes: Unremarkable. No enlarged lymph nodes. Urinary bladder: Unremarkable as visualized. Reproductive: Unremarkable as visualized. Bones/joints: Unremarkable. No acute fracture. Soft tissues: Unremarkable. CT/CT abdomen pelvis w con* [id number] IMPRESSION: No acute subdiaphragmatic pathology. COMMENTS: Consistent with the [employer]'s Incidental Findings Committee white paper (J Am Stevie Radiol 2018): Any incidental renal lesion less than 1 cm or classified as too small to characterize, or any incidental cystic renal lesion characterized as simple-appearing, is likely benign. No follow-up imaging is recommended for these lesions per consensus recommendations based on imaging criteria.
--- NOTE | 2024-01-19 13:26 | ED_ITS ---
HPI - Abdominal Pain 2 General: Chief Complaint: Abdominal Pain Stated Complaint: right side pain Time Seen by Provider: 01/19/24 13:00 History of Present Illness: HPI: Patient with history of recurrent ureterolithiasis with history of hysterectomy and left oophorectomy presenting to the emergency department with progressive right lower quadrant abdominal pain. Abdominal pain described as aching to colicky in nature. Onset was after a pelvic examination yesterday by one of her colleagues. 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 No fevers, sweats, chills, diarrhea, nausea, vomiting. Has not having regular bowel movements. Right lower quadrant tenderness palpation, no CVA tenderness on the right or left. ROS: 10 systems reviewed and otherwise unrema rkable except for those noted in HPI. Physical Exam: Triage vital signs reviewed General: No acute distress, cooperative and comfortable HEENT: Normocephalic, atraumatic, external ears normal, moist mucous membranes, PERRLA. Chest: Normal inspection, equal rise and fall, no edema Respiratory: Normal respiratory effort, no atypical respiratory sounds GI: RLQ mild tenderness palpation without rebound Extremities: Moving all 4 extremities easily, no deformities Neuro: No meningeal signs, motor function in the room without abnormalities, sensation intact Skin: No rashes, bruising, warm, dry Procedures: N/A MDM: Considered diagnoses include but are not limited to intra-abdominal surgical or infectious emergency, ureterolithiasis, urinary tract infection, atypical STD, bacterial vaginosis, yeast infection, Vital signs nonactionable. Based on history, exam, and any results no emergent condition identified. CT abdomen pelvis without identified emergency. No leukocytosis. Creatinine trending near baseline 1 (versus 0.9 previously) urine with RBCs possibly consistent with passed ureterolith. Consider need for ovarian ultrasound her transvaginal ultrasound this time, however, given no abnormal CT findings will defer US at this time as history is somewhat atypical for torsion. This decision made in conjunction with the patient and in the room. Patient comfortable returning home and pursuing conservative management. Patient educated about reasons to return to the emergency department including signs of ongoing or changing condition. Advised to make an appointment with primary care or to establish care with a primary care provider to review all results from this encounter. This note was written with assistance of dictation software. Contact author for any clarification of typos. John Panchal MD [facility] 2 PFS: Medical History Chronic cystitis Urinary tract infection Immunization counseling High risk medication use Mood changes 2018--currently on Trintellix No pertinent past medical history Denies diabetes, asthma, hypertension, seizures, DVT/PE PCP: Dr. Ballesteros Seropositive rheumatoid arthritis of multiple sites Ureteral stricture, right Hydronephrosis, right Nephrolithiasis Migraine headache with aura Diagnosed in 2006 however has not had symptoms in years. She is not on any medication. Does not have a neurologist Adult celiac disease Diagnosed in 2019--has a welfare analyst in [place].(Dr Turner and Dr. Mejia Sclerosing mesenteritis Primary Sjogren's syndrome Myocardial bridge Diagnosed in 2019 when she was undergoing evaluation for palpitation. Per patient this is asymptomatic and she is not on any medication. Sees managing consultant Dr. Fierro at [facility] as needed Surgical History Status post ureteral reimplantation Right ureteral reimplantation, distal ureteral excision, psoas hitch for distal ureteral stricture H/O arthroscopy of knee 2017-right knee S/P bilateral breast reduction (~03/2000) H/O vaginal surgery (10/04/02) A&P repair, Katelyn application. Dx: Cystocele, rectocele, HUMA. Performed by Dr. Card at [facility] in [place], [place]. S/P cystoscopy with ureteral stent placement X 4 Status post hysteroscopic ablation of endometrium (05/09/17) NovaSure. Dx: Menorrhagia. Performed by Dr. Card at [facility] in [place], [place]. S/P laparoscopic assisted vaginal hysterectomy (LAVH) (12/04/18) With LSO, RS, Anterior vaginal repair, Solyx SIS, cystoscopy. Dx: Incomplete uterovaginal prolapse, HUMA. Performed by Dr. Card at [facility] in [place], [place]. S/P tubal ligation (06/01/12) LTF. Performed by Dr. Card at [facility] in [place], [place]. History of esophagogastroduodenoscopy (EGD) X 2 2018--Ayush 2020-with sphincterotomy of sphincter of oddi. Performed in [place] S/P cholecystectomy (~1996) Laparoscopic. Performed by Dr. Burgess at [facility] in [place], [place] S/P ACL repair (~1993) Open on Right Family History Father Hypertension Cancer prostate Grandmother Diabetes Maternal CAD (coronary artery disease) Maternal Stroke Maternal Chronic kidney disease (CKD) Maternal Daughter Diabetes Mother CAD (coronary artery disease) Arthritis Chronic kidney disease (CKD) Thyroid disease Grandfather CAD (coronary artery disease) Paternal Sister Asthma Migraines Diabetes Family/Other CAD (coronary artery disease) Maternal aunt Chronic kidney disease (CKD) Maternal aunt Denies family history of Colon cancer Ovarian cancer Breast cancer Uterine cancer Social History (Updated 01/18/24 @ 10:17 by Keesha Lezama LPN) Smoking and tobacco/nicotine status: never used tobacco/nicotine Course 2 Vital Signs: Vital signs: Vital Signs Temperature 98.0 F 01/19/24 12:36 Pulse Rate 70 01/19/24 12:36 Respiratory Rate 14 01/19/24 12:36 Blood Pressure 140/77 01/19/24 14:39 Pulse Oximetry 98 01/19/24 14:39 Oxygen Delivery Me thod Room Air 01/19/24 12:36 MDM - Abdominal Pain Medical Decision Making See MDM Lab Data 01/19/24 13:34 01/19/24 13:34 Labs/Radiology: Radiology Impressions Abdomen/Pelvis CT 01/19/24 13:23 IMPRESSION: No acute subdiaphragmatic pathology. COMMENTS: Consistent with the [employer]'s Incidental Findings Committee white paper (J Am Stevie Radiol 2018): Any incidental renal lesion less than 1 cm or classified as too small to characterize, or any incidental cystic renal lesion characterized as simple-appearing, is likely benign. No follow-up imaging is recommended for these lesions per consensus recommendations based on imaging criteria. Laboratory Results WBC 8.35 10^3/uL (3.29-11.43) 01/19/24 13:34 RBC 4.90 10^6/uL (3.85-5.65) 01/19/24 13:34 Hgb 14.60 g/dL (11.27-16.99) 01/19/24 13:34 Hct 44.6 % (36-47) 01/19/24 13:34 MCV 91.0 fl (85-98) 01/19/24 13:34 MCH 29.8 pg (27-33) 01/19/24 13:34 MCHC 32.7 g/dL (30-55) 01/19/24 13:34 RDW 12.5 % (12.1-15.1) 01/19/24 13:34 Plt Count 195 10^3/cmm (157-399) 01/19/24 13:34 MPV 11.0 fL (7.4-10.4) H 01/19/24 13:34 Neut % (Auto) 72.9 % 01/19/24 13:34 Lymph % (Auto) 15.7 % 01/19/24 13:34 [place] % (Auto) 7.4 % 01/19/24 13:34 Eos % (Auto) 2.9 % 01/19/24 13:34 Baso % (Auto) 0.6 % 01/19/24 13:34 Neut # (Auto) 6.09 10^3/uL (1.8-7.7) 01/19/24 13:34 Lymph # (Auto) 1.3 10^3/uL (0.8-4.8) 01/19/24 13:34 [place] # (Auto) 0.6 10^3/uL (0.2-0.9) 01/19/24 13:34 Eos # (Auto) 0.2 10^3/uL (0.0-0.8) 01/19/24 13:34 Baso # (Auto) 0.1 10^3/uL (0.0-0.1) 01/19/24 13:34 Nucleated RBC % (auto) 0 % 01/19/24 13:34 Nucleated RBCs # 0.0 /100WBC 01/19/24 13:34 Sodium 136 mmol/L (136-145) 01/19/24 13:34 Potassium 4.1 mmol/L (3.5-5.1) 01/19/24 13:34 Chloride 101 mmol/L (98-107) 01/19/24 13:34 Carbon Dioxide 22 mmol/L (22-29) 01/19/24 13:34 Anion Gap 17.1 (5-19) 01/19/24 13:34 BUN 17 mg/dL (6-20) 01/19/24 13:34 Creatinine 1.0 mg/dL (0.5-0.9) H 01/19/24 13:34 GFR Calculation 59.2 mL/min (90-130) L 01/19/24 13:34 Glucose 104 mg/dL (65-115) 01/19/24 13:34 Calculated Osmolality 284 mOsm/kg (285-295) L 01/19/24 13:34 Calcium 9.2 mg/dL (8.5-10.5) 01/19/24 13:34 Total Bilirubin 1.0 mg/dL (0.15-1.2) 01/19/24 13:34 AST 35 U/L (0-32) H 01/19/24 13:34 ALT 30 U/L (0-33) 01/19/24 13:34 Alkaline Phosphatase 77 U/L (35-105) 01/19/24 13:34 Total Protein 7.0 g/dL (6.6-8.7) 01/19/24 13:34 Albumin 4.2 g/dL (3.5-5.2) 01/19/24 13:34 Globulin 2.8 g/dL (1.3-4.6) 01/19/24 13:34 Lipase 30 U/L (13-60) 01/19/24 13:34 Urine Color Yellow (Yellow) 01/19/24 12:53 Urine Appearance Clear (CLEAR) 01/19/24 12:53 Urine pH 7 (5-7) 01/19/24 12:53 Ur Specific [place] 1.005 (1.005-1.030) 01/19/24 12:53 Urine Protein Neg (Negative) 01/19/24 12:53 Urine Glucose (UA) Norm (Normal) 01/19/24 12:53 Urine Ketones Negative (Negative) 01/19/24 12:53 Urine Blood 3+ (Negative) H 01/19/24 12:53 Urine Nitrate Negative (Negative) 01/19/24 12:53 Urine Bilirubin Neg (Negative) 01/19/24 12:53 Urine Urobilinogen Neg mg/dL (Negative) 01/19/24 12:53 Ur Leukocyte Esterase Trace (Negative) H 01/19/24 12:53 Urine RBC 5-10 /hpf (0-2) H 01/19/24 12:53 Urine WBC 0-4 /hpf (0-5) H 01/19/24 12:53 Ur Squamous Epith Cells 0-4 /hpf (0-5) H 01/19/24 12:53 Amorphous Sediment Not Reportable 01/19/24 12:53 Urine Bacteria Trace /hpf (NONE) 01/19/24 12:53 Urine Mucus Trace /hpf 01/19/24 12:53 All radiology interpretation(s) finalized by discharge Discharge Plan Discharge Patient Disposition: Home Condition: Stable Prescriptions: No Action pyridoxine (vitamin B6) [Vitamin B-6] 100 mg tablet 100 mg PO DAILY B12 Active 1,000 mcg tablet,chewable 500 mcg PO DAILY magnesium 200 mg tablet 400 mg PO DAILY cholecalciferol (vitamin D3) 50 mcg (2,000 unit) capsule 50 mcg PO DAILY fluconazole 200 mg tablet 200 mg PO .WEEKLY PRN (Reason: yeast infection) (DME) SOLE Supports See Rx Instructions .Route .MEDSUPPLY Qty: 1 0RF Rx Instructions: As directed hydroxychloroquine [Plaquenil] 200 mg tablet 200 mg PO DAILY potassium citrate 10 mEq (1,080 mg) tablet extended release 30 meq PO BID nitrofurantoin monohyd/m-cryst [Macrobid] 100 mg capsule 100 mg PO BID PRN (Reason: UTI) Qty: 60 2RF Rx Instructions: must administer with a meal/food estradiol 0.01 % (0.1 mg/gram) cream 1 g vaginal DAILY Qty: 42.5 3RF Rx Instructions: twice daily for 14 days and then apply twice weekly folic acid 1 mg tablet 1 mg PO DAILY Qty: 90 3RF Humira(CF) 40 mg/0.4 mL syringe kit See Rx Instructions SUBCUT .COMPLEX Qty: 2 12RF Rx Instructions: inject one - 40 mg/0.4 mL syringe every 2 weeks SUBCUT valacyclovir [Valtrex] 1 gram tablet 1,000 mg PO DAILY PRN (Reason: cold sores) Qty: 90 3RF estradiol 0.5 mg tablet 0.5 mg PO DAILY Qty: 90 5RF pantoprazole 40 mg tablet,delayed release (DR/EC) 40 mg PO BID Qty: 60 3RF ondansetron HCl [Zofran] 4 mg Tablet 4 mg PO Q6H PRN (Reason: Nausea) gabapentin 300 mg capsule 300 mg PO BID PRN (Reason: NERVE PAIN) fluoride (sodium) [PreviDent 5000 Dry Mouth] 1.1 % paste 1 applic PO .2XWEEKLY methenamine hippurate 1 gram tablet 1 g PO BID PRN (Reason: Recurrent UTI) Rx Instructions: 1 pill twice a day with 1 g vitamin C each dose After completion of prolonged antibiotic course. hydrocodone-acetaminophen 5-325 mg tablet 1 tab PO Q6H PRN (Reason: pain) Qty: 15 0RF furosemide 20 mg tablet 20 mg PO DAILY PRN (Reason: Edema) imiquimod 5 % cream in packet 1 applic topical DAILY Discharge Orders: Discharge ED (Routine); Ordered 01/19/24 Ordered By: John Panchal Referrals: Martha Ballesteros MD [Primary Care Provider] - Discharge Diet: Advance as tolerated Discharge Activity: Resume usual activity Patient Instructions: Opioid Safety, Pain Management Activity Restrictions/Additional Instructions: It has been a pleasure caring for you in the emergency department. Please ensure that you follow-up with your primary care physician for review of all data obtained during this encounter including any incidental findings and laboratory values. Keep in mind that if your condition changes in any way I recommend that you return to the emergency department for repeat evaluation. Take 1000 mg of Tylenol and 400 mg of Motrin at breakfast lunch and dinner. Coding Level of Care Code ED [employer] Consultant for [employer]
[2024-01-19] MEDS: iohexol 350 mg/mL 500 mL Btl (per mL) IV (13:48)
[2024-01-19 13:53] LABS: Basophils # 0.1 10^3/uL (0.0-0.1); Basophils % 0.6 %; Eosinophils # 0.2 10^3/uL (0.0-0.8); Eosinophils % 2.9 %; Hematocrit 44.6 % (36-47); Lymphocytes # 1.3 10^3/uL (0.8-4.8); Lymphocytes % 15.7 %; Mean Corpuscular HGB Conc 32.7 g/dL (30-55); Mean Corpuscular Hemoglobin 29.8 pg (27-33); Monocytes # 0.6 10^3/uL (0.2-0.9); Monocytes % 7.4 %; Neutrophils # 6.09 10^3/uL (1.8-7.7); Neutrophils % 72.9 %; Nucleated Red Blood Cells % 0 %; Platelet Count 195 10^3/cmm (157-399); Red Cell Distribution Width 12.5 % (12.1-15.1); White Blood Count 8.35 10^3/uL (3.29-11.43)
[2024-01-19] MEDS: sodium chloride 0.9% 500 ML IV (13:56)
[2024-01-19] MEDS: ketorolac 30 mg/mL INJ 15 MG IVP (13:58)
[2024-01-19 14:05] LABS: Alanine Aminotransferase 30 U/L (0-33); Albumin Level 4.2 g/dL (3.5-5.2); Alkaline Phosphatase 77 U/L (35-105); Anion Gap 17.1 (5-19); Aspartate Amino Transferase 35 U/L (0-32); Blood Urea Nitrogen 17 mg/dL (6-20); Calcium 9.2 mg/dL (8.5-10.5); Carbon Dioxide 22 mmol/L (22-29); Chloride 101 mmol/L (98-107); Creatinine Clr Calc Pharmacy 82.8949; Globulin 2.8 g/dL (1.3-4.6); Glomerular Filtration Rate 59.2 mL/min (90-130); Glucose 104 mg/dL (65-115); Lipase 30 U/L (13-60); Osmolality Calculated 284 mOsm/kg (285-295); Potassium 4.1 mmol/L (3.5-5.1); Sodium 136 mmol/L (136-145)
[2024-01-19 14:11] VITALS: O2SAT 97
[2024-01-19 14:21] LABS: Blood Urine 3+ (Negative); Glucose Urine UA Norm (Normal); Ketones Urine Negative (Negative); Nitrate Urine Negative (Negative); Protein Urine Neg (Negative); Specific Gravity, Urine 1.005 (1.005-1.030); Urine Appearance Clear (CLEAR); Urine Color Yellow (Yellow); pH Urine 7 (5-7)
[2024-01-19 14:22] LABS: Add Urine Microscopic? YES; Bilirubin Urine Neg (Negative); Leukocyte Esterase Urine Trace (Negative); Urobilinogen Urine Neg (Negative)
[2024-01-19 14:23] LABS: Bacteria Urine TRACE /hpf; Mucus Urine TRACE /hpf; Squamous Epithelial Cell Urine 0-4 /hpf (0-5); WBC Urine 0-4 /hpf (0-5)
[2024-01-19 14:24] LABS: Add Urine Culture? No
[2024-01-19 14:30] VITALS: O2SAT 100
[2024-01-19 14:39] VITALS: BP 140/77; O2SAT 98
[2024-01-19 15:22] VITALS: BP 140/77; PULSE 66; RESP 16; O2SAT 99
== END 2024-01-19 15:23 | disposition home or self-care (01) ==
PROVIDERS: Emergency Provider General Practice; PCP Internal Medicine
DX: R10.31 Right lower quadrant pain (principal)
CPT/HCPCS: 36415; 74177; 80053; 81001; 83690; 85025; 96361; 96374; 99285; J1885; J7040; Q9967

== ENCOUNTER 2024-01-24 07:15 | Outpatient (CLI) | payer OTHER, SELFPAY ==
--- NOTE | 2024-01-24 07:15 | USR_ITS ---
PROCEDURE INFORMATION: Exam: US Pelvis, Complete, Non-Obstetric Exam date and time: 01/24/2024 7:17 AM Age: 48 years old Clinical indication: Pelvic pain; Additional info: R10.2 - pelvic and perineal pain TECHNIQUE: Imaging protocol: Transabdominal pelvic nonobstetric ultrasound. Complete exam. Real time ultrasound with image documentation. COMPARISON: US renal BI* [id number] 08/27/2021 9:42 AM FINDINGS: Uterus: The uterus has been resected. Right ovary/adnexa: The right ovary contains multiple follicular cysts with the largest measuring 2.6 cm in diameter. A few of the follicles are hemorrhagic. There is good Doppler flow present. Left ovary/adnexa: The left ovary has been resected. Intraperitoneal space: No intraperitoneal fluid. Urinary bladder: Normal. US/US pelv w/transvag [id number] IMPRESSION: Right ovarian cysts. Otherwise normal pelvic sonogram.
== END 2024-01-24 07:16 | disposition home or self-care (01) ==
PROVIDERS: PCP Internal Medicine; Visit Provider Nurse Practitioner Women's Health
DX: R10.2 Pelvic and perineal pain (principal); N83.201 Unspecified ovarian cyst, right side
CPT/HCPCS: 76830; 76856

== ENCOUNTER → 2024-02-01 15:06 | Outpatient (BNVA) | payer OTHER, SELFPAY | PROVIDERS: PCP Internal Medicine; Visit Provider Podiatrist Foot & Ankle Surgery | DX: S86.111A Strain of other muscle(s) and tendon(s) of posterior muscle group at lower leg level, right leg, initial encounter; X58.XXXA Exposure to other specified factors, initial encounter | CPT/HCPCS: 73610 ==

== ENCOUNTER 2024-04-08 08:22 | Outpatient (CLI) | payer OTHER, SELFPAY ==
--- NOTE | 2024-04-08 08:30 | MM_ITS ---
WS: [id number] BILATERAL SCREENING DIGITAL TOMOSYNTHESIS MAMMOGRAM WITH CAD HISTORY: Z12.39 - Encounter for other screening for malignant neop... COMPARISON: 04/03/2023, 03/21/2022 and 03/08/2021 Bilateral CC and MLO views with tomosynthesis and synthetic mammography submitted. Computer aided det ection analyzed. Breast composition: There are scattered areas of fibroglandular density. No suspicious masses, microc alcifications or architectural distortion. MM/MM scr BI tomosynthesis [id number] IMPRESSION: BI-RADS: 2 - Benign. FOLLOW UP: 1 Year Follow-up
== END 2024-04-08 08:23 | disposition home or self-care (01) ==
LOC: RAD 08:22
PROVIDERS: PCP Internal Medicine; Visit Provider Nurse Practitioner Women's Health
DX: Z12.31 Encounter for screening mammogram for malignant neoplasm of breast (principal); R92.323 Mammographic fibroglandular density, bilateral breasts
CPT/HCPCS: 77063; 77067

== ENCOUNTER 2024-11-08 13:12 | Outpatient (CLI) | payer OTHER, SELFPAY ==
--- NOTE | 2024-11-08 13:16 | US_ITS ---
WS: [id number] Bilateral renal ultrasound, 11/08/2024 Clinical Data: RECURRENT LEFT FLANK PAIN Comparison: Bilateral renal ultrasound, 08/27/2021 Findings: The right kidney measures 10.5 cm x 6.7 cm x 5.2 cm and the left kidney is 12.7 cm x 5.3 cm x 7.0 cm. There are bilateral cysts with little change in size or number. The largest right cyst measures 4.4 x 4.5 x 4.8 cm. The largest left cyst measures 2.0 x 2.3 x 2.9 cm. There is no hydronephrosis and no definite renal calculi. No renal masses are seen. The cortical margins were difficult to see. The abdominal aorta and inferior vena cava show no vascular abnormalities. The bladder was scanned and was not remarkable. US/US renal BI* [id number] Impression: No change in bilateral renal cysts.
== END 2024-11-08 13:13 | disposition home or self-care (01) ==
PROVIDERS: PCP Internal Medicine; Visit Provider Internal Medicine
DX: R10.9 Unspecified abdominal pain (principal); Z87.440 Personal history of urinary (tract) infections; N28.1 Cyst of kidney, acquired
CPT/HCPCS: 76770; 80076; 85025

== ENCOUNTER → 2024-12-09 10:37 | Outpatient (BNVA) | payer OTHER, SELFPAY | PROVIDERS: PCP Internal Medicine; Visit Provider Nurse Practitioner Women's Health | DX: R31.9 Hematuria, unspecified (principal) | CPT/HCPCS: 87086 ==

== ENCOUNTER → 2025-01-01 11:18 | Outpatient (BNVA) | payer OTHER, SELFPAY | PROVIDERS: PCP Internal Medicine; Visit Provider Nurse Practitioner Women's Health | DX: R41.89 Other symptoms and signs involving cognitive functions and awareness (principal); R53.83 Other fatigue; R68.82 Decreased libido | CPT/HCPCS: 83525; 84270; 84402; 84403 ==

== ENCOUNTER → 2025-01-07 10:35 | Outpatient (BNVA) | payer OTHER, SELFPAY | PROVIDERS: PCP Internal Medicine; Visit Provider Nurse Practitioner Women's Health | DX: R30.0 Dysuria (principal) | CPT/HCPCS: 87077; 87086; 87184 ==

== ENCOUNTER → 2025-01-24 14:26 | Outpatient (BNVA) | payer OTHER, SELFPAY | PROVIDERS: PCP Internal Medicine; Visit Provider Obstetrics & Gynecology | DX: M35.00 Sjogren syndrome, unspecified (principal) | CPT/HCPCS: 80076; 85025 ==

== ENCOUNTER → 2025-01-28 08:34 | Outpatient (BNVA) | payer OTHER, SELFPAY | PROVIDERS: PCP Internal Medicine; Visit Provider Obstetrics & Gynecology | DX: Z13.220 Encounter for screening for lipoid disorders (principal); N95.1 Menopausal and female climacteric states | CPT/HCPCS: 80061; 82670; 83525 ==

== ENCOUNTER 2025-02-20 14:48 | Outpatient (CLI) | payer OTHER, SELFPAY ==
--- NOTE | 2025-02-20 14:55 | CT_ITS ---
WS: [id number] CT ABDOMEN AND PELVIS NONCONTRAST HISTORY: NEPHROLITHIASIS TECHNIQUE: Imaging performed through the abdomen and pelvis. Coronal and sagittal reformats are submitted. All CT scans at [facility] use at least one of these dose optimization techniques: automated exposure control; mA and/or kV adjustment per patient size (includes targeted exams where dose is matched to clinical indication); or iterative reconstruction. DLP: 615.17 mGy.cm COMPARISON: 01/19/2024 Lower thorax: Lung bases are clear. Visualized heart is normal. Small hiatal hernia. Liver: Normal size liver. Pneumobilia. Gallbladder: Prior cholecystectomy. No common bile duct dilatation. Pancreas: Normal size and attenuation. Normal pancreatic duct. No pancreatitis or mass. Spleen: Normal. Adrenal glands: Normal. No mass. Right kidney: RIGHT kidney is normal size but contains numerous cysts which have been previously described. Cysts range in size from a few millimeters to 6.3 cm. No hydronephrosis. There are a few nonobstructing calcifications in the renal pelvis. RIGHT ureter is not dilated. Left kidney: Normal size kidney with numerous previously described cysts and nonobstructing calcifications. No perinephric stranding. Ureter is not dilated. Aorta: Normal abdominal aorta, no aneurysm or atherosclerosis. No free fluid, intraperitoneal air or significant lymphadenopathy. GI tract: Normal noncontrast imaging of the stomach, small bowel and colon. No obstruction or wall thickening. Normal appendix. Abdominal wall: Negative. No hernia. Pelvis: No free fluid. RIGHT ovarian follicle. Prior hysterectomy. Osseous structures: No destructive bone lesions. CT/CT kidney stone [id number] IMPRESSION: 1. Multiple bilateral renal cysts and calcifications. No renal obstruction. Kn own renal cysts have been previously described. 2. No perinephric stranding. 3. Prior cholecystectomy. 4. No free fluid or adenopathy.
== END 2025-02-20 14:49 | disposition home or self-care (01) ==
LOC: RAD 14:49
PROVIDERS: PCP Internal Medicine; Visit Provider Urology
DX: N20.0 Calculus of kidney (principal); K44.9 Diaphragmatic hernia without obstruction or gangrene; Z90.49 Acquired absence of other specified parts of digestive tract; N28.1 Cyst of kidney, acquired
CPT/HCPCS: 74176

== ENCOUNTER 2025-04-10 12:48 | Outpatient (CLI) | payer OTHER, SELFPAY ==
--- NOTE | 2025-04-10 13:00 | MM_ITS ---
WS: [id number] BILATERAL 3D TOMOSYNTHESIS DIGITAL SCREENING MAMMOGRAPHY WITH CAD CLINICAL INFORMATION: Z12.31 - Encounter for screening mammogram for malignant ... HISTORY: Screening mammogram. No current complaints. History of breast reduction COMPARISON: 2023 TECHNIQUE: Bilateral CC and MLO views. FINDINGS: Scattered fibroglandular densities bilaterally. No suspicious focal mass, asymmetry, calcifications, or architectural distortion. No evidence of malignancy. A few small intramammary lymph nodes upper outer LEFT breast. MM/MM scr tomosynthesis [id number] IMPRESSION: DENSITY: There are scattered areas of fibroglandular density. BI-RADS: 2 - Benign. FOLLOW UP: 1 Year Follow-up Recommend return to annual screening mammography.
--- NOTE | 2025-04-10 13:30 | XR_ITS ---
WS: [email or web address] SCREENING DEXA SCAN GetThis CLINICAL INFORMATION: Z79.899 - Other ocean transportation intermediary (current) drug therapy COMPARISON: None. FINDINGS: The L1-L4 bone mineral density measures 1.164 g/cm2. This corresponds to a T score score of -0.1 and Z score of -0.6. Left femoral neck bone mineral density measures 1.022 g/cm2. This corresponds to a T score of 0.1 and Z score of 0.0. Right femoral neck bone mineral density measures 0.987 g/cm2. This corresponds to a T score -0.2of and Z score of -0.3. Mean femoral neck bone mineral density measures 1.005 g/cm2. This corresponds to a T score of 0.0 and Z score of -0.2. XR/XR DEXA axial skeleton* [id number] IMPRESSION: Normal bone mineralization. Patient's FRAX calculated 10 year probability for major osteoporotic fracture i s 9.1% and osteoporotic hip fracture is 0.7%.
== END 2025-04-10 12:49 | disposition home or self-care (01) ==
LOC: RAD 12:49
PROVIDERS: PCP Internal Medicine; Visit Provider Nurse Practitioner Women's Health
DX: Z12.31 Encounter for screening mammogram for malignant neoplasm of breast (principal); Z13.820 Encounter for screening for osteoporosis; Z79.899 Other long term (current) drug therapy; R92.323 Mammographic fibroglandular density, bilateral breasts; N63.21 Unspecified lump in the left breast, upper outer quadrant
CPT/HCPCS: 77063; 77067; 77080

== ENCOUNTER → 2025-04-23 11:26 | Outpatient (BNVA) | payer OTHER, SELFPAY | PROVIDERS: PCP Internal Medicine; Visit Provider Nurse Practitioner Women's Health | DX: R30.0 Dysuria (principal); Q61.3 Polycystic kidney, unspecified | CPT/HCPCS: 81000; 87086 ==

== ENCOUNTER → 2025-05-23 10:18 | Outpatient (BNVA) | payer OTHER, SELFPAY | PROVIDERS: PCP Internal Medicine; Visit Provider Nurse Practitioner Women's Health | DX: Z79.899 Other long term (current) drug therapy (principal); R79.89 Other specified abnormal findings of blood chemistry | CPT/HCPCS: 80053; 84403; 85025 ==

== ENCOUNTER → 2025-06-17 07:43 | Outpatient (BNVA) | payer OTHER, SELFPAY | PROVIDERS: PCP Internal Medicine; Visit Provider Nurse Practitioner Women's Health | DX: N39.0 Urinary tract infection, site not specified (principal) | CPT/HCPCS: 84315 ==

== ENCOUNTER → 2025-07-09 05:15 | Outpatient (BNVA) | payer OTHER, SELFPAY | PROVIDERS: PCP Internal Medicine; Visit Provider Nurse Practitioner Women's Health | DX: K90.41 Non-celiac gluten sensitivity (principal); M35.00 Sjogren syndrome, unspecified; Z79.890 Hormone replacement therapy | CPT/HCPCS: 80061; 82306; 82607; 82670; 82728; 82746; 83525; 84443 ==